=== PATIENT | female | born 1990 | race Caucasian/White ===

== ENCOUNTER 2021-01-31 19:31 | Emergency (ER) | payer OTHER ==
[2021-01-31 19:57] VITALS: BP 123/72
--- NOTE | 2021-01-31 20:15 | ED Physician Documentation ---
History of Present Illness - Stated complaint Stated Complaint: BLISTERS ON BACK - Chief complaint Chief Complaint: General - History obtained from History obtained from: Patient (Previously healthy 30-year-old woman developed and initially itchy and now painful rash to the left side of the upper back starting about 2 days ago. She kind of feels generally achy. And fatigue. No measured fevers. 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 - Present Medications Home Medications: Ambulatory Orders Medication Instructions Recorded Confirmed Valacyclovir HCl [Valtrex] 1,000 mg PO TID #30 tablet 01/31/21 predniSONE [Deltasone] 20 mg PO [id number] #21 tab 01/31/21 - Allergies Allergies/Adverse Reactions: Allergies Allergy/AdvReac Type Severity Reaction Status Date / Time No Known Drug Allergies Allergy Verified 01/31/21 19:57 - Social History Does the pt smoke?: No Smoking Status: Never smoker Does the pt drink ETOH?: No Does the pt have substance abuse?: No - Immunizations Immunizations are current?: Yes - POLST Patient has POLST: No PD ED PE NORMAL - Vitals Vital signs reviewed: Yes - General General: Alert and oriented X 3, No acute distress - HEENT HEENT: PERRL, EOMI - Neck Neck: No bony TTP - Derm Derm: Other (She has a patch of shingles on the left side of the back about T6. No superinfection.) - Neuro Neuro: Alert and oriented X 3, Normal speech Results - Vitals Vitals: Vital Signs - 24 hr 01/31/21 19:55 Temperature 36.2 C L Heart Rate 84 Respiratory 16 Rate Blood Pressure 123/72 O2 Saturation 99 Oxygen O2 Source Room air Departure - Departure Disposition: 01 Home, Self Care Clinical Impression: Herpes zoster Qualifiers: Herpes zoster complications: without complications Qualified Code(s): B02.9 - Zoster without complications Condition: Good Record reviewed to determine appropriate education?: Yes Instructions: ED Shingles Prescriptions: predniSONE [Deltasone] 20 mg PO [id number] #21 tab Valacyclovir HCl [Valtrex] 1,000 mg PO TID #30 tablet Comments: Return as needed for new or worsening symptoms. Mind the advice about being contagious for chickenpox until the area of shingles is crusted over.
[2021-01-31] MEDS: valACYclovir 500 MG TABLET PO STA (20:19)
[2021-01-31] MEDS: predniSONE 20 MG TABLET PO STA (20:19)
== END 2021-01-31 20:35 | disposition home or self-care (01) ==
LOC: ED 19:31
DX: B02.9 Zoster without complications (principal)
CPT/HCPCS: 99282; 99283; A9270; J7512

== ENCOUNTER 2021-03-17 11:00 | Outpatient (CLI) | payer OTHER ==
[2021-03-17 11:21] LABS: BASOPHILS % (AUTO) 0.5 %; EOSINOPHILS % (AUTO) 0.3 %; HCT - HEMATOCRIT 34.9 % (37.0-47.0); HGB - HEMOGLOBIN 12.9 g/dL (12.0-16.0); LYMPHOCYTES # (AUTO) 1.8 10^3/uL (1.5-3.5); LYMPHOCYTES % (AUTO) 29.3 %; MEAN CORPUSCULAR HEMOGLOBIN 32.4 pg (27.0-31.0); MEAN CORPUSCULAR VOLUME 87.7 fL (81.0-99.0); MONOCYTES # (AUTO) 0.4 10^3/uL (0.0-1.0); MONOCYTES % (AUTO) 6.8 %; NEUTROPHILS # (AUTO) 3.8 10^3/uL (1.5-6.6); NEUTROPHILS % (AUTO) 62.8 %; PLT - PLATELET COUNT 206 10^3/uL (130-450); RED BLOOD COUNT 3.98 10^6/uL (4.20-5.40); RED CELL DISTRIBUTION WIDTH 12.1 % (12.0-15.0); WHITE BLOOD COUNT 6.1 x10^3/uL (4.8-10.8)
[2021-03-18 10:02] LABS: HEPATITIS C ANTIBODY NON-REACTIVE (NON-REACTIVE)
[2021-03-18 14:41] LABS: HEPATITIS B SURFACE ANTIGEN NON-REACTIVE (NON-REACTIVE)
[2021-03-20 12:30] LABS: HIV AG/AB 4TH GEN NON-REACTIVE (NON-REACTIVE)
== END 2021-03-17 11:01 | disposition home or self-care (01) ==
LOC: LAB 11:00
PROVIDERS: ATTEND Obstetrics & Gynecology
DX: Z36.89 Encounter for other specified antenatal screening (principal); O20.9 Hemorrhage in early pregnancy, unspecified
CPT/HCPCS: 36415; 84702; 85025; 86592; 86762; 86787; 86803; 86850; 86900; 86901; 87340; 87389

== ENCOUNTER 2021-03-17 17:46 | Emergency (ER) | payer OTHER ==
[2021-03-17 18:16] LABS: BASOPHILS % (AUTO) 0.3 %; EOSINOPHILS % (AUTO) 0.3 %; HCT - HEMATOCRIT 35.5 % (37.0-47.0); LYMPHOCYTES # (AUTO) 2.3 10^3/uL (1.5-3.5); LYMPHOCYTES % (AUTO) 31.2 %; MEAN CORPUSCULAR HEMOGLOBIN 31.9 pg (27.0-31.0); MEAN CORPUSCULAR HGB CONC 36.6 g/dL (32.0-36.0); MEAN PLATELET VOLUME 9.9 fL (7.9-10.8); MONOCYTES # (AUTO) 0.4 10^3/uL (0.0-1.0); NEUTROPHILS # (AUTO) 4.5 10^3/uL (1.5-6.6); NEUTROPHILS % (AUTO) 61.9 %; PLT - PLATELET COUNT 228 10^3/uL (130-450); RED BLOOD COUNT 4.08 10^6/uL (4.20-5.40); RED CELL DISTRIBUTION WIDTH 12.1 % (12.0-15.0); WHITE BLOOD COUNT 7.3 x10^3/uL (4.8-10.8)
[2021-03-17 18:29] LABS: ALBUMIN 4.5 g/dL (3.2-5.5); ALBUMIN/GLOBULIN RATIO 1.5 (1.0-2.2); BILIRUBIN,TOTAL 0.7 mg/dL (0.2-1.0); CALCIUM 9.3 mg/dL (8.5-10.3); CREATININE 0.7 mg/dL (0.4-1.0); POTASSIUM 3.6 mmol/L (3.5-5.0); TOTAL PROTEIN 7.6 g/dL (6.7-8.2)
[2021-03-17] MEDS ORDERED: ACETAMINOPHEN 325 MG TABLET PO STA (18:42)
--- NOTE | 2021-03-17 18:43 | ED Physician Documentation ---
PD HPI ABD PAIN - Stated complaint Stated Complaint: BLEEDING,DIZZY,BACK PX, CRAMPS +PREG - Chief complaint Chief Complaint: Abd Pain - History obtained from History obtained from: Patient - History of Present Illness Pain level max: 5 Pain level now: 4 - Additional information Additional information: Patient is a 30-year-old female, 3 para 2 who presents to the emergency department with abdominal pain and cramping. She states that she believes she is about 9 weeks . Has had vaginal bleeding/spotting last night and today. Nothing makes it better or worse. No nausea or vomiting. No diarrhea or constipation. No fevers. No chills. No coughing. Review of Systems Constitutional: denies: Fever, Chills Throat: denies: Sore throat Cardiac: denies: Chest pain / pressure, Palpitations Respiratory: denies: Cough GI: reports: Abdominal Pain (Lower abdomen, crampy). 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 - Present Medications Home Medications: Ambulatory Orders Medication Instructions Recorded Confirmed Metoclopramide [Reglan] 5 mg PO Q6HR PRN 03/17/21 03/17/21 - Allergies Allergies/Adverse Reactions: Allergies Allergy/AdvReac Type Severity Reaction Status Date / Time No Known Drug Allergies Allergy Verified 03/17/21 17:55 - Social History Does the pt smoke?: No Smoking Status: Never smoker Does the pt drink ETOH?: No Does the pt have substance abuse?: No - Immunizations Immunizations are current?: Yes - POLST Patient has POLST: No PD ED PE NORMAL - Vitals Vital signs reviewed: Yes - General General: Alert and oriented X 3, No acute distress - HEENT HEENT: Moist mucous membranes - Neck Neck: Supple, no meningeal sign - Cardiac Cardiac: RRR - Respiratory Respiratory: No respiratory distress, Clear bilaterally - Abdomen Abdomen: Soft, Non distended, Other (Mild diffuse lower abdominal tenderness to palpation. No peritoneal signs.) - Back Back: No CVA TTP, No spinal TTP - Derm Derm: Warm and dry, No rash - Extremities Extremities: No edema, No calf tenderness / cord - Neuro Neuro: Alert and oriented X 3 - Psych Psych: Normal mood, Normal affect Results - Vitals Vitals: Vital Signs - 24 hr 03/17/21 03/17/21 03/17/21 17:51 18:34 20:05 Temperature 36.7 C Heart Rate 105 H 88 78 Respiratory 18 18 18 Rate Blood Pressure 114/82 H O2 Saturation 98 98 100 03/17/21 21:47 Temperature 37.0 C Heart Rate 89 Respiratory 12 Rate Blood Pressure 122/78 O2 Saturation 100 Oxygen O2 Source Room air - Labs Labs: Laboratory Tests 03/17/21 03/17/21 03/17/21 18:00 18:09 18:09 WBC 7.3 RBC 4.08 L Hgb 13.0 Hct 35.5 L MCV 87.0 MCH 31.9 H MCHC 36.6 H RDW 12.1 Plt Count 228 MPV 9.9 Neut # (Auto) 4.5 Lymph # (Auto) 2.3 [place] # (Auto) 0.4 Eos # (Auto) 0.0 Baso # (Auto) 0.0 Absolute Nucleated RBC 0.00 Nucleated RBC % 0.0 Sodium 137 Potassium 3.6 Chloride 103 Carbon Dioxide 24 Anion Gap 10.0 BUN 12 Creatinine 0.7 Estimated GFR (MDRD) 100 Glucose 110 H Calcium 9.3 Total Bilirubin 0.7 AST 18 ALT 16 Alkaline Phosphatase 51 Total Protein 7.6 Albumin 4.5 Globulin 3.1 Albumin/Globulin Ratio 1.5 Lipase 33 HCG, Quant Urine Color YELLOW Urine Clarity HAZY Urine pH 7.5 Ur Specific [place] 1.010 Urine Protein NEGATIVE Urine Glucose (UA) NEGATIVE Urine Ketones NEGATIVE Urine Occult Blood MODERATE H Urine Nitrite NEGATIVE Urine Bilirubin NEGATIVE Urine Urobilinogen 0.2 (NORMAL) Ur Leukocyte Esterase NEGATIVE Urine RBC 6-10 H Urine WBC 4-5 Ur Squamous Epith Cells MOD Squamous H Urine Bacteria Few Urine Mucus Few Strands Ur Microscopic Review INDICATED Urine Culture Comments NOT INDICATED 03/17/21 18:09 WBC RBC Hgb Hct MCV MCH MCHC RDW Plt Count MPV Neut # (Auto) Lymph # (Auto) [place] # (Auto) Eos # (Auto) Baso # (Auto) Absolute Nucleated RBC Nucleated RBC % Sodium Potassium Chloride Carbon Dioxide Anion Gap BUN Creatinine Estimated GFR (MDRD) Glucose Calcium Total Bilirubin AST ALT Alkaline Phosphatase Total Protein Albumin Globulin Albumin/Globulin Ratio Lipase HCG, Quant 660887.00 Urine Color Urine Clarity Urine pH Ur Specific [place] Urine Protein Urine Glucose (UA) Urine Ketones Urine Occult Blood Urine Nitrite Urine Bilirubin Urine Urobilinogen Ur Leukocyte Esterase Urine RBC Urine WBC Ur Squamous Epith Cells Urine Bacteria Urine Mucus Ur Microscopic Review Urine Culture Comments - Rads (name of study) OB US Radiology: Prelim report reviewed, EMP read contemporaneously, See rad report (Live IUP. Small subchorionic hemorrhage. Right corpus luteum cyst. Approximately 7 weeks 3 days) PD MEDICAL DECISION MAKING - ED course Complexity details: reviewed results, re-evaluated patient, considered differential, d/w patient ED course: 30-year-old female with vaginal bleeding affecting early . Has a live IUP. No significant lab abnormalities. She has approximately 7 weeks EGA. We will have her follow-up with OB for further care. Patient counseled regarding signs and symptoms for which I believe and urgent re-evaluation would be necessary. Patient with good understanding of and agreement to plan and is comfortable going home at this time This document was made in part using voice recognition software. While efforts are made to proofread this document, sound alike and grammatical errors may occur. No evidence of ectopic or heterotopic Departure - Departure Disposition: 01 Home, Self Care Clinical Impression: Vaginal bleeding affecting early Condition: Good Instructions: ED Miscarriage Poss Follow-Up: Provider,Other [Primary Care Provider] - Doug Turner MD [Provider Admit Priv/Credential] - Comments: Please follow-up with OB for further care. They should repeat your hCG in 3 to 4 days. Return if you worsen. Your ultrasound shows that you are about 7 weeks along. You do have a very small subchorionic hemorrhage, this is often seen in early . There is a heartbeat present. Discharge Date/Time: 03/17/21 21:50
[2021-03-17 19:01] LABS: BILIRUBIN,URINE NEGATIVE (NEGATIVE); GLUCOSE, URINE (UA) NEGATIVE (NEGATIVE); KETONES,URINE (UA) NEGATIVE (NEGATIVE); LEUKOCYTE ESTERASE, URINE NEGATIVE (NEGATIVE); NITRITE,URINE NEGATIVE (NEGATIVE); OCCULT BLOOD,URINE MODERATE (NEGATIVE); PH,URINE 7.5 PH (5.0-7.5); PROTEIN,URINE NEGATIVE (NEGATIVE); UROBILINOGEN,URINE 0.2 (NORMAL) E.U./dL (NORMAL)
[2021-03-17 19:02] LABS: CLARITY,URINE HAZY (CLEAR)
[2021-03-17 19:10] LABS: BACTERIA,URINE Few /HPF (None Seen); MUCUS,URINE Few Strands; SQUAMOUS EPITHELIAL CELL,UR MOD Squamous (<= Few)
[2021-03-17 21:47] VITALS: BP 122/78
--- NOTE | 2021-03-17 21:55 | Ultrasound Report ---
PROCEDURE: OB First Trimester w/TV INDICATIONS: preg, vag bleed OUTSIDE/PRIOR DATING DATA: Last menstrual period (LMP): 01/13/2021. LMP-based estimated date of delivery (LATRELL): 10/20/2021. First dating scan (date and location): 03/17/2021. Estimated date of delivery (LATRELL) from first dating scan: 11/01/2021. TECHNIQUE: Real-time scanning was performed of the fetus and maternal pelvic organs, with image documentation. Endovaginal scanning was also performed to better visualize the fetus and maternal ovaries. COMPARISON: None. FINDINGS: Embryo: There is an intrauterine with a gestational sac, yolk sac, and pole identifi ed. The crown-rump length measures up to 1.1 cm corresponding to a gestational age of 7 weeks 2 days. There is heart motion with a rate of 1 45 bpm. There is a heterogeneous hypoechoic perigestati onal region compatible with a subchorionic hematoma measuring approximately 2.7 x 1.1 x 1.3 cm. The c ervix is closed and measures approximately 4.9 cm. Measurement variability in dating: +/- 4 weeks by LMP, +/- 7 days by mean sac diameter (use before 6 weeks gestation if crown-rump length not able to be measured), +/- 5 days by crown-rump length (6-12 weeks gestation). Maternal organs: Ovaries appear within normal size limits. There is a hypoechoic oval structure with in the right ovary with peripheral vascularity on color Doppler interrogation suggestive of a corpus luteal cyst. This measures approximately 2.3 x 2.1 x 1.9 cm. There is patent arterial and venous flow demonstrated within the right ovary.. IMPRESSION: 1. Single living intrauterine with calculated gestational age of 7 weeks 2 days correspondi ng to an estimated delivery date of 11/01/2021. 2. Small subchorionic hematoma demonstrated. Recommend clinical follow-up and repeat ultrasound if in dicated. Reviewed by: Saud Matthews MD on 03/17/2021 9:54 PM PST Approved by: Sadu Matthews MD on 03/17/2021 9:54 PM PST Station ID: [id number]
== END 2021-03-17 21:50 | disposition home or self-care (01) ==
LOC: ED 17:46
DX: O46.91 Antepartum hemorrhage, unspecified, first trimester (principal); Z3A.01 Less than 8 weeks gestation of pregnancy; O20.9 Hemorrhage in early pregnancy, unspecified; Z36.89 Encounter for other specified antenatal screening
CPT/HCPCS: 36415; 76801; 76817; 80053; 81001; 83690; 84702; 85025; 86592; 86762; 86787; 86803; 86850; 86900; 86901; 87340; 87389; 99282; 99284; A9270; 81003; 87086

== ENCOUNTER 2021-03-20 12:08 | Outpatient (CLI) | payer OTHER | END 2021-03-20 12:09 | disposition home or self-care (01) | LOC: LAB 12:08 | PROVIDERS: ATTEND Obstetrics & Gynecology | DX: O20.9 Hemorrhage in early pregnancy, unspecified (principal) | CPT/HCPCS: 36415; 84702 ==

== ENCOUNTER 2021-03-30 10:18 | Outpatient (CLI) | payer OTHER ==
--- NOTE | 2021-03-31 14:06 | Ultrasound Report ---
PROCEDURE: OB First Trimester INDICATIONS: POSITIVE TEST, DATING OUTSIDE/PRIOR DATING DATA: Last menstrual period (LMP): 01/13/2021. LMP-based estimated date of delivery (LATRELL): 10/20/2021. First dating scan (date and location): 03/17/2021. Estimated date of delivery (LATRELL) from first dating scan: 11/01/2021. The below data below was generated using the ultrasound LATRELL of 11/01/2021 TECHNIQUE: Real-time scanning was performed of the fetus and maternal pelvic organs, with image documentation. COMPARISON: OB ultrasound 03/17/2021 FINDINGS: Embryo: Single live intrauterine is identified with crown-rump length measuring 2.3 cm coa rse 9-9 weeks 0 days. Previous subchorionic hemorrhage is no longer visualized. Heart rate: 173 bpm. Measurement variability in dating: +/- 4 weeks by LMP, +/- 7 days by mean sac diameter (use before 6 weeks gestation if crown-rump length not able to be measured), +/- 5 days by crown-rump length (6-12 weeks gestation). Maternal organs: Ovaries are unremarkable within visualized portions. IMPRESSION: 1. Single live intrauterine with ultrasound gestational age today of 9 weeks 0 days compare d to 9 weeks 1 day from initial ultrasound. 2. Previous subchorionic hemorrhage is no longer visualized. Reviewed by: Onelia Landon MD on 03/31/2021 2:04 PM PST Approved by: Onelia Landon MD on 03/31/2021 2:04 PM PST Station ID: [id number]
== END 2021-03-30 10:19 | disposition home or self-care (01) ==
LOC: DI 10:18
PROVIDERS: ATTEND Obstetrics & Gynecology
DX: Z32.01 Encounter for pregnancy test, result positive (principal)

== ENCOUNTER 2021-04-11 09:45 | Outpatient (CLI) | payer OTHER ==
[2021-04-11 10:36] LABS: % IRON SATURATION 28 % (20-50); IRON 103 ug/dL (28-170); TOTAL IRON BINDING CAPACITY 371 ug/dL (250-450); TRANSFERRIN 265 mg/dL (192-382)
== END 2021-04-11 09:46 | disposition home or self-care (01) ==
LOC: LAB 09:45
PROVIDERS: ATTEND Obstetrics & Gynecology
DX: O90.81 Anemia of the puerperium (principal)
CPT/HCPCS: 36415; 81599; 82728; 83020; 83540; 84466; 85014; 85018; 85041

== ENCOUNTER 2021-05-25 08:00 | Outpatient (CLI) | payer OTHER ==
[2021-05-25 15:54] LABS: BILIRUBIN,URINE NEGATIVE (NEGATIVE); GLUCOSE, URINE (UA) NEGATIVE (NEGATIVE); KETONES,URINE (UA) NEGATIVE (NEGATIVE); LEUKOCYTE ESTERASE, URINE NEGATIVE (NEGATIVE); NITRITE,URINE NEGATIVE (NEGATIVE); OCCULT BLOOD,URINE NEGATIVE (NEGATIVE); PROTEIN,URINE NEGATIVE (NEGATIVE); UROBILINOGEN,URINE 0.2 (NORMAL) E.U./dL (NORMAL)
[2021-05-25 16:47] LABS: BACTERIA,URINE None Seen /HPF (None Seen); CLARITY,URINE CLEAR (CLEAR); RBC,URINE None Seen /HPF (0-5); SQUAMOUS EPITHELIAL CELL,UR RARE Squamous (<= Few); WBC,URINE 0-3 /HPF (0-5)
[2021-05-25 21:17] LABS: CHLAMYDIA TRACHOMATIS DNA NEGATIVE (NEGATIVE); NEISSERIA GONORRHOEAE DNA NEGATIVE (NEGATIVE); TRICHOMONAS VAGINALIS DNA NEGATIVE (NEGATIVE)
== END 2021-05-25 23:59 ==
LOC: LAB 08:00
PROVIDERS: ATTEND Obstetrics & Gynecology
DX: R30.0 Dysuria (principal); Z11.3 Encounter for screening for infections with a predominantly sexual mode of transmission
CPT/HCPCS: 81001; 87086; 87491; 87591; 87661

== ENCOUNTER 2021-05-28 09:20 | Emergency (ER) | payer OTHER ==
--- NOTE | 2021-05-28 09:39 | ED Physician Documentation ---
History of Present Illness - Stated complaint Stated Complaint: ABD CRAMPING/BLEEDING - Chief complaint Chief Complaint: Abd Pain - History obtained from History obtained from: Patient - History of Present Illness Pain level max: 3 Pain level now: 2 - Additonal information Additional information: Patient is a 30-year-old female, 3 para 2 who presents to the emergency department vaginal bleeding. She states this is been ongoing intermittently for a few days but worsened last night. She states that she has had some abdominal cramping as well. She states she did have intercourse last night. She called her OB this morning who recommended she come here for an ultrasound. Has mild cramping. She states the bleeding is intermittent. Nothing makes it better or worse. 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 - Present Medications Home Medications: Ambulatory Orders Medication Instructions Recorded Confirmed Metoclopramide [Reglan] 5 mg PO Q6HR PRN 03/17/21 03/17/21 - Allergies Allergies/Adverse Reactions: Allergies Allergy/AdvReac Type Severity Reaction Status Date / Time No Known Drug Allergies Allergy Verified 05/28/21 09:26 - Social History Does the pt smoke?: No Smoking Status: Never smoker Does the pt drink ETOH?: No Does the pt have substance abuse?: No - Immunizations Immunizations are current?: Yes - POLST Patient has POLST: No PD ED PE NORMAL - Vitals Vital signs reviewed: Yes - General General: Alert and oriented X 3, No acute distress, Well developed/nourished - HEENT HEENT: PERRL, Moist mucous membranes - Neck Neck: Supple, no meningeal sign - Cardiac Cardiac: RRR, Strong equal pulses - Respiratory Respiratory: No respiratory distress, Clear bilaterally - Abdomen Abdomen: Soft, Non tender, Non distended - Back Back: No CVA TTP, No spinal TTP - Derm Derm: Warm and dry - Extremities Extremities: No edema, No calf tenderness / cord - Neuro Neuro: Alert and oriented X 3 - Psych Psych: Normal mood, Normal affect Results - Vitals Vitals: Vital Signs - 24 hr 05/28/21 05/28/21 05/28/21 09:26 09:28 11:36 Temperature 37.2 C 37.2 C 36.6 C Heart Rate 69 69 81 Respiratory 18 18 16 Rate Blood Pressure 126/72 126/72 113/68 O2 Saturation 99 99 100 Oxygen O2 Source Room air - Labs Labs: Laboratory Tests 05/28/21 05/28/21 09:59 09:59 Urine Color YELLOW Urine Clarity CLEAR Urine pH 6.0 Ur Specific [place] 1.020 Urine Protein NEGATIVE Urine Glucose (UA) NEGATIVE Urine Ketones NEGATIVE Urine Occult Blood LARGE H Urine Nitrite NEGATIVE Urine Bilirubin NEGATIVE Urine Urobilinogen 0.2 (NORMAL) Ur Leukocyte Esterase NEGATIVE Urine RBC 0-5 Urine WBC 0-3 Ur Squamous Epith Cells MOD Squamous H Urine Bacteria Few Ur Microscopic Review INDICATED Urine Culture Comments NOT INDICATED C. glabrata (PCR) NEGATIVE C. krusei (PCR) NEGATIVE [place] species DNA NEGATIVE T. vaginalis (PCR) NEGATIVE Bact Vaginosis (PCR) NEGATIVE - Rads (name of study) OB ultrasound Radiology: Final report received, EMP read contemporaneously, See rad report PD MEDICAL DECISION MAKING - ED course Complexity details: reviewed results, re-evaluated patient, considered differential, d/w patient ED course: Patient is a 30-year-old female who presents with vaginal bleeding. Ap proximately 17 weeks and 4 days EGA. Has a single live IUP. Does have placenta previa, about 2.4 cm over the internal os. A placental meeks versus hemorrhage, measuring 16 x 10 mm. Cervix is closed. I consulted Dr. Palm, OB, who will come and evaluate the patient as well. Patient is currently comfortable in the emergency department. Dr. Palm, OB came and evaluated the patient. The patient will be discharged on pelvic rest and follow-up with OB. Patient counseled regarding signs and symptoms for which I believe and urgent re-evaluation would be necessary. Patient with good understanding of and agreement to plan and is comfortable going home at this time This document was made in part using voice recognition software. While efforts are made to proofread this document, sound alike and grammatical errors may occur. IMPRESSION: Single live intrauterine . There is placenta previa. Along the inferior aspect of the placenta there is an apparent placental meeks versus prior hemorrhage measuring 16 x 10 mm. The cervix is closed, without funneling of the internal cervical os. Departure - Departure Disposition: 01 Home, Self Care Clinical Impression: Intrauterine , Vaginal bleeding affecting early Placenta previa Qualifiers: Trimester: second trimester Qualified Code(s): O44.02 - Complete placenta previa NOS or without hemorrhage, second trimester Condition: Good Instructions: Placenta Previa, ED Care Follow-Up: Mray Palm MD [Primary Care Provider] - Within 1 week Comments: Please follow-up with OB as directed by Dr. Palm today. Please return if you worsen. Continue pelvic rest as directed by Dr. Palm. Discharge Date/Time: 05/28/21 12:13
[2021-05-28 10:04] LABS: BILIRUBIN,URINE NEGATIVE (NEGATIVE); GLUCOSE, URINE (UA) NEGATIVE (NEGATIVE); KETONES,URINE (UA) NEGATIVE (NEGATIVE); LEUKOCYTE ESTERASE, URINE NEGATIVE (NEGATIVE); NITRITE,URINE NEGATIVE (NEGATIVE); OCCULT BLOOD,URINE LARGE (NEGATIVE); PROTEIN,URINE NEGATIVE (NEGATIVE); UROBILINOGEN,URINE 0.2 (NORMAL) E.U./dL (NORMAL)
[2021-05-28 10:13] LABS: CLARITY,URINE CLEAR (CLEAR)
[2021-05-28 10:16] LABS: BACTERIA,URINE Few /HPF (None Seen); RBC,URINE 0-5 /HPF (0-5); SQUAMOUS EPITHELIAL CELL,UR MOD Squamous (<= Few); WBC,URINE 0-3 /HPF (0-5)
--- NOTE | 2021-05-28 11:21 | Ultrasound Report ---
PROCEDURE: OB Limited INDICATIONS: 17 WEEK PREG, VB OUTSIDE/PRIOR DATING DATA: Last menstrual period (LMP): 01/13/2021. LMP-based estimated date of delivery (LATRELL): 10/20/2021. First dating scan (date and location): 03/17/2021, [facility]. Estimated date of delivery (LATRELL) from first dating scan: 11/01/2021. The below data below was generated using the ultrasound LATRELL of 11/01/2021 TECHNIQUE: Real-time scanning was performed of the fetus, with image documentation. Endovaginal scanning: Was performed for additional visualization COMPARISON: 03/17/2021, 03/30/2021 FINDINGS: A single live intrauterine gestation is present. Presentation: Vertex Placenta: Placental position is posterior, with placenta previa seen at this time. Along the anterior aspect of the placenta, there is a nearly anechoic placental meeks versus prior hemorrhage measuring 16 x 10 mm. Amniotic fluid index: 12.1 cm, within normal limits for gestational age. heart rate: 141 beats per minutes. Maternal cervical canal: 4.3 cm long; normal length is 2.5 cm or more. The cervix is closed, without funneling of the internal cervical os. Estimated gestational age from initial scan: 17 weeks 4 days. IMPRESSION: Single live intrauterine . There is placenta previa. Along the inferior aspect of the placenta there is an apparent placental la ke versus prior hemorrhage measuring 16 x 10 mm. The cervix is closed, without funneling of the internal cervical os. Note: Concordant preliminary findings given by the civil engineer land development upon the completion of the examination to Dr. Park. Reviewed by: Felipe De La Fuente MD on 05/28/2021 10:19 AM CAR[facility]E Approved by: Felipe De La Fuente MD on 05/28/2021 10:19 AM CARRIE Station ID: [id number]
--- NOTE | 2021-05-28 11:28 | Ultrasound Report ---
PROCEDURE: OB Transvaginal INDICATIONS: 17 weeks preg, vag bleeding OUTSIDE/PRIOR DATING DATA: Last menstrual period (LMP): 01/13/2021. LMP-based estimated date of delive ry (LATRELL): 10/20/2021. First dating scan (date and location): 03/17/2021, [facility]. Estimated date of delivery (LATRELL) from first dating scan: 11/01/2021. The below data below was generated using the ultrasound LATRELL of 11/01/2021 TECHNIQUE: Real-time scanning was performed of the fetus, with image documentation. Endovaginal scann ing: Was performed for additional visualization COMPARISON: 03/17/2021, 03/30/2021 FINDINGS: A single live intrauterine gestation is present. Presentat ion: Vertex Placenta: Placental position is posterior, with placenta previa seen at this time. Along the anterior aspect of the placenta, there is a nearly anechoic placental meeks versus prior hemorrhag e measuring 16 x 10 mm. Amniotic fluid index: 12.1 cm, within normal limits for gestational age. Feta l heart rate: 141 beats per minutes. Maternal cervical canal: 4.3 cm long; normal length is 2.5 cm or more. The cervix is closed, without funneling of the internal cervical os. Estimated gestational age from initial scan: 17 weeks 4 days. IMPRESSION: Single live intrauterine . There is placenta previa. Along the inferior aspect of the placenta there is an apparent placental la ke versus prior hemorrhage measuring 16 x 10 mm. The cervix is closed, without funneling of the internal cervical os. Note: Concordant preliminary findings given by the rfid engineer upon the completion of the examination to Dr. Park. Reviewed by: Felipe De La Fuente MD on 05/28/2021 10:26 AM CARRIE Approved by: Felipe De La Fuente MD on 05/28/2021 10:26 AM CARRIE Station ID: [id number]
[2021-05-28 11:37] VITALS: BP 113/68
[2021-05-28 12:25] LABS: BACTERIAL VAGINOSIS DNA NEGATIVE (NEGATIVE); CANDIDA GLABRATA DNA NEGATIVE (NEGATIVE); CANDIDA GROUP DNA NEGATIVE (NEGATIVE); CANDIDA KRUSEI DNA NEGATIVE (NEGATIVE); TRICHOMONAS VAGINALIS DNA NEGATIVE (NEGATIVE)
== END 2021-05-28 12:13 | disposition home or self-care (01) ==
LOC: ED 09:20
DX: O44.12 Complete placenta previa with hemorrhage, second trimester (principal); Z3A.17 17 weeks gestation of pregnancy
CPT/HCPCS: 81001; 81003; 87086; 87661; 87801; 99283; 99284

== ENCOUNTER 2021-06-19 15:17 | Outpatient (CLI) | payer OTHER ==
--- NOTE | 2021-06-20 15:37 | Ultrasound Report ---
PROCEDURE: OB Detailed Eval INDICATIONS: SUPERVISION OF OUTSIDE/PRIOR DATING DATA: Last menstrual period (LMP): 01/13/2021. LMP-based estimated date of delivery (LATRELL): 10/20/2021. First dating scan (date and location): 03/17/2021. Estimated date of delivery (LATRELL) from first dating scan: 11/01/2021. The below data below was generated using the ultrasound LATRELL of 11/01/2021 TECHNIQUE: Real-time scanning was performed of the fetus, with image documentation and biometric measurements. COMPARISON: OB ultrasound, 03/17/2021, 03/30/2021, 05/28/2021. FINDINGS: General: A single living intrauterine gestation is present. Presentation: Vertex. Placenta: Placental position is posterior, with previa. The inferior margin of placenta covers the i nternal os. Amniotic fluid index: 13.3 cm; largest pocket 3.8 cm. heart rate: 150 beats per minute. Maternal cervical canal: 4.8 cm long; closed. biometrics: Biparietal diameter: 20 weeks 5 days. Head circumference: 20 weeks 4 days. Abdominal circumference: 21 weeks 0 day. Femur length: 20 weeks 3 days. Estimated gestational age from initial scan: 20 weeks 5 days.. Composite gestational age from present scan: 20 weeks 3 days. Estimated weight and percentile: 374 g; 46.3%. Measurement variability in biometric dating: +/- 10 days from 12-20 weeks gestation, +/- 2 weeks from 20-30 weeks gestation, +/- 3 weeks at 30 weeks gestation or later. Anatomic survey: Neuro: Ventricles are normal at less than 10 mm. Cisterna magna is normal at 3-11 mm. Cerebellum i s normal in size and morphology. Nuchal skin fold: Normal at less than 6 mm between 14 and 20 weeks gestational age. Face: Nose and lips, facial profile are normal. Spine: No evidence for spina bifida. Heart: 4-chambered heart is present, with suboptimal visualization of ventricular outflow tracts. Diaphragm: Diaphragm is intact. Stomach: Left-sided stomach is present. Kidneys: No hydronephrosis. Normal is less than 5 mm in 2nd trimester, less than 7 mm in 3rd trimester. Cord: 3 vessel cord has orthotopic insertion. Bladder: Normal in size. Extremities: All 4 extremities are visualized. IMPRESSION: 1. A single living IUP with appropriate interval growth. weight at 46.3% for gestational age. 2. The cardiac outflow tracts are subsequently visualized. Otherwise normal anatomic surv ey. Follow-up imaging suggested. 3. Placenta previa. Reviewed by: Wojciech Oliver MD on 06/20/2021 3:36 PM PDT Approved by: Wojciech Oliver MD on 06/20/2021 3:36 PM PDT Station ID: [id number]
== END 2021-06-19 15:18 | disposition home or self-care (01) ==
LOC: DI 15:17
PROVIDERS: ATTEND Obstetrics & Gynecology
DX: O09.92 Supervision of high risk pregnancy, unspecified, second trimester (principal); Z36.89 Encounter for other specified antenatal screening; O44.02 Complete placenta previa NOS or without hemorrhage, second trimester; Z3A.20 20 weeks gestation of pregnancy

== ENCOUNTER 2021-07-10 18:28 | Outpatient (CLI) | payer OTHER ==
--- NOTE | 2021-07-11 14:00 | Ultrasound Report ---
PROCEDURE: OB F/U or Repeat INDICATIONS: SUPERVISION OF OUTSIDE/PRIOR DATING DATA: Last menstrual period (LMP): 01/13/2021. LMP-based estimated date of delivery (LATRELL): 10/20/2021. First dating scan (date and location): 03/17/2021. Estimated date of delivery (LATRELL) from first dating scan: 11/02/2019. The below data below was generated using the ultrasound LATRELL of 11/01/2021 TECHNIQUE: Real-time scanning was performed of the fetus, with image documentation and biometric measurements. COMPARISON: OB ultrasound 06/19/2021, 03/17/2021 FINDINGS: General: A single living intrauterine gestation is present. Presentation: Transverse Placenta: Placental position is posterior. It is low-lying approximately 8 mm from the internal os. Amniotic fluid index: 13.4 cm, within normal limits for gestational age. Largest pocket 3.9 cm heart rate: 155 beats per minute. Maternal cervical canal: 3.6 cm long; normal length is 2.5 cm or more. biometrics: Estimated gestational age from initial scan: 22 weeks 5 days Other: Cardiac outflow tracts are within normal limits. IMPRESSION: Single live intrauterine with gestational age of 22 weeks 5 days. Outflow tracts are within normal limits. The placenta is low-lying, 8 mm from the internal os. Reviewed by: Onelia Landon MD on 07/11/2021 12:58 PM CARRIE Approved by: Onelia Landon MD on 07/11/2021 12:58 PM CARRIE Station ID: [id number]
== END 2021-07-10 18:29 | disposition home or self-care (01) ==
LOC: DI 18:28
PROVIDERS: ATTEND Obstetrics & Gynecology
DX: O09.92 Supervision of high risk pregnancy, unspecified, second trimester (principal); O44.42 Low lying placenta NOS or without hemorrhage, second trimester; Z3A.22 22 weeks gestation of pregnancy

== ENCOUNTER 2021-07-25 21:56 | Outpatient (CLI) | payer OTHER ==
[2021-07-25 22:41] LABS: BILIRUBIN,URINE NEGATIVE (NEGATIVE); GLUCOSE, URINE (UA) NEGATIVE (NEGATIVE); KETONES,URINE (UA) NEGATIVE (NEGATIVE); LEUKOCYTE ESTERASE, URINE NEGATIVE (NEGATIVE); NITRITE,URINE NEGATIVE (NEGATIVE); OCCULT BLOOD,URINE NEGATIVE (NEGATIVE); PH,URINE 7.5 PH (5.0-7.5); PROTEIN,URINE NEGATIVE (NEGATIVE); UROBILINOGEN,URINE 0.2 (NORMAL) E.U./dL (NORMAL)
[2021-07-25 22:50] LABS: BACTERIA,URINE Few /HPF (None Seen); CLARITY,URINE CLEAR (CLEAR); RBC,URINE None Seen /HPF (0-5); SQUAMOUS EPITHELIAL CELL,UR MOD Squamous (<= Few); WBC,URINE 0-3 /HPF (0-5)
[2021-07-25 22:59] VITALS: BP 118/71
--- NOTE | 2021-07-25 23:32 | Ultrasound Report ---
PROCEDURE: OB Transvaginal INDICATIONS: labor OUTSIDE/PRIOR DATING DATA: Last menstrual period (LMP): None evaluate. LMP-based estimated date of delivery (LATRELL): 10/20/2021. First dating scan (date and location): 03/17/2021. Estimated date of delivery (LATRELL) from first dating scan: 11/01/2021. The below data below was generated using the ultrasound LATRELL of 11/01/2021 TECHNIQUE: Real-time scanning was performed of the fetus, with image documentation. COMPARISON: 07/10/2021, 06/19/2021, 05/28/2021, 03/30/2021. FINDINGS: A single living intrauterine gestation is present. Presentation: Vertex Placenta: Placental position is posterior. The inferior margin of the placenta extends to the interna l cervical os. Amniotic fluid index: 14.8 cm, within normal limits for gestational age. Largest pocket measures 5.5 cm. heart rate: 148 beats per minutes. Maternal cervical canal: 4.8 cm long and appears closed; normal length is 2.5 cm or more. Estimated gestational age from initial scan: 25 weeks 6 days. IMPRESSION: 1. Single living intrauterine demonstrated in vertex presentation. 2. Low-lying placenta redemonstrated with the inferior margin of the placenta extending to the marketing research intern al cervical os. 3. Cervix appears closed and normal in length. 4. Amniotic fluid index within normal limits. Reviewed by: Saud Matthews MD on 07/25/2021 11:30 PM PDT Approved by: Saud Matthews MD on 07/25/2021 11:30 PM PDT Station ID: [id number]
--- NOTE | 2021-07-26 00:19 | PROVIDER PROGRESS NOTE ---
- HPI Chief Complaint: Labor Current : Vital Signs Temperature 98.4 F 07/25/21 22:14 Heart Rate 88 07/25/21 22:14 Respiratory Rate 18 07/25/21 22:14 Blood Pressure 118/71 07/25/21 22:14 Temperature 98.4 F 07/25/21 22:14 Heart Rate 88 07/25/21 22:14 Respiratory Rate 18 07/25/21 22:14 Blood Pressure 118/71 07/25/21 22:14 O2 Saturation - Procedures OB Procedure Performed: NST Service Date of procedure: 07/26/21 - Plan Plan: ID: Patient is a 31 yo at 26+ 0 wga with pelvic pain and pressure c/f lbor. HPI: Patient called answering service with complaint of pelvic pain and pressure with back pain feeling like "Baby is coming out". No LOF or VB. Has borderline placenta previa Has been on pelvic rest for 6 weeks. Reports stomach felt firmer than usual after having grilled hamburger (witout bun)for dinner. No bowel movement for 24 hours and had an "ollipop" tonic, which produced a bowel movement. Has never had labor and is unsure of what contractions feel like. PNC: Low lying placenta- pelvic rest. Breast pain- supportive tx. Hx of anemia with PICA: thalassemia and iron panel-WNL Umbilical hernia: Consult with Dr. Jurado 05/16/2021. Will manage . LMP: 01/13/2021 LATRELL by LMP: 10/20/2021 US Date 03/17/2021, US Age 7 weeks 2 days, LATRELL by ultrasound: 11/01/2021 Final LATRELL: 11/01/2001 by 7-week ultrasound A+/rubella: EQUIVOCAL Varicella: immune Genetic testing: Desires HARMONY (declined by insurance) Quad screen ordered, declines carrier screening. FAS:EFW 374g; 46.3%ile, 3VC, Placenta posterior WITH Previa, HAO 13.3cm. Cardiac outflow tracts cleared Glucola: at 28 weeks-ordered 07/20 Flu: 04/05/2021 TDAP: Next visit Covid: Pfizer #1 07/27/20; #2 08/17/20. 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 PE: VS: 98.4 88 118/71 18 GEN: NAD HEAD: NCAT EYES: No scleral icterus or conjunctival injection CV: RR RESP: normal effort ABD: gravid, S&NT/ND PSYCH: appropriate affect NEURO: alert and oriented, EXT: WWP SVE: deferred given incompletely resolved previa Neg FFN CL 4.8 cm UA wnl vaginitis panel pending EFM 135 mod preeti 15x15 accels TOCO: quiet A/P: Pelvic pressure in -Reassuring CL, neg FN, quiet tocometry; low concern for labor -Neg UA -Vaginitis panel pending FWB: Cat I tracing HAO wnl Reviewed warning signs and discharged patient to home DX: False labor
[2021-07-26 02:28] LABS: BACTERIAL VAGINOSIS DNA NEGATIVE (NEGATIVE); CANDIDA GLABRATA DNA NEGATIVE (NEGATIVE); CANDIDA GROUP DNA NEGATIVE (NEGATIVE); CANDIDA KRUSEI DNA NEGATIVE (NEGATIVE); TRICHOMONAS VAGINALIS DNA NEGATIVE (NEGATIVE)
== END 2021-07-26 00:30 | disposition home or self-care (01) ==
LOC: WFO 21:56 → FBP 21:58 → WFO 07-26 00:30
PROVIDERS: ATTEND Obstetrics & Gynecology
DX: O47.02 False labor before 37 completed weeks of gestation, second trimester (principal); O44.42 Low lying placenta NOS or without hemorrhage, second trimester; Z3A.26 26 weeks gestation of pregnancy; O99.612 Diseases of the digestive system complicating pregnancy, second trimester; K42.9 Umbilical hernia without obstruction or gangrene
CPT/HCPCS: 36415; 81001; 81514; 82731; 87086; 87797; 99214

== ENCOUNTER 2021-08-21 08:23 | Outpatient (CLI) | payer OTHER ==
[2021-08-21 08:56] LABS: GTT GLUCOSE,FASTING 93 mg/dL (70-100)
== END 2021-08-21 08:24 | disposition home or self-care (01) ==
LOC: LAB 08:23
PROVIDERS: ATTEND Obstetrics & Gynecology
DX: O99.810 Abnormal glucose complicating pregnancy (principal)
CPT/HCPCS: 36415; 82951; 82952

== ENCOUNTER 2021-08-22 14:25 | Outpatient (CLI) | payer OTHER ==
[2021-08-22] MEDS ORDERED: LACTATED RINGERS 1,000 ML IV ONE (14:59)
[2021-08-22] MEDS ORDERED: LACTATED RINGERS 1,000 ML IV SCH (15:13)
--- NOTE | 2021-08-22 15:42 | HISTORY & PHYSICAL EXAMINATION ---
Admit History - Visit Reason Visit Reason: Other (Patient presents with complaints of decreased movement and positive home COVID test.) - : 3 Parity: 2 Care: positive: [facility] Risk/History: positive: None Complications This : positive: Other (low lying placenta) Smoking Status: Never smoker - Mother's Labs Mother's Blood Type: positive: A Mother's RH: positive: Positive Rubella Status: positive: Equivocal - Other Maternal History Other Maternal History: She has noted decreased movement in the last 2 hours. Yesterday she had a positive home COVID test. Her and children are also COVID-positive. She reports a headache not relieved by Tylenol. She also notes sore throat, Dry cough and intermittent chest pain. Meds/Allgy - Home Medications Home Medications: Ambulatory Orders Medication Instructions Recorded Confirmed Metoclopramide [Reglan] 5 mg PO Q6HR PRN 03/17/21 03/17/21 - Allergies Allergies/Adverse Reactions: Allergies Allergy/AdvReac Type Severity Reaction Status Date / Time No Known Drug Allergies Allergy Verified 05/28/21 09:26 Review of Systems - Constitutional Constitutional: reports: Fatigue, Fever, Chills, Night sweats - Ears, Nose & Throat Ears, Nose & Throat: reports: Sore throat - Cardiovascular Cariovascular: reports: Chest pain - Respiratory Respiratory: reports: Cough - Musculoskeletal Musculoskeletal: reports: Muscle aches Physical - Abdominal Exam Vital Signs: Temp Pulse Resp BP Pulse Ox 99.6 F 120 H 20 116/63 08/22/21 14:38 08/22/21 14:38 08/22/21 14:38 08/22/21 14:38 Uterine Resting Tone: positive: Soft - Monitoring Heart Rate Baseline: 150 - Other Notes Labor Progress Note/Additional Text: PE:- Generalalert and oriented x3. Generalized malaise Hearttachycardia Lungsclear to auscultation bilaterally Abdomen soft nontender gravid Lower extremitiesno edema Plan for Labor - Plan For Labor Plan for Labor: Lab Results x24hrs 08/22/21 08/22/21 08/22/21 16:35 15:45 15:30 WBC RBC Hgb Hct MCV MCH MCHC RDW Plt Count MPV Neut # (Auto) Lymph # (Auto) Charles # (Auto) Eos # (Auto) Baso # (Auto) Absolute Nucleated RBC Nucleated RBC % Sodium Potassium Chloride Carbon Dioxide Anion Gap BUN Creatinine Estimated GFR (MDRD) Glucose Calcium Total Bilirubin 0.5 mg/dL mg/dL (0.2-1.0) Direct Bilirubin 0.1 mg/dL mg/dL (0.1-0.5) AST 18 IU/L IU/L (10-42) ALT 15 IU/L IU/L (10-60) Alkaline Phosphatase 59 IU/L IU/L (42-121) Troponin I High Sens Total Protein 6.6 g/dL L g/dL (6.7-8.2) Albumin 3.2 g/dL g/dL (3.2-5.5) Globulin 3.4 g/dL g/dL (2.1-4.2) Urine Color YELLOW Urine Clarity CLEAR (CLEAR) Urine pH 6.0 PH PH (5.0-7.5) Ur Specific [place] <=1.005 (1.002-1.030) Urine Protein NEGATIVE mg/dL mg/dL (NEGATIVE) Urine Glucose (UA) NEGATIVE mg/dL mg/dL (NEGATIVE) Urine Ketones 15 mg/dL H mg/dL (NEGATIVE) Urine Occult Blood NEGATIVE (NEGATIVE) Urine Nitrite NEGATIVE (NEGATIVE) Urine Bilirubin NEGATIVE (NEGATIVE) Urine Urobilinogen 0.2 (NORMAL) E.U./dL E.U./dL (NORMAL) Ur Leukocyte Esterase NEGATIVE (NEGATIVE) Urine RBC 0-5 /HPF /HPF (0-5) Urine WBC 0-3 /HPF /HPF (0-5) Ur Squamous Epith Cells RARE Squamous (<= Few) Urine Bacteria Rare /HPF /HPF (None Seen) Urine Culture Comments NOT INDICATED Nasal Adenovirus (PCR) NOT DETECTED Nasal B. parapertussis DNA (PCR) NOT DETECTED Nasal Coronavir 229E PCR NOT DETECTED Nasal Coronavir HKU1 PCR NOT DETECTED Nasal Coronavir NL63 PCR NOT DETECTED Nasal Coronavir OC43 PCR NOT DETECTED Nasal Enterovir/Rhinovir PCR NOT DETECTED Nasal Influenza B PCR NOT DETECTED Nasal Influenza A PCR NOT DETECTED Nasal Parainfluen 1 PCR NOT DETECTED Nasal Parainfluen 2 PCR NOT DETECTED Nasal Parainfluen 3 PCR NOT DETECTED Nasal Parainfluen 4 PCR NOT DETECTED Nasal RSV (PCR) NOT DETECTED Nasal B.pertussis DNA PCR NOT DETECTED Nasal C.pneumoniae (PCR) NOT DETECTED Reyes Human Metapneumo PCR NOT DETECTED Nasal M.pneumoniae (PCR) NOT DETECTED Nasal SARS-CoV-2 (PCR) DETECTED A 08/22/21 08/22/21 08/22/21 15:20 15:20 15:20 WBC 7.3 x10^3/uL x10^3/uL (4.8-10.8) RBC 3.42 10^6/uL L 10^6/uL (4.20-5.40) Hgb 11.0 g/dL L g/dL (12.0-16.0) Hct 31.1 % L % (37.0-47.0) MCV 90.9 fL fL (81.0-99.0) MCH 32.2 pg H pg (27.0-31.0) MCHC 35.4 g/dL g/dL (32.0-36.0) RDW 13.4 % % (12.0-15.0) Plt Count 123 10^3/uL L 10^3/uL (130-450) MPV 10.2 fL fL (7.9-10.8) Neut # (Auto) 5.7 10^3/uL 10^3/uL (1.5-6.6) Lymph # (Auto) 0.8 10^3/uL L 10^3/uL (1.5-3.5) Charles # (Auto) 0.6 10^3/uL 10^3/uL (0.0-1.0) Eos # (Auto) 0.0 10^3/uL 10^3/uL (0.0-0.7) Baso # (Auto) 0.0 10^3/uL 10^3/uL (0.0-0.1) Absolute Nucleated RBC 0.00 x10^3/uL x10^3/uL Nucleated RBC % 0.0 /100WBC /100WBC Sodium 134 mmol/L L mmol/L (135-145) Potassium 3.7 mmol/L mmol/L (3.5-5.0) Chloride 102 mmol/L mmol/L (101-111) Carbon Dioxide 21 mmol/L mmol/L (21-32) Anion Gap 11.0 (6-13) BUN 6 mg/dL mg/dL (6-20) Creatinine 0.5 mg/dL mg/dL (0.4-1.0) Estimated GFR (MDRD) 146 (>89) Glucose 94 mg/dL mg/dL (70-100) Calcium 8.7 mg/dL mg/dL (8.5-10.3) Total Bilirubin Direct Bilirubin AST ALT Alkaline Phosphatase Troponin I High Sens < 2.3 ng/L L ng/L (2.3-14.8) Total Protein Albumin Globulin Urine Color Urine Clarity Urine pH Ur Specific [place] Urine Protein Urine Glucose (UA) Urine Ketones Urine Occult Blood Urine Nitrite Urine Bilirubin Urine Urobilinogen Ur Leukocyte Esterase Urine RBC Urine WBC Ur Squamous Epith Cells Urine Bacteria Urine Culture Comments Nasal Adenovirus (PCR) Nasal B. parapertussis DNA (PCR) Nasal Coronavir 229E PCR Nasal Coronavir HKU1 PCR Nasal Coronavir NL63 PCR Nasal Coronavir OC43 PCR Nasal Enterovir/Rhinovir PCR Nasal Influenza B PCR Nasal Influenza A PCR Nasal Parainfluen 1 PCR Nasal Parainfluen 2 PCR Nasal Parainfluen 3 PCR Nasal Parainfluen 4 PCR Nasal RSV (PCR) Nasal B.pertussis DNA PCR Nasal C.pneumoniae (PCR) Reyes Human Metapneumo PCR Nasal M.pneumoniae (PCR) Nasal SARS-CoV-2 (PCR) 31-year-old at 29 weeks 6 days who presents with complaints of decreased movement and positive home COVID test. #COVID-positive.Positive COVID test yesterday after presenting with symptoms x1 day. PCR on presentation also positive. Febrile 100.4. Mild tachycardia no aliya vital signs otherwise within normal limits. Physical exam with tachycardia noted. Patient was discussed with Carolina Saldivar. Recommendations for symptomatic treatment. Recommended against paxlovid at this time as patient with no additional comorbidities.Discussed monoclonal antibodies and per MFM may give if available otherwise recommend symptomatic treatment and outpatient management. Pharmacy contacted regarding monoclonal antibody. #Decreased movementfetal monitoring reactive and reassuring at this time #Low-lying placentapatient with low-lying placenta noted on ultrasound. Stable at this time. Patient was counseled extensively regarding Bebtelovimab. She understands that medication is under emergency use authorization. She understands there is limited evidence of treatment in . She understands the risk and benefits associated with receiving the medication. All questions and concerns were answered and the patient was given a patient fact sheet to review. Following counseling she agreed to receive she was given the option to receive the medication or continue expectant management with supportive treatment at home. The patient desired to receive Bebtelovimab. Consents were signed. Following administration the patient was monitored and no adverse reactions were immediately noted. The patient noted immediate improvement in COVID related symptoms. She was instructed to continue kick counts and report worsening symptoms to clinic. Recommend follow-up with OB this week.
[2021-08-22 15:46] LABS: BASOPHILS % (AUTO) 0.3 %; EOSINOPHILS % (AUTO) 0.4 %; HCT - HEMATOCRIT 31.1 % (37.0-47.0); LYMPHOCYTES # (AUTO) 0.8 10^3/uL (1.5-3.5); LYMPHOCYTES % (AUTO) 10.9 %; MEAN CORPUSCULAR HEMOGLOBIN 32.2 pg (27.0-31.0); MEAN CORPUSCULAR HGB CONC 35.4 g/dL (32.0-36.0); MEAN CORPUSCULAR VOLUME 90.9 fL (81.0-99.0); MEAN PLATELET VOLUME 10.2 fL (7.9-10.8); MONOCYTES # (AUTO) 0.6 10^3/uL (0.0-1.0); NEUTROPHILS # (AUTO) 5.7 10^3/uL (1.5-6.6); NEUTROPHILS % (AUTO) 78.7 %; PLT - PLATELET COUNT 123 10^3/uL (130-450); RED BLOOD COUNT 3.42 10^6/uL (4.20-5.40); RED CELL DISTRIBUTION WIDTH 13.4 % (12.0-15.0); WHITE BLOOD COUNT 7.3 x10^3/uL (4.8-10.8)
[2021-08-22 15:56] LABS: CALCIUM 8.7 mg/dL (8.5-10.3); CREATININE 0.5 mg/dL (0.4-1.0); POTASSIUM 3.7 mmol/L (3.5-5.0)
[2021-08-22] MEDS ORDERED: BUTALB/ACETAM/CAFF 50/325/40MG TABLET PO PRN (16:11)
[2021-08-22 16:13] LABS: ALBUMIN 3.2 g/dL (3.2-5.5); BILIRUBIN,DIRECT 0.1 mg/dL (0.1-0.5); BILIRUBIN,TOTAL 0.5 mg/dL (0.2-1.0); TOTAL PROTEIN 6.6 g/dL (6.7-8.2)
[2021-08-22 16:48] LABS: BILIRUBIN,URINE NEGATIVE (NEGATIVE); GLUCOSE, URINE (UA) NEGATIVE (NEGATIVE); KETONES,URINE (UA) 15 mg/dL (NEGATIVE); LEUKOCYTE ESTERASE, URINE NEGATIVE (NEGATIVE); NITRITE,URINE NEGATIVE (NEGATIVE); OCCULT BLOOD,URINE NEGATIVE (NEGATIVE); PROTEIN,URINE NEGATIVE (NEGATIVE); UROBILINOGEN,URINE 0.2 (NORMAL) E.U./dL (NORMAL)
[2021-08-22 16:56] LABS: BACTERIA,URINE Rare /HPF (None Seen); CLARITY,URINE CLEAR (CLEAR); RBC,URINE 0-5 /HPF (0-5); SQUAMOUS EPITHELIAL CELL,UR RARE Squamous (<= Few); WBC,URINE 0-3 /HPF (0-5)
[2021-08-22 17:03] LABS: CORONAVIRUS 229E-RESP PCR NOT DETECTED; CORONAVIRUS HKU1-RESP PCR NOT DETECTED; CORONAVIRUS NL63-RESP PCR NOT DETECTED; CORONAVIRUS OC43-RESP PCR NOT DETECTED
[2021-08-22 17:04] LABS: B. PARAPERTUSSIS- RESP PCR PAN NOT DETECTED; B. PERTUSSIS- RESP PCR PANEL NOT DETECTED; C. PNEUMONIAE- RESP PCR PANEL NOT DETECTED; HUMAN METAPNEUMOVIRUS NOT DETECTED; INFLUENZA A- RESP PCR PANEL NOT DETECTED; INFLUENZA B - RESP PCR PANEL NOT DETECTED; M. PNEUMONIAE- RESP PCR PANEL NOT DETECTED; PARAINFLUENZA VIRUS 1 NOT DETECTED; PARAINFLUENZA VIRUS 2 NOT DETECTED; PARAINFLUENZA VIRUS 3 NOT DETECTED; PARAINFLUENZA VIRUS 4 NOT DETECTED; RHINOVIRUS/ENTEROVIRUS NOT DETECTED; RSV- RESP PCR PANEL NOT DETECTED; SARS-CoV-2 -RESP PCR PANEL DETECTED
[2021-08-22] MEDS ORDERED: BEBTELOVIMAB 175 MG/2 ML VIAL IV ONE (19:00)
[2021-08-22 19:35] VITALS: BP 111/60
--- NOTE | 2021-08-22 20:13 | PROCEDURE REPORT ---
- HPI Diagnosis/Indication for NST: Decreased movement Vital Signs Temperature 99.6 F 08/22/21 14:38 Heart Rate 120 H 08/22/21 14:38 Respiratory Rate 20 08/22/21 14:38 Blood Pressure 116/63 08/22/21 14:38 Temperature 99 F 08/22/21 19:34 Heart Rate 112 H 08/22/21 19:34 Respiratory Rate 18 08/22/21 19:34 Blood Pressure 111/60 08/22/21 19:34 O2 Saturation 100 08/22/21 19:34 - Results and Plan Findings/Impression: heart rate baseline-140beats per minutes Moderate variability Accelerations 10x10 bpm Decelerations none Contractions rare NST reactive and reassuring
== END 2021-08-22 20:13 | disposition home or self-care (01) ==
LOC: WFO 14:25 → FBP 14:34 → WFO 20:13
PROVIDERS: ATTEND Obstetrics & Gynecology
DX: O36.8130 Decreased fetal movements, third trimester, not applicable or unspecified (principal); O98.513 Other viral diseases complicating pregnancy, third trimester; U07.1 COVID-19; R51.9 Headache, unspecified; O99.891 Other specified diseases and conditions complicating pregnancy; R07.9 Chest pain, unspecified; R00.0 Tachycardia, unspecified; O44.43 Low lying placenta NOS or without hemorrhage, third trimester; Z3A.29 29 weeks gestation of pregnancy
CPT/HCPCS: 80048; 80076; 81001; 84484; 85025; 87633; 93005; 96360; 96361; 99215; A9270; J7120; M0222; Q0222; 80053; 87086

== ENCOUNTER 2021-10-06 08:00 | Outpatient (CLI) | payer OTHER | END 2021-10-06 23:59 | disposition home or self-care (01) | LOC: LAB.WC 08:00 | PROVIDERS: ATTEND Obstetrics & Gynecology | DX: Z36.85 Encounter for antenatal screening for Streptococcus B (principal) | CPT/HCPCS: 87797 ==

== ENCOUNTER 2021-10-06 11:35 | Outpatient (CLI) | payer OTHER ==
[2021-10-06 11:47] LABS: BASOPHILS % (AUTO) 0.5 %; EOSINOPHILS # (AUTO) 0.1 10^3/uL (0.0-0.7); EOSINOPHILS % (AUTO) 1.7 %; HCT - HEMATOCRIT 36.6 % (37.0-47.0); HGB - HEMOGLOBIN 12.9 g/dL (12.0-16.0); LYMPHOCYTES # (AUTO) 1.9 10^3/uL (1.5-3.5); LYMPHOCYTES % (AUTO) 22.5 %; MEAN CORPUSCULAR HEMOGLOBIN 32.2 pg (27.0-31.0); MEAN CORPUSCULAR HGB CONC 35.2 g/dL (32.0-36.0); MEAN CORPUSCULAR VOLUME 91.3 fL (81.0-99.0); MEAN PLATELET VOLUME 10.2 fL (7.9-10.8); MONOCYTES # (AUTO) 0.6 10^3/uL (0.0-1.0); MONOCYTES % (AUTO) 6.9 %; NEUTROPHILS # (AUTO) 5.6 10^3/uL (1.5-6.6); NEUTROPHILS % (AUTO) 66.5 %; PLT - PLATELET COUNT 180 10^3/uL (130-450); RED BLOOD COUNT 4.01 10^6/uL (4.20-5.40); RED CELL DISTRIBUTION WIDTH 13.9 % (12.0-15.0); WHITE BLOOD COUNT 8.4 x10^3/uL (4.8-10.8)
== END 2021-10-06 11:36 | disposition home or self-care (01) ==
LOC: LAB 11:35
PROVIDERS: ATTEND Obstetrics & Gynecology
DX: O90.81 Anemia of the puerperium (principal); Z36.85 Encounter for antenatal screening for Streptococcus B
CPT/HCPCS: 36415; 82728; 85025; 87797

== ENCOUNTER 2021-12-18 21:08 | Emergency (ER) | payer OTHER ==
--- NOTE | 2021-12-18 22:07 | ED Physician Documentation ---
PD HPI MHE - Stated complaint Stated Complaint: PPD,MHE - Chief complaint Chief Complaint: MHE - History obtained from History obtained from: Patient - History of Present Illness Primary symptom: Suicidal ideation, Depression - Additional information Additional information: 31-year-old female with no reported past medical history presents for worsening depression and passive suicidal ideation without plan. Patient states that she gave 2 months ago and has had the "baby blues" ever since, however the last week has become progressively more severe. 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 Today she felt severe sadness and "I cannot be here anymore". She stated she was afraid to be left alone with her children despite talking with her [id number] on the phone. She called her neighbor to take care of her children and presented to the ER because she did not know what else to do. Review of Systems Ten Systems: 10 systems reviewed and negative Constitutional: denies: Fever, Chills GI: denies: Abdominal Pain, Nausea, Vomiting Neurologic: denies: Generalized weakness, Focal weakness, Numbness Psychiatric: reports: Depressed, Suicidal (passive, no plan), Anxiety. 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 : None HEENT: None Psych: None Musculoskeletal: None Derm: None - Past Surgical History Past Surgical History: Yes General: Cholecystectomy /CHANNEL CEMENTER INSOLE MACHINE: section - Present Medications Home Medications: Ambulatory Orders Medication Instructions Recorded Confirmed No Known Home Medications 12/18/21 12/18/21 - Allergies Allergies/Adverse Reactions: Allergies Allergy/AdvReac Type Severity Reaction Status Date / Time No Known Drug Allergies Allergy Verified 12/18/21 21:19 - Social History Does the pt smoke?: No Smoking Status: Never smoker Does the pt drink ETOH?: No Does the pt have substance abuse?: No - Immunizations Immunizations are current?: Yes - POLST Patient has POLST: No PD ED PE NORMAL - Vitals Vital signs reviewed: Yes - General General: Alert and oriented X 3, Well developed/nourished, Other (Tearful) - HEENT HEENT: Atraumatic, PERRL, EOMI - Cardiac Cardiac: RRR, No murmur, Strong equal pulses - Abdomen Abdomen: Soft, Non tender, Non distended - Derm Derm: Normal color, Warm and dry, No rash - Extremities Extremities: No deformity, No tenderness to palpate, Normal ROM s pain, No edema - Neuro Neuro: Alert and oriented X 3, 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, Normal speech - Psych Psych: Other (depressed mood, sad affect, tearful, endorsing depression) Results - Vitals Vitals: Vital Signs - 24 hr 12/18/21 12/18/21 12/18/21 21:15 21:19 22:28 Temperature 36.5 C 36.5 C Heart Rate 83 83 72 Respiratory 20 20 16 Rate Blood Pressure 145/105 H 145/105 H 113/65 O2 Saturation 100 100 99 12/19/21 12/19/21 12/19/21 00:28 01:43 02:57 Temperature 36.5 C Heart Rate 56 L 59 L Respiratory 15 14 15 Rate Blood Pressure 107/77 121/80 O2 Saturation 99 99 Oxygen O2 Source Room air - Labs Labs: Laboratory Tests 12/18/21 12/18/21 12/18/21 22:06 22:06 22:06 WBC 6.1 RBC 4.18 L Hgb 12.5 Hct 36.1 L MCV 86.4 MCH 29.9 MCHC 34.6 RDW 11.9 L Plt Count 219 MPV 9.0 Neut # (Auto) 2.8 Lymph # (Auto) 2.6 [place] # (Auto) 0.4 Eos # (Auto) 0.3 Baso # (Auto) 0.0 Absolute Nucleated RBC 0.00 Nucleated RBC % 0.0 Sodium 138 Potassium 3.9 Chloride 104 Carbon Dioxide 24 Anion Gap 10.0 BUN 19 Creatinine 0.8 Estimated GFR (MDRD) 85 L Glucose 100 Calcium 9.7 Total Bilirubin 0.8 AST 32 ALT 44 Alkaline Phosphatase 94 Total Protein 7.9 Albumin 4.8 Globulin 3.1 Albumin/Globulin Ratio 1.5 TSH 2.24 Urine HCG, Qual Urine Opiates Screen Ur Oxycodone Screen Urine Methadone Screen Ur Propoxyphene Screen Ur Barbiturates Screen Ur Tricyclics Screen Ur Phencyclidine Scrn Ur Amphetamine Screen U Methamphetamines Scrn U Benzodiazepines Scrn Urine Cocaine Screen U Cannabinoids Screen 12/18/21 22:19 WBC RBC Hgb Hct MCV MCH MCHC RDW Plt Count MPV Neut # (Auto) Lymph # (Auto) [place] # (Auto) Eos # (Auto) Baso # (Auto) Absolute Nucleated RBC Nucleated RBC % Sodium Potassium Chloride Carbon Dioxide Anion Gap BUN Creatinine Estimated GFR (MDRD) Glucose Calcium Total Bilirubin AST ALT Alkaline Phosphatase Total Protein Albumin Globulin Albumin/Globulin Ratio TSH Urine HCG, Qual NEGATIVE Urine Opiates Screen NEGATIVE Ur Oxycodone Screen NEGATIVE Urine Methadone Screen NEGATIVE Ur Propoxyphene Screen NEGATIVE Ur Barbiturates Screen NEGATIVE Ur Tricyclics Screen NEGATIVE Ur Phencyclidine Scrn NEGATIVE Ur Amphetamine Screen NEGATIVE U Methamphetamines Scrn NEGATIVE U Benzodiazepines Scrn NEGATIVE Urine Cocaine Screen NEGATIVE U Cannabinoids Screen NEGATIVE PD MEDICAL DECISION MAKING - ED course Complexity details: reviewed results, re-evaluated patient, considered differential, d/w patient ED course: Depression, worse today. Patient tearful and stating she doesn't know what else to do anymore. Initial BP elevated, however patient was crying and had just arrived in triage. When taken to ED bed repeat BP was within normal limits. Telepsych ordered. Delay in telepsych - told that "volumes are high and there is a shortage of physicians tonight". Patient resting comfortably in ED bed. Patient has been in ED for 6 hours. She states that she can't wait any longer because the woman watching her children needs to go home. She states she's feeling much better and does state that she has a support system in place at home to help her. She will contact her pcp first thing in the morning for an appointment. Departure - Departure Disposition: 01 Home, Self Care Clinical Impression: Depression Condition: Stable Instructions: ED Depression Comments: Please call your primary care doctor first thing in the morning for an appointment. Discharge Date/Time: 12/19/21 02:59
[2021-12-18 22:10] LABS: BASOPHILS % (AUTO) 0.7 %; EOSINOPHILS # (AUTO) 0.3 10^3/uL (0.0-0.7); EOSINOPHILS % (AUTO) 4.6 %; HCT - HEMATOCRIT 36.1 % (37.0-47.0); HGB - HEMOGLOBIN 12.5 g/dL (12.0-16.0); LYMPHOCYTES # (AUTO) 2.6 10^3/uL (1.5-3.5); LYMPHOCYTES % (AUTO) 41.8 %; MEAN CORPUSCULAR HEMOGLOBIN 29.9 pg (27.0-31.0); MEAN CORPUSCULAR HGB CONC 34.6 g/dL (32.0-36.0); MEAN CORPUSCULAR VOLUME 86.4 fL (81.0-99.0); MONOCYTES # (AUTO) 0.4 10^3/uL (0.0-1.0); MONOCYTES % (AUTO) 6.9 %; NEUTROPHILS # (AUTO) 2.8 10^3/uL (1.5-6.6); NEUTROPHILS % (AUTO) 45.7 %; PLT - PLATELET COUNT 219 10^3/uL (130-450); RED BLOOD COUNT 4.18 10^6/uL (4.20-5.40); RED CELL DISTRIBUTION WIDTH 11.9 % (12.0-15.0); WHITE BLOOD COUNT 6.1 x10^3/uL (4.8-10.8)
[2021-12-18 22:24] LABS: ALBUMIN 4.8 g/dL (3.2-5.5); ALBUMIN/GLOBULIN RATIO 1.5 (1.0-2.2); BILIRUBIN,TOTAL 0.8 mg/dL (0.2-1.0); CALCIUM 9.7 mg/dL (8.5-10.3); CREATININE 0.8 mg/dL (0.4-1.0); POTASSIUM 3.9 mmol/L (3.5-5.0); TOTAL PROTEIN 7.9 g/dL (6.7-8.2)
[2021-12-18 22:31] LABS: MUDS CUTOFF CONCENTRATIONS CUTOFF CONC BELOW:
[2021-12-18 22:36] LABS: HCG UR QUAL NEGATIVE
[2021-12-18 22:46] LABS: AMPHETAMINE SCREEN,URINE NEGATIVE (NEGATIVE); BARBITURATE SCREEN,UR NEGATIVE (NEGATIVE); BENZODIAZEPINES SCREEN, URINE NEGATIVE (NEGATIVE); COCAINE SCREEN URINE NEGATIVE (NEGATIVE); METHADONE SCREEN, URINE NEGATIVE (NEGATIVE); METHAMPHETAMINES SCREEN, URINE NEGATIVE (NEGATIVE); OPIATE SCREEN, URINE NEGATIVE (NEGATIVE); OXYCODONE SCREEN, URINE NEGATIVE (NEGATIVE); PROPOXYPHENE SCREEN, URINE NEGATIVE (NEGATIVE); THC CANNABINOID SCREEN, URINE NEGATIVE (NEGATIVE); TRICYCLIC ANTIDEPRESSANT,URINE NEGATIVE (NEGATIVE)
[2021-12-19 02:59] VITALS: BP 121/80
== END 2021-12-19 02:59 | disposition home or self-care (01) ==
LOC: ED 21:08
DX: F32.A Depression, unspecified (principal)
CPT/HCPCS: 36415; 80053; 80306; 81025; 84443; 85025; 99283

== ENCOUNTER 2022-01-16 18:24 | Emergency (ER) | payer OTHER ==
--- OUTSIDE RECORDS SUMMARY | 2022-01-16 18:32 | EXTERNAL MEDICAL SUMMARY RPT | Continuity of Care Document ---
:1990 Author Organization [place] Address [address] [place] [address] Phone Allergies and Intolerances date description facility type (no date) [facility] (unknown) Encounters No information. Functional Status No information. Immunizations No information. Medications No information. Problems No information. Procedures No information. Results/Labs test date author facility value unit interpret ation Result panel 1 (unknown) (no date) (unknown) (unknown) < 1.0 mg/dl (unkn own) (unknown) (no date) (unknown) (unknown) < 1.0 mg/dl (unkn own) (unknown) (no date) (unknown) (unknown) < 10 mg/dl (unkn own) (unknown) (no date) (unknown) (unknown) < 10 mg/dl (unkn own) (unknown) (no date) (unknown) (unknown) < 10 ug/ml (unkn own) (unknown) (no date) (unknown) (unknown) < 10 ug/ml (unkn own) (unknown) (no date) (unknown) (unknown) 1.1 % (unkn own) (unknown) (no date) (unknown) (unknown) 100 /ul (unkn own) (unknown) (no date) (unknown) (unknown) 12.6 g/dl (unkn own) (unknown) (no date) (unknown) (unknown) 13.2 % (unkn own) (unknown) (no date) (unknown) (unknown) 200 /ul (unkn own) (unknown) (no date) (unknown) (unknown) 2400 /ul (unkn own) (unknown) (no date) (unknown) (unknown) 264 x10 3/ul (unkn own) (unknown) (no date) (unknown) (unknown) 3.0 % (unkn own) (unknown) (no date) (unknown) (unknown) 30.2 pg (unkn own) (unknown) (no date) (unknown) (unknown) 3300 /ul (unkn own) (unknown) (no date) (unknown) (unknown) 35.4 % (unkn own) (unknown) (no date) (unknown) (unknown) 35.6 % (unkn own) (unknown) (no date) (unknown) (unknown) 37.0 % (unkn own) (unknown) (no date) (unknown) (unknown) 4.17 x10 6/ul (unkn own) (unknown) (no date) (unknown) (unknown) 400 /ul (unkn own) (unknown) (no date) (unknown) (unknown) 52.1 % (unkn own) (unknown) (no date) (unknown) (unknown) 6.4 x10 3/ul (unkn own) (unknown) (no date) (unknown) (unknown) 6.8 % (unkn own) (unknown) (no date) (unknown) (unknown) 85.3 fl (unkn own) Result panel 2 (unknown) (no date) (unknown) (unknown) > 60 ml/min (unkn own) (unknown) (no date) (unknown) (unknown) > 60 ml/min (unkn own) (unknown) (no date) (unknown) (unknown) < 1.0 mg/dl (unkn own) (unknown) (no date) (unknown) (unknown) < 1.0 mg/dl (unkn own) (unknown) (no date) (unknown) (unknown) < 10 mg/dl (unkn own) (unknown) (no date) (unknown) (unknown) < 10 mg/dl (unkn own) (unknown) (no date) (unknown) (unknown) < 10 ug/ml (unkn own) (unknown) (no date) (unknown) (unknown) < 10 ug/ml (unkn own) (unknown) (no date) (unknown) (unknown) 0.6 mg/dl (unkn own) (unknown) (no date) (unknown) (unknown) 0.67 mg/dl (unkn own) (unknown) (no date) (unknown) (unknown) 1.4 (units unknown) (unknown) (unknown) (no date) (unknown) (unknown) 104 mmol/l (unkn own) (unknown) (no date) (unknown) (unknown) 11 mg/dl (unkn own) (unknown) (no date) (unknown) (unknown) 110 u/l (unkn own) (unknown) (no date) (unknown) (unknown) 111 mg/dl (unkn own) (unknown) (no date) (unknown) (unknown) 111 mg/dl (unkn own) (unknown) (no date) (unknown) (unknown) 138 mmol/l (unkn own) (unknown) (no date) (unknown) (unknown) 16.4 (units unknown) (unknown) (unknown) (no date) (unknown) (unknown) 22 mmol/l (unkn own) (unknown) (no date) (unknown) (unknown) 3.5 g/dl (unkn own) (unknown) (no date) (unknown) (unknown) 3.7 mmol/l (unkn own) (unknown) (no date) (unknown) (unknown) 36 iu/l (unkn own) (unknown) (no date) (unknown) (unknown) 4.8 g/dl (unkn own) (unknown) (no date) (unknown) (unknown) 48 iu/l (unkn own) (unknown) (no date) (unknown) (unknown) 8.3 g/dl (unkn own) (unknown) (no date) (unknown) (unknown) 9.4 mg/dl (unkn own) Result panel 3 (unknown) (no date) (unknown) (unknown) 1.26 ng/dl (unkn own) Result panel 4 (unknown) (no date) (unknown) (unknown) 1.025 (units (unkn own) unknown) (unknown) (no date) (unknown) (unknown) 5 (units (unkn own) unknown) (unknown) (no date) (unknown) (unknown) 50 (units (unkn own) unknown) (unknown) (no date) (unknown) (unknown) 50 (units (unkn own) unknown) (unknown) (no date) (unknown) (unknown) Negative (units (unkn own) unknown) Result panel 5 (unknown) (no date) (unknown) (unknown) 1.23 uiu/ml (unkn own) (unknown) (no date) (unknown) (unknown) 1.26 ng/dl (unkn own) Result panel 6 (unknown) (no (unknown) (unknown) (no value) (units (unk nown) date) unknown) (unknown) (no (unknown) (unknown) [id number] (units (unkn own) date) unknown) (unknown) (no (unknown) (unknown) 12/19/21 12/19/21 (units (unknown) date) 12/19/21 unknown) Range/Units (unknown) (no (unknown) (unknown) 12/19/21 21:44 (units (unknown) date) unknown) (unknown) (no (unknown) (unknown) 12/19/21 22:35 (units (unknown) date) unknown) (unknown) (no (unknown) (unknown) 12/19/21 (units (unkno wn) date) Range/Units unknown) (unknown) (no (unknown) (unknown) 21:44 21:44 21:44 (units (unknown) date) unknown) (unknown) (no (unknown) (unknown) 22:35 (units (unkno wn) date) unknown) (unknown) (no (unknown) (unknown) 8 point review of (units (unknown) date) systems is negative unknown) except for those stated above and HPI (unknown) (no (unknown) (unknown) ALT (<35) IU/L (units (unknown) date) unknown) (unknown) (no (unknown) (unknown) ALT 48 H (<35) (units (unknown) date) IU/L unknown) (unknown) (no (unknown) (unknown) AST (14-36) IU/L (units (unknown) date) unknown) (unknown) (no (unknown) (unknown) AST 36 (14-36) (units (unknown) date) IU/L unknown) (unknown) (no (unknown) (unknown) Acetaminophen < 10 (units (unknown) date) (10-30) ug/mL unknown) (unknown) (no (unknown) (unknown) Acetaminophen (units ( unknown) date) (10-30) ug/mL unknown) (unknown) (no (unknown) (unknown) Acetaminophen Stat (units (unknown) date) unknown) (unknown) (no (unknown) (unknown) Age/Sex: 31 / F (units (unknown) date) unknown) (unknown) (no (unknown) (unknown) Albumin (3.5-5.0) (units (unknown) date) g/dL unknown) (unknown) (no (unknown) (unknown) Albumin 4.8 (units (un known) date) (3.5-5.0) g/dL unknown) (unknown) (no (unknown) (unknown) Albumin/Globulin (units (unknown) date) Ratio (1.0-2.8) unknown) (unknown) (no (unknown) (unknown) Albumin/Globulin (units (unknown) date) Ratio 1.4 (1.0-2.8) unknown) (unknown) (no (unknown) (unknown) Alkaline (units (unkno wn) date) Phosphatase unknown) (38-126) U/L (unknown) (no (unknown) (unknown) Alkaline (units (unkno wn) date) Phosphatase 110 unknown) (38-126) U/L (unknown) (no (unknown) (unknown) Allergies (units (unkn own) date) unknown) (unknown) (no (unknown) (unknown) Allergy/AdvReac (units (unknown) date) Type Severity unknown) Reaction Status Date / Time (unknown) (no (unknown) (unknown) BUN (7-17) mg/dL (units (unknown) date) unknown) (unknown) (no (unknown) (unknown) BUN 11 (7-17) (units ( unknown) date) mg/dL unknown) (unknown) (no (unknown) (unknown) BUN/Creatinine (units (unknown) date) Ratio (6-22) unknown) (unknown) (no (unknown) (unknown) BUN/Creatinine (units (unknown) date) Ratio 16.4 (6-22) unknown) (unknown) (no (unknown) (unknown) Baso # (Auto) (units ( unknown) date) (0-100) /uL unknown) (unknown) (no (unknown) (unknown) Baso # (Auto) 100 (units (unknown) date) (0-100) /uL unknown) (unknown) (no (unknown) (unknown) Baso % (Auto) (units ( unknown) date) (0-2) % unknown) (unknown) (no (unknown) (unknown) Baso % (Auto) 1.1 (units (unknown) date) (0-2) % unknown) (unknown) (no (unknown) (unknown) Bedside Urine (units ( unknown) date) Bilirubin - unknown) Negative (unknown) (no (unknown) (unknown) Bedside Urine (units ( unknown) date) Glucose Negative unknown) (unknown) (no (unknown) (unknown) Bedside Urine (units ( unknown) date) Ketone - Negative unknown) (unknown) (no (unknown) (unknown) Bedside Urine (units ( unknown) date) Leukocytes - unknown) Negative (unknown) (no (unknown) (unknown) Bedside Urine (units ( unknown) date) Nitrite - Negative unknown) (unknown) (no (unknown) (unknown) Bedside Urine (units ( unknown) date) Occult Blood - unknown) Negative (unknown) (no (unknown) (unknown) Bedside Urine (units ( unknown) date) Protein - Negative unknown) (unknown) (no (unknown) (unknown) Bedside Urine (units ( unknown) date) Urobilinogen - unknown) Negative (unknown) (no (unknown) (unknown) Blood Pressure (units (unknown) date) 137/88 12/19/21 unknown) 21:00 (unknown) (no (unknown) (unknown) CARDIOVASCULAR: (units (unknown) date) Denies chest pain, unknown) palpitations (unknown) (no (unknown) (unknown) CARDIOVASCULAR: (units (unknown) date) peripheral pulses unknown) in tact, cap refill <2 sec (unknown) (no (unknown) (unknown) Calcium (8.4-10.2) (units (unknown) date) mg/dL unknown) (unknown) (no (unknown) (unknown) Calcium 9.4 (units (un known) date) (8.4-10.2) mg/dL unknown) (unknown) (no (unknown) (unknown) Carbon Dioxide (units (unknown) date) (22-32) mmol/L unknown) (unknown) (no (unknown) (unknown) Carbon Dioxide 22 (units (unknown) date) (22-32) mmol/L unknown) (unknown) (no (unknown) (unknown) Chief Complaint: (units (unknown) date) Psychiatric unknown) Symptoms (unknown) (no (unknown) (unknown) Chloride (98-107) (units (unknown) date) mmol/L unknown) (unknown) (no (unknown) (unknown) Chloride 104 (units (u nknown) date) (98-107) mmol/L unknown) (unknown) (no (unknown) (unknown) Complete Blood (units (unknown) date) Count AUTO DIFF unknown) Stat (unknown) (no (unknown) (unknown) Comprehensive (units ( unknown) date) Metabolic Panel unknown) Stat (unknown) (no (unknown) (unknown) Course (units (unkno wn) date) unknown) (unknown) (no (unknown) (unknown) Creatinine (units (unk nown) date) (0.52-1.04) mg/dL unknown) (unknown) (no (unknown) (unknown) Creatinine 0.67 (units (unknown) date) (0.52-1.04) mg/dL unknown) (unknown) (no (unknown) (unknown) : 1990 (units (unknown) date) Acct:[id number] unknown) (unknown) (no (unknown) (unknown) Date of Service: (units (unknown) date) 12/19/21 unknown) (unknown) (no (unknown) (unknown) Departure (units (unkn own) date) unknown) (unknown) (no (unknown) (unknown) Discharge Plan (units (unknown) date) unknown) (unknown) (no (unknown) (unknown) ED Orders (units (unkn own) date) unknown) (unknown) (no (unknown) (unknown) ER Physician: (units ( unknown) date) Ioana Hendrickson D.O. unknown) (unknown) (no (unknown) (unknown) EXTREMITIES: (units (u nknown) date) Normal range of unknown) motion, no clubbing or edema. Neurovascularly (unknown) (no (unknown) (unknown) Emergency Report (units (unknown) date) unknown) (unknown) (no (unknown) (unknown) Eos # (Auto) (units (u nknown) date) (0-450) /uL unknown) (unknown) (no (unknown) (unknown) Eos # (Auto) 200 (units (unknown) date) (0-450) /uL unknown) (unknown) (no (unknown) (unknown) Eos % (Auto) (2-4) (units (unknown) date) % unknown) (unknown) (no (unknown) (unknown) Eos % (Auto) 3.0 (units (unknown) date) (2-4) % unknown) (unknown) (no (unknown) (unknown) Esterase (units (unkno wn) date) unknown) (unknown) (no (unknown) (unknown) Estimated GFR > 60 (units (unknown) date) (>60) mL/min unknown) (unknown) (no (unknown) (unknown) Estimated GFR (units ( unknown) date) (>60) mL/min unknown) (unknown) (no (unknown) (unknown) Ethanol (ETOH) (units (unknown) date) Stat unknown) (unknown) (no (unknown) (unknown) Ethyl Alcohol < 10 (units (unknown) date) ( - 10) mg/dL unknown) (unknown) (no (unknown) (unknown) Ethyl Alcohol ( - (units (unknown) date) 10) mg/dL unknown) (unknown) (no (unknown) (unknown) Exam (units (unkno wn) date) unknown) (unknown) (no (unknown) (unknown) Free T4 (units (unkno wn) date) (0.78-2.19) ng/dL unknown) (unknown) (no (unknown) (unknown) Free T4 1.26 (units (u nknown) date) (0.78-2.19) ng/dL unknown) (unknown) (no (unknown) (unknown) Free T4, Direct (units (unknown) date) Thyroxine Stat unknown) (unknown) (no (unknown) (unknown) GASTROINTESTINAL: (units (unknown) date) Denies nausea, unknown) vomiting (unknown) (no (unknown) (unknown) GENERAL: Denies (units (unknown) date) chills,fever unknown) (unknown) (no (unknown) (unknown) GENERAL: Tearful (units (unknown) date) 31-year-old female unknown) (unknown) (no (unknown) (unknown) General (units (unkno wn) date) unknown) (unknown) (no (unknown) (unknown) Globulin (1.7-4.1) (units (unknown) date) g/dL unknown) (unknown) (no (unknown) (unknown) Globulin 3.5 (units (u nknown) date) (1.7-4.1) g/dL unknown) (unknown) (no (unknown) (unknown) Glucose (70-100) (units (unknown) date) mg/dL unknown) (unknown) (no (unknown) (unknown) Glucose 111 H (units ( unknown) date) (70-100) mg/dL unknown) (unknown) (no (unknown) (unknown) HEENT: Denies (units ( unknown) date) throat pain unknown) (unknown) (no (unknown) (unknown) HPI - Psych (units (un known) date) unknown) (unknown) (no (unknown) (unknown) HPI Narrative: (units (unknown) date) unknown) (unknown) (no (unknown) (unknown) Hct (36-46) % (units ( unknown) date) unknown) (unknown) (no (unknown) (unknown) Hct 35.6 L (36-46) (units (unknown) date) % unknown) (unknown) (no (unknown) (unknown) Hgb (12.0-16.0) (units (unknown) date) g/dL unknown) (unknown) (no (unknown) (unknown) Hgb 12.6 (units (unkno wn) date) (12.0-16.0) g/dL unknown) (unknown) (no (unknown) (unknown) History of Present (units (unknown) date) Illness unknown) (unknown) (no (unknown) (unknown) Initial Vital (units ( unknown) date) Signs unknown) (unknown) (no (unknown) (unknown) Initial Vital (units ( unknown) date) Signs: unknown) (unknown) (no (unknown) (unknown) [facility] (units (unknown) date) [address] unknown) [place] [address] (unknown) (no (unknown) (unknown) Lab Data (units (unkno wn) date) unknown) (unknown) (no (unknown) (unknown) Lab Results (units (un known) date) unknown) (unknown) (no (unknown) (unknown) Labs: (units (unkno wn) date) unknown) (unknown) (no (unknown) (unknown) Lymph # (Auto) (units (unknown) date) (5951-6689) /uL unknown) (unknown) (no (unknown) (unknown) Lymph # (Auto) (units (unknown) date) 2400 ([id number]) unknown) /uL (unknown) (no (unknown) (unknown) Lymph % (Auto) (units (unknown) date) (25-40) % unknown) (unknown) (no (unknown) (unknown) Lymph % (Auto) (units (unknown) date) 37.0 (25-40) % unknown) (unknown) (no (unknown) (unknown) MCH (26-34) PG (units (unknown) date) unknown) (unknown) (no (unknown) (unknown) MCH 30.2 (26-34) (units (unknown) date) PG unknown) (unknown) (no (unknown) (unknown) MCHC (30-36) % (units (unknown) date) unknown) (unknown) (no (unknown) (unknown) MCHC 35.4 (30-36) (units (unknown) date) % unknown) (unknown) (no (unknown) (unknown) MCV (80-100) fL (units (unknown) date) unknown) (unknown) (no (unknown) (unknown) MCV 85.3 (80-100) (units (unknown) date) fL unknown) (unknown) (no (unknown) (unknown) MDM - Psych (units (un known) date) unknown) (unknown) (no (unknown) (unknown) MDM Narrative (units ( unknown) date) unknown) (unknown) (no (unknown) (unknown) MUSCULOSKELETAL: (units (unknown) date) Denies extremity unknown) pain, injury (unknown) (no (unknown) (unknown) Medical decision (units (unknown) date) making narrative: unknown) (unknown) (no (unknown) (unknown) Mode of arrival: (units (unknown) date) Ambulatory unknown) (unknown) (no (unknown) (unknown) [place] # (Auto) (units ( unknown) date) (0-900) /uL unknown) (unknown) (no (unknown) (unknown) [place] # (Auto) 400 (units (unknown) date) (0-900) /uL unknown) (unknown) (no (unknown) (unknown) [place] % (Auto) (units ( unknown) date) (3-14) % unknown) (unknown) (no (unknown) (unknown) [place] % (Auto) 6.8 (units (unknown) date) (3-14) % unknown) (unknown) (no (unknown) (unknown) NEUROLOGIC: Denies (units (unknown) date) weakness, unknown) dizziness, headache, numbness (unknown) (no (unknown) (unknown) NEUROLOGICAL: (units ( unknown) date) Cranial nerves II unknown) through XII grossly intact. Normal gait and (unknown) (no (unknown) (unknown) Narrative: (units (unk nown) date) unknown) (unknown) (no (unknown) (unknown) Neut # (Auto) (units ( unknown) date) (7859-4633) /uL unknown) (unknown) (no (unknown) (unknown) Neut # (Auto) 3300 (units (unknown) date) (3045-5797) /uL unknown) (unknown) (no (unknown) (unknown) Neut % (Auto) (units ( unknown) date) (50-75) % unknown) (unknown) (no (unknown) (unknown) Neut % (Auto) 52.1 (units (unknown) date) (50-75) % unknown) (unknown) (no (unknown) (unknown) Ordered: (units (unkno wn) date) unknown) (unknown) (no (unknown) (unknown) Orders (units (unkno wn) date) unknown) (unknown) (no (unknown) (unknown) Oxygen Delivery (units (unknown) date) Method 12/19/21 unknown) 21:00 (unknown) (no (unknown) (unknown) Patient History (units (unknown) date) unknown) (unknown) (no (unknown) (unknown) Patient currently (units (unknown) date) is voluntary. To unknown) [facility] evaluation with (unknown) (no (unknown) (unknown) Patient is a (units (un known) date) healthy 31-year-old unknown) female within infant 2-month-old and (unknown) (no (unknown) (unknown) Patient signed out (units (unknown) date) to Dr. Ramos for unknown) further evaluation management and disposition (unknown) (no (unknown) (unknown) Patient: (units (unkno wn) date) Jaelyn Clayton unknown) MR#: M (unknown) (no (unknown) (unknown) Plt Count (units (unkn own) date) (150-400) X103/uL unknown) (unknown) (no (unknown) (unknown) Plt Count 264 (units ( unknown) date) (150-400) X103/uL unknown) (unknown) (no (unknown) (unknown) Point of Care (units ( unknown) date) Testing unknown) (unknown) (no (unknown) (unknown) Potassium (units (unkn own) date) (3.4-5.1) mmol/L unknown) (unknown) (no (unknown) (unknown) Potassium 3.7 (units ( unknown) date) (3.4-5.1) mmol/L unknown) (unknown) (no (unknown) (unknown) Test (units (unknown) date) Results Negative unknown) (unknown) (no (unknown) (unknown) Provider,Mee (units (unknown) date) REYNALDO [Primary Care unknown) Provider] (unknown) (no (unknown) (unknown) Psychiatric (units (un known) date) unknown) (unknown) (no (unknown) (unknown) Psychiatric: (units (u nknown) date) Reports system unknown) reviewed and no additional complaints, except as (unknown) (no (unknown) (unknown) Pulse Oximetry 97 (units (unknown) date) 12/19/21 21:00 unknown) (unknown) (no (unknown) (unknown) Pulse Rate 81 (units ( unknown) date) 12/19/21 21:00 unknown) (unknown) (no (unknown) (unknown) RBC (4.0-5.2) (units ( unknown) date) X106/uL unknown) (unknown) (no (unknown) (unknown) RBC 4.17 (4.0-5.2) (units (unknown) date) X106/uL unknown) (unknown) (no (unknown) (unknown) RDW (11.6-14.8) % (units (unknown) date) unknown) (unknown) (no (unknown) (unknown) RDW 13.2 (units (unkno wn) date) (11.6-14.8) % unknown) (unknown) (no (unknown) (unknown) RESPIRATORY: (units (u nknown) date) Denies dyspnea, unknown) cough, wheezing (unknown) (no (unknown) (unknown) RESPIRATORY: No (units (unknown) date) respiratory unknown) distress, speaks in full sentences without (unknown) (no (unknown) (unknown) Referrals: (units (unk nown) date) unknown) (unknown) (no (unknown) (unknown) Related Data (units (u nknown) date) unknown) (unknown) (no (unknown) (unknown) Respiratory Rate (units (unknown) date) 22 12/19/21 21:00 unknown) (unknown) (no (unknown) (unknown) Result diagrams: (units (unknown) date) unknown) (unknown) (no (unknown) (unknown) Review of Systems (units (unknown) date) unknown) (unknown) (no (unknown) (unknown) SKIN: No rash, no (units (unknown) date) laceration, no unknown) pruritus (unknown) (no (unknown) (unknown) SKIN: Warm, dry, (units (unknown) date) no petechiae, no unknown) rashes or lesions. (unknown) (no (unknown) (unknown) Salicylate Stat (units (unknown) date) unknown) (unknown) (no (unknown) (unknown) Salicylates < 1.0 (units (unknown) date) (<20) mg/dL unknown) (unknown) (no (unknown) (unknown) Salicylates (<20) (units (unknown) date) mg/dL unknown) (unknown) (no (unknown) (unknown) Signed By: (units (unk nown) date) unknown) (unknown) (no (unknown) (unknown) Smoking Status: (units (unknown) date) Never smoker unknown) (unknown) (no (unknown) (unknown) Social History (units (unknown) date) (Reviewed 12/20/21 unknown) @ 06:36 by Ioana Hendrickson DO) (unknown) (no (unknown) (unknown) Sodium (137-145) (units (unknown) date) mmol/L unknown) (unknown) (no (unknown) (unknown) Sodium 138 (units (unk nown) date) (137-145) mmol/L unknown) (unknown) (no (unknown) (unknown) Source: patient (units (unknown) date) unknown) (unknown) (no (unknown) (unknown) Stated Complaint: (units (unknown) date) Needs to be seen, unknown) sent by [employer] (unknown) (no (unknown) (unknown) TSH (0.47-4.68) (units (unknown) date) uIU/mL unknown) (unknown) (no (unknown) (unknown) TSH 1.23 (units (unkno wn) date) (0.47-4.68) uIU/mL unknown) (unknown) (no (unknown) (unknown) Temperature 97.8 F (units (unknown) date) 12/19/21 21:00 unknown) (unknown) (no (unknown) (unknown) Thyroid (units (unkno wn) date) Stimulating Hormone unknown) Stat (unknown) (no (unknown) (unknown) Time Seen by (units (u nknown) date) Provider: 12/20/21 unknown) 06:22 (unknown) (no (unknown) (unknown) Total Bilirubin (units (unknown) date) (0.2-1.3) mg/dL unknown) (unknown) (no (unknown) (unknown) Total Bilirubin (units (unknown) date) 0.6 (0.2-1.3) mg/dL unknown) (unknown) (no (unknown) (unknown) Total Protein (units ( unknown) date) (6.3-8.2) g/dL unknown) (unknown) (no (unknown) (unknown) Total Protein 8.3 (units (unknown) date) H (6.3-8.2) g/dL unknown) (unknown) (no (unknown) (unknown) U Benzodiazepines (units (unknown) date) Scrn (Negative) unknown) (unknown) (no (unknown) (unknown) U Benzodiazepines (units (unknown) date) Scrn Negative unknown) (Negative) (unknown) (no (unknown) (unknown) U Marijuana (THC) (units (unknown) date) Screen (Negative) unknown) (unknown) (no (unknown) (unknown) U Marijuana (THC) (units (unknown) date) Screen Negative unknown) (Negative) (unknown) (no (unknown) (unknown) U Methamphetamines (units (unknown) date) Scrn (Negative) unknown) (unknown) (no (unknown) (unknown) U Methamphetamines (units (unknown) date) Scrn Negative unknown) (Negative) (unknown) (no (unknown) (unknown) U Opiates 300ng/mL (units (unknown) date) cut (Negative) unknown) (unknown) (no (unknown) (unknown) U Opiates 300ng/mL (units (unknown) date) cut Negative unknown) (Negative) (unknown) (no (unknown) (unknown) U Tricyclic (units (un known) date) Antidepress unknown) (Negative) (unknown) (no (unknown) (unknown) U Tricyclic (units (un known) date) Antidepress unknown) Negative (Negative) (unknown) (no (unknown) (unknown) Ur Amphetamines (units (unknown) date) Screen (Negative) unknown) (unknown) (no (unknown) (unknown) Ur Amphetamines (units (unknown) date) Screen Negative unknown) (Negative) (unknown) (no (unknown) (unknown) Ur Barbiturates (units (unknown) date) Screen (Negative) unknown) (unknown) (no (unknown) (unknown) Ur Barbiturates (units (unknown) date) Screen Negative unknown) (Negative) (unknown) (no (unknown) (unknown) Ur MDMA Scrn (units (u nknown) date) (Ecstasy) unknown) (Negative) (unknown) (no (unknown) (unknown) Ur MDMA Scrn (units (u nknown) date) (Ecstasy) Negative unknown) (Negative) (unknown) (no (unknown) (unknown) Ur Oxycodone (units (u nknown) date) Screen (Negative) unknown) (unknown) (no (unknown) (unknown) Ur Oxycodone (units (u nknown) date) Screen Negative unknown) (Negative) (unknown) (no (unknown) (unknown) Ur Phencyclidine (units (unknown) date) Scrn (Negative) unknown) (unknown) (no (unknown) (unknown) Ur Phencyclidine (units (unknown) date) Scrn Negative unknown) (Negative) (unknown) (no (unknown) (unknown) Urine Cocaine (units ( unknown) date) Screen (Negative) unknown) (unknown) (no (unknown) (unknown) Urine Cocaine (units ( unknown) date) Screen Negative unknown) (Negative) (unknown) (no (unknown) (unknown) Urine Dip (units (unkn own) date) unknown) (unknown) (no (unknown) (unknown) Urine Drug Screen, (units (unknown) date) Rapid Stat unknown) (unknown) (no (unknown) (unknown) Urine Methadone (units (unknown) date) Screen (Negative) unknown) (unknown) (no (unknown) (unknown) Urine Methadone (units (unknown) date) Screen Negative unknown) (Negative) (unknown) (no (unknown) (unknown) Vital Signs (units (un known) date) unknown) (unknown) (no (unknown) (unknown) WBC (4.5-11.0) (units (unknown) date) X103/uL unknown) (unknown) (no (unknown) (unknown) WBC 6.4 (4.5-11.0) (units (unknown) date) X103/uL unknown) (unknown) (no (unknown) (unknown) [Embedded Image (units (unknown) date) Not Available] unknown) (unknown) (no (unknown) (unknown) a 5-year-old (units (u nknown) date) presenting today unknown) with suicidal ideations. States that she has (unknown) (no (unknown) (unknown) alcohol intake (units (unknown) date) frequency: 0-2 unknown) drinks per day (unknown) (no (unknown) (unknown) are multiple guns (units (unknown) date) at home. She does unknown) not want to hurt her children however he (unknown) (no (unknown) (unknown) difficulty (units (unk nown) date) unknown) (unknown) (no (unknown) (unknown) documented, Denies (units (unknown) date) homicidal ideation unknown) and Reports suicidal ideation (unknown) (no (unknown) (unknown) feelings got even (units (unknown) date) worse. She says she unknown) does not trust herself at home. There (unknown) (no (unknown) (unknown) gluten Allergy (units (unknown) date) Intermediate Hives unknown) Verified 12/20/21 06:35 (unknown) (no (unknown) (unknown) intact (units (unkno wn) date) unknown) (unknown) (no (unknown) (unknown) just feels like (units (unknown) date) she does not want unknown) to live. She does not want to feel this way (unknown) (no (unknown) (unknown) probable (units (unkno wn) date) placement. Patient unknown) does have [id number] here now for temporary help (unknown) (no (unknown) (unknown) she does not know (units (unknown) date) why she is feeling unknown) this way. She does not trust herself. (unknown) (no (unknown) (unknown) speech. (units (unkno wn) date) unknown) (unknown) (no (unknown) (unknown) started feeling (units (unknown) date) this way for a unknown) couple of weeks. Stating that she just does not (unknown) (no (unknown) (unknown) want to live. Her (units (unknown) date) deployed unknown) last week [place] ([place]) (no (unknown) (unknown) with children. She (units (unknown) date) does have a couple unknown) with friends. 1 is here now. Result panel 7 (unknown) (no date) (unknown) (unknown) Negative (units (unkn own) unknown) (unknown) (no date) (unknown) (unknown) Negative (units (unkn own) unknown) Result panel 8 (unknown) (no (unknown) (unknown) (no value) (units (unk nown) date) unknown) (unknown) (no (unknown) (unknown) [id number] (units (unkn own) date) unknown) (unknown) (no (unknown) (unknown) 07:01 12/20/21 (units (unknown) date) unknown) (unknown) (no (unknown) (unknown) 12/19/21 12/19/21 (units (unknown) date) 12/19/21 unknown) Range/Units (unknown) (no (unknown) (unknown) 12/19/21 12/20/21 (units (unknown) date) Range/Units unknown) (unknown) (no (unknown) (unknown) 12/19/21 21:44 (units (unknown) date) unknown) (unknown) (no (unknown) (unknown) 12/20/21 12:23 (units (unknown) date) unknown) (unknown) (no (unknown) (unknown) 12/20/21 (units (unkno wn) date) unknown) (unknown) (no (unknown) (unknown) 13:00 (units (unkno wn) date) unknown) (unknown) (no (unknown) (unknown) 21:44 21:44 21:44 (units (unknown) date) unknown) (unknown) (no (unknown) (unknown) 22:35 12:23 (units (un known) date) unknown) (unknown) (no (unknown) (unknown) 8 point review of (units (unknown) date) systems is negative unknown) except for those stated above and HPI (unknown) (no (unknown) (unknown) ALT (<35) IU/L (units (unknown) date) unknown) (unknown) (no (unknown) (unknown) ALT 48 H (<35) (units (unknown) date) IU/L unknown) (unknown) (no (unknown) (unknown) AST (14-36) IU/L (units (unknown) date) unknown) (unknown) (no (unknown) (unknown) AST 36 (14-36) (units (unknown) date) IU/L unknown) (unknown) (no (unknown) (unknown) Acetaminophen < 10 (units (unknown) date) (10-30) ug/mL unknown) (unknown) (no (unknown) (unknown) Acetaminophen (units ( unknown) date) (10-30) ug/mL unknown) (unknown) (no (unknown) (unknown) Acetaminophen (units ( unknown) date) (Acetaminophen 325 unknown) Mg Tablet) 650 mg PO NOW ONE (unknown) (no (unknown) (unknown) Age/Sex: 31 / F (units (unknown) date) unknown) (unknown) (no (unknown) (unknown) Albumin (3.5-5.0) (units (unknown) date) g/dL unknown) (unknown) (no (unknown) (unknown) Albumin 4.8 (units (un known) date) (3.5-5.0) g/dL unknown) (unknown) (no (unknown) (unknown) Albumin/Globulin (units (unknown) date) Ratio (1.0-2.8) unknown) (unknown) (no (unknown) (unknown) Albumin/Globulin (units (unknown) date) Ratio 1.4 (1.0-2.8) unknown) (unknown) (no (unknown) (unknown) Alkaline (units (unkno wn) date) Phosphatase unknown) (38-126) U/L (unknown) (no (unknown) (unknown) Alkaline (units (unkno wn) date) Phosphatase 110 unknown) (38-126) U/L (unknown) (no (unknown) (unknown) Allergies (units (unkn own) date) unknown) (unknown) (no (unknown) (unknown) Allergy/AdvReac (units (unknown) date) Type Severity unknown) Reaction Status Date / Time (unknown) (no (unknown) (unknown) BUN (7-17) mg/dL (units (unknown) date) unknown) (unknown) (no (unknown) (unknown) BUN 11 (7-17) (units ( unknown) date) mg/dL unknown) (unknown) (no (unknown) (unknown) BUN/Creatinine (units (unknown) date) Ratio (6-22) unknown) (unknown) (no (unknown) (unknown) BUN/Creatinine (units (unknown) date) Ratio 16.4 (6-22) unknown) (unknown) (no (unknown) (unknown) Baso # (Auto) (units ( unknown) date) (0-100) /uL unknown) (unknown) (no (unknown) (unknown) Baso # (Auto) 100 (units (unknown) date) (0-100) /uL unknown) (unknown) (no (unknown) (unknown) Baso % (Auto) (units ( unknown) date) (0-2) % unknown) (unknown) (no (unknown) (unknown) Baso % (Auto) 1.1 (units (unknown) date) (0-2) % unknown) (unknown) (no (unknown) (unknown) Bedside Urine (units ( unknown) date) Bilirubin - unknown) Negative (unknown) (no (unknown) (unknown) Bedside Urine (units ( unknown) date) Glucose Negative unknown) (unknown) (no (unknown) (unknown) Bedside Urine (units ( unknown) date) Ketone - Negative unknown) (unknown) (no (unknown) (unknown) Bedside Urine (units ( unknown) date) Leukocytes - unknown) Negative (unknown) (no (unknown) (unknown) Bedside Urine (units ( unknown) date) Nitrite - Negative unknown) (unknown) (no (unknown) (unknown) Bedside Urine (units ( unknown) date) Occult Blood - unknown) Negative (unknown) (no (unknown) (unknown) Bedside Urine (units ( unknown) date) Protein - Negative unknown) (unknown) (no (unknown) (unknown) Bedside Urine (units ( unknown) date) Urobilinogen - unknown) Negative (unknown) (no (unknown) (unknown) Blood Pressure (units (unknown) date) 111/65 132/68 unknown) (unknown) (no (unknown) (unknown) Blood Pressure (units (unknown) date) 137/88 12/19/21 unknown) 21:00 (unknown) (no (unknown) (unknown) CARDIOVASCULAR: (units (unknown) date) Denies chest pain, unknown) palpitations (unknown) (no (unknown) (unknown) CARDIOVASCULAR: (units (unknown) date) peripheral pulses unknown) in tact, cap refill <2 sec (unknown) (no (unknown) (unknown) COVID19 -Nasal (units (unknown) date) RAPID/Pre-Proc Stat unknown) (unknown) (no (unknown) (unknown) Calcium (8.4-10.2) (units (unknown) date) mg/dL unknown) (unknown) (no (unknown) (unknown) Calcium 9.4 (units (un known) date) (8.4-10.2) mg/dL unknown) (unknown) (no (unknown) (unknown) Carbon Dioxide (units (unknown) date) (22-32) mmol/L unknown) (unknown) (no (unknown) (unknown) Carbon Dioxide 22 (units (unknown) date) (22-32) mmol/L unknown) (unknown) (no (unknown) (unknown) Chief Complaint: (units (unknown) date) Psychiatric unknown) Symptoms (unknown) (no (unknown) (unknown) Chloride (98-107) (units (unknown) date) mmol/L unknown) (unknown) (no (unknown) (unknown) Chloride 104 (units (u nknown) date) (98-107) mmol/L unknown) (unknown) (no (unknown) (unknown) Course (units (unkno wn) date) unknown) (unknown) (no (unknown) (unknown) Creatinine (units (unk nown) date) (0.52-1.04) mg/dL unknown) (unknown) (no (unknown) (unknown) Creatinine 0.67 (units (unknown) date) (0.52-1.04) mg/dL unknown) (unknown) (no (unknown) (unknown) : 1990 (units (unknown) date) Acct:[id number] unknown) (unknown) (no (unknown) (unknown) Date of Service: (units (unknown) date) 12/19/21 unknown) (unknown) (no (unknown) (unknown) Departure (units (unkn own) date) unknown) (unknown) (no (unknown) (unknown) Discharge Plan (units (unknown) date) unknown) (unknown) (no (unknown) (unknown) Discontinued (units (u nknown) date) Medications unknown) (unknown) (no (unknown) (unknown) Documented By: RLS (units (unknown) date) unknown) (unknown) (no (unknown) (unknown) ED Orders (units (unkn own) date) unknown) (unknown) (no (unknown) (unknown) ER Physician: (units ( unknown) date) Dionna Ramos D.O. unknown) (unknown) (no (unknown) (unknown) EXTREMITIES: (units (u nknown) date) Normal range of unknown) motion, no clubbing or edema. Neurovascularly (unknown) (no (unknown) (unknown) Emergency Report (units (unknown) date) unknown) (unknown) (no (unknown) (unknown) Eos # (Auto) (units (u nknown) date) (0-450) /uL unknown) (unknown) (no (unknown) (unknown) Eos # (Auto) 200 (units (unknown) date) (0-450) /uL unknown) (unknown) (no (unknown) (unknown) Eos % (Auto) (2-4) (units (unknown) date) % unknown) (unknown) (no (unknown) (unknown) Eos % (Auto) 3.0 (units (unknown) date) (2-4) % unknown) (unknown) (no (unknown) (unknown) Esterase (units (unkno wn) date) unknown) (unknown) (no (unknown) (unknown) Estimated GFR > 60 (units (unknown) date) (>60) mL/min unknown) (unknown) (no (unknown) (unknown) Estimated GFR (units ( unknown) date) (>60) mL/min unknown) (unknown) (no (unknown) (unknown) Ethyl Alcohol < 10 (units (unknown) date) ( - 10) mg/dL unknown) (unknown) (no (unknown) (unknown) Ethyl Alcohol ( - (units (unknown) date) 10) mg/dL unknown) (unknown) (no (unknown) (unknown) Exam (units (unkno wn) date) unknown) (unknown) (no (unknown) (unknown) Free T4 (units (unkno wn) date) (0.78-2.19) ng/dL unknown) (unknown) (no (unknown) (unknown) Free T4 1.26 (units (u nknown) date) (0.78-2.19) ng/dL unknown) (unknown) (no (unknown) (unknown) GASTROINTESTINAL: (units (unknown) date) Denies nausea, unknown) vomiting (unknown) (no (unknown) (unknown) GENERAL: Denies (units (unknown) date) chills,fever unknown) (unknown) (no (unknown) (unknown) GENERAL: Tearful (units (unknown) date) 31-year-old female unknown) (unknown) (no (unknown) (unknown) General (units (unkno wn) date) unknown) (unknown) (no (unknown) (unknown) Globulin (1.7-4.1) (units (unknown) date) g/dL unknown) (unknown) (no (unknown) (unknown) Globulin 3.5 (units (u nknown) date) (1.7-4.1) g/dL unknown) (unknown) (no (unknown) (unknown) Glucose (70-100) (units (unknown) date) mg/dL unknown) (unknown) (no (unknown) (unknown) Glucose 111 H (units ( unknown) date) (70-100) mg/dL unknown) (unknown) (no (unknown) (unknown) HEENT: Denies (units ( unknown) date) throat pain unknown) (unknown) (no (unknown) (unknown) HPI - Psych (units (un known) date) unknown) (unknown) (no (unknown) (unknown) HPI Narrative: (units (unknown) date) unknown) (unknown) (no (unknown) (unknown) Hct (36-46) % (units ( unknown) date) unknown) (unknown) (no (unknown) (unknown) Hct 35.6 L (36-46) (units (unknown) date) % unknown) (unknown) (no (unknown) (unknown) Hgb (12.0-16.0) (units (unknown) date) g/dL unknown) (unknown) (no (unknown) (unknown) Hgb 12.6 (units (unkno wn) date) (12.0-16.0) g/dL unknown) (unknown) (no (unknown) (unknown) History of Present (units (unknown) date) Illness unknown) (unknown) (no (unknown) (unknown) Initial Vital (units ( unknown) date) Signs unknown) (unknown) (no (unknown) (unknown) Initial Vital (units ( unknown) date) Signs: unknown) (unknown) (no (unknown) (unknown) [facility] (units (unknown) date) [address] unknown) [place] [address] (unknown) (no (unknown) (unknown) Lab Data (units (unkno wn) date) unknown) (unknown) (no (unknown) (unknown) Lab Results (units (un known) date) unknown) (unknown) (no (unknown) (unknown) Labs: (units (unkno wn) date) unknown) (unknown) (no (unknown) (unknown) Last Admin: (units (un known) date) 12/20/21 12:34 unknown) Dose: 650 mg (unknown) (no (unknown) (unknown) Lymph # (Auto) (units (unknown) date) (4751-2252) /uL unknown) (unknown) (no (unknown) (unknown) Lymph # (Auto) (units (unknown) date) 2400 ([id number]) unknown) /uL (unknown) (no (unknown) (unknown) Lymph % (Auto) (units (unknown) date) (25-40) % unknown) (unknown) (no (unknown) (unknown) Lymph % (Auto) (units (unknown) date) 37.0 (25-40) % unknown) (unknown) (no (unknown) (unknown) MCH (26-34) PG (units (unknown) date) unknown) (unknown) (no (unknown) (unknown) MCH 30.2 (26-34) (units (unknown) date) PG unknown) (unknown) (no (unknown) (unknown) MCHC (30-36) % (units (unknown) date) unknown) (unknown) (no (unknown) (unknown) MCHC 35.4 (30-36) (units (unknown) date) % unknown) (unknown) (no (unknown) (unknown) MCV (80-100) fL (units (unknown) date) unknown) (unknown) (no (unknown) (unknown) MCV 85.3 (80-100) (units (unknown) date) fL unknown) (unknown) (no (unknown) (unknown) MDM - Psych (units (un known) date) unknown) (unknown) (no (unknown) (unknown) MDM Narrative (units ( unknown) date) unknown) (unknown) (no (unknown) (unknown) MUSCULOSKELETAL: (units (unknown) date) Denies extremity unknown) pain, injury (unknown) (no (unknown) (unknown) Medical decision (units (unknown) date) making narrative: unknown) (unknown) (no (unknown) (unknown) Mode of arrival: (units (unknown) date) Ambulatory unknown) (unknown) (no (unknown) (unknown) [place] # (Auto) (units ( unknown) date) (0-900) /uL unknown) (unknown) (no (unknown) (unknown) [place] # (Auto) 400 (units (unknown) date) (0-900) /uL unknown) (unknown) (no (unknown) (unknown) [place] % (Auto) (units ( unknown) date) (3-14) % unknown) (unknown) (no (unknown) (unknown) [place] % (Auto) 6.8 (units (unknown) date) (3-14) % unknown) (unknown) (no (unknown) (unknown) NEUROLOGIC: Denies (units (unknown) date) weakness, unknown) dizziness, headache, numbness (unknown) (no (unknown) (unknown) NEUROLOGICAL: (units ( unknown) date) Cranial nerves II unknown) through XII grossly intact. Normal gait and (unknown) (no (unknown) (unknown) Narrative: (units (unk nown) date) unknown) (unknown) (no (unknown) (unknown) Neut # (Auto) (units ( unknown) date) (1603-9379) /uL unknown) (unknown) (no (unknown) (unknown) Neut # (Auto) 3300 (units (unknown) date) (2333-9788) /uL unknown) (unknown) (no (unknown) (unknown) Neut % (Auto) (units ( unknown) date) (50-75) % unknown) (unknown) (no (unknown) (unknown) Neut % (Auto) 52.1 (units (unknown) date) (50-75) % unknown) (unknown) (no (unknown) (unknown) Ordered: (units (unkno wn) date) unknown) (unknown) (no (unknown) (unknown) Orders (units (unkno wn) date) unknown) (unknown) (no (unknown) (unknown) Oxygen Delivery (units (unknown) date) Method 12/19/21 unknown) 21:00 (unknown) (no (unknown) (unknown) Oxygen Delivery (units (unknown) date) Method Room Air unknown) Room Air (unknown) (no (unknown) (unknown) Patient History (units (unknown) date) unknown) (unknown) (no (unknown) (unknown) Patient currently (units (unknown) date) is voluntary. To unknown) [facility] evaluation with (unknown) (no (unknown) (unknown) Patient is a (units (un known) date) healthy 31-year-old unknown) female within 2-month-old and (unknown) (no (unknown) (unknown) Patient signed out (units (unknown) date) to Dr. Ramos for unknown) further evaluation management and disposition (unknown) (no (unknown) (unknown) Patient: (units (unkno wn) date) Jaelyn Clayton unknown) MR#: M (unknown) (no (unknown) (unknown) Plt Count (units (unkn own) date) (150-400) X103/uL unknown) (unknown) (no (unknown) (unknown) Plt Count 264 (units ( unknown) date) (150-400) X103/uL unknown) (unknown) (no (unknown) (unknown) Point of Care (units ( unknown) date) Testing unknown) (unknown) (no (unknown) (unknown) Potassium (units (unkn own) date) (3.4-5.1) mmol/L unknown) (unknown) (no (unknown) (unknown) Potassium 3.7 (units ( unknown) date) (3.4-5.1) mmol/L unknown) (unknown) (no (unknown) (unknown) Test (units (unknown) date) Results Negative unknown) (unknown) (no (unknown) (unknown) Provider,Mee (units (unknown) date) REYNALDO [Primary Care unknown) Provider] (unknown) (no (unknown) (unknown) Psychiatric (units (un known) date) unknown) (unknown) (no (unknown) (unknown) Psychiatric: (units (u nknown) date) Reports system unknown) reviewed and no additional complaints, except as (unknown) (no (unknown) (unknown) Pulse Oximetry 97 (units (unknown) date) 12/19/21 21:00 unknown) (unknown) (no (unknown) (unknown) Pulse Oximetry 99 (units (unknown) date) 98 unknown) (unknown) (no (unknown) (unknown) Pulse Rate 75 78 (units (unknown) date) unknown) (unknown) (no (unknown) (unknown) Pulse Rate 81 (units ( unknown) date) 12/19/21 21:00 unknown) (unknown) (no (unknown) (unknown) RBC (4.0-5.2) (units ( unknown) date) X106/uL unknown) (unknown) (no (unknown) (unknown) RBC 4.17 (4.0-5.2) (units (unknown) date) X106/uL unknown) (unknown) (no (unknown) (unknown) RDW (11.6-14.8) % (units (unknown) date) unknown) (unknown) (no (unknown) (unknown) RDW 13.2 (units (unkno wn) date) (11.6-14.8) % unknown) (unknown) (no (unknown) (unknown) RESPIRATORY: (units (u nknown) date) Denies dyspnea, unknown) cough, wheezing (unknown) (no (unknown) (unknown) RESPIRATORY: No (units (unknown) date) respiratory unknown) distress, speaks in full sentences without (unknown) (no (unknown) (unknown) Referrals: (units (unk nown) date) unknown) (unknown) (no (unknown) (unknown) Related Data (units (u nknown) date) unknown) (unknown) (no (unknown) (unknown) Respiratory Rate (units (unknown) date) 14 15 unknown) (unknown) (no (unknown) (unknown) Respiratory Rate (units (unknown) date) 22 12/19/21 21:00 unknown) (unknown) (no (unknown) (unknown) Result diagrams: (units (unknown) date) unknown) (unknown) (no (unknown) (unknown) Review of Systems (units (unknown) date) unknown) (unknown) (no (unknown) (unknown) SARS-CoV-2 (PCR) (units (unknown) date) (Negative) unknown) (unknown) (no (unknown) (unknown) SARS-CoV-2 (PCR) (units (unknown) date) Negative (Negative) unknown) (unknown) (no (unknown) (unknown) SKIN: No rash, no (units (unknown) date) laceration, no unknown) pruritus (unknown) (no (unknown) (unknown) SKIN: Warm, dry, (units (unknown) date) no petechiae, no unknown) rashes or lesions. (unknown) (no (unknown) (unknown) Salicylates < 1.0 (units (unknown) date) (<20) mg/dL unknown) (unknown) (no (unknown) (unknown) Salicylates (<20) (units (unknown) date) mg/dL unknown) (unknown) (no (unknown) (unknown) Signed By: (units (unk nown) date) unknown) (unknown) (no (unknown) (unknown) Smoking Status: (units (unknown) date) Never smoker unknown) (unknown) (no (unknown) (unknown) Social History (units (unknown) date) (Reviewed 12/20/21 unknown) @ 06:36 by Ioana Hendrickson DO) (unknown) (no (unknown) (unknown) Sodium (137-145) (units (unknown) date) mmol/L unknown) (unknown) (no (unknown) (unknown) Sodium 138 (units (unk nown) date) (137-145) mmol/L unknown) (unknown) (no (unknown) (unknown) Source: patient (units (unknown) date) unknown) (unknown) (no (unknown) (unknown) Stated Complaint: (units (unknown) date) Needs to be seen, unknown) sent by [facility] (unknown) (no (unknown) (unknown) Stop: 12/20/21 (units (unknown) date) 12:32 unknown) (unknown) (no (unknown) (unknown) TSH (0.47-4.68) (units (unknown) date) uIU/mL unknown) (unknown) (no (unknown) (unknown) TSH 1.23 (units (unkno wn) date) (0.47-4.68) uIU/mL unknown) (unknown) (no (unknown) (unknown) Temperature 97.8 F (units (unknown) date) 12/19/21 21:00 unknown) (unknown) (no (unknown) (unknown) Time Seen by (units (u nknown) date) Provider: 12/20/21 unknown) 06:22 (unknown) (no (unknown) (unknown) Total Bilirubin (units (unknown) date) (0.2-1.3) mg/dL unknown) (unknown) (no (unknown) (unknown) Total Bilirubin (units (unknown) date) 0.6 (0.2-1.3) mg/dL unknown) (unknown) (no (unknown) (unknown) Total Protein (units ( unknown) date) (6.3-8.2) g/dL unknown) (unknown) (no (unknown) (unknown) Total Protein 8.3 (units (unknown) date) H (6.3-8.2) g/dL unknown) (unknown) (no (unknown) (unknown) U Benzodiazepines (units (unknown) date) Scrn (Negative) unknown) (unknown) (no (unknown) (unknown) U Benzodiazepines (units (unknown) date) Scrn Negative unknown) (Negative) (unknown) (no (unknown) (unknown) U Marijuana (THC) (units (unknown) date) Screen (Negative) unknown) (unknown) (no (unknown) (unknown) U Marijuana (THC) (units (unknown) date) Screen Negative unknown) (Negative) (unknown) (no (unknown) (unknown) U Methamphetamines (units (unknown) date) Scrn (Negative) unknown) (unknown) (no (unknown) (unknown) U Methamphetamines (units (unknown) date) Scrn Negative unknown) (Negative) (unknown) (no (unknown) (unknown) U Opiates 300ng/mL (units (unknown) date) cut (Negative) unknown) (unknown) (no (unknown) (unknown) U Opiates 300ng/mL (units (unknown) date) cut Negative unknown) (Negative) (unknown) (no (unknown) (unknown) U Tricyclic (units (un known) date) Antidepress unknown) (Negative) (unknown) (no (unknown) (unknown) U Tricyclic (units (un known) date) Antidepress unknown) Negative (Negative) (unknown) (no (unknown) (unknown) Ur Amphetamines (units (unknown) date) Screen (Negative) unknown) (unknown) (no (unknown) (unknown) Ur Amphetamines (units (unknown) date) Screen Negative unknown) (Negative) (unknown) (no (unknown) (unknown) Ur Barbiturates (units (unknown) date) Screen (Negative) unknown) (unknown) (no (unknown) (unknown) Ur Barbiturates (units (unknown) date) Screen Negative unknown) (Negative) (unknown) (no (unknown) (unknown) Ur MDMA Scrn (units (u nknown) date) (Ecstasy) unknown) (Negative) (unknown) (no (unknown) (unknown) Ur MDMA Scrn (units (u nknown) date) (Ecstasy) Negative unknown) (Negative) (unknown) (no (unknown) (unknown) Ur Oxycodone (units (u nknown) date) Screen (Negative) unknown) (unknown) (no (unknown) (unknown) Ur Oxycodone (units (u nknown) date) Screen Negative unknown) (Negative) (unknown) (no (unknown) (unknown) Ur Phencyclidine (units (unknown) date) Scrn (Negative) unknown) (unknown) (no (unknown) (unknown) Ur Phencyclidine (units (unknown) date) Scrn Negative unknown) (Negative) (unknown) (no (unknown) (unknown) Urine Cocaine (units ( unknown) date) Screen (Negative) unknown) (unknown) (no (unknown) (unknown) Urine Cocaine (units ( unknown) date) Screen Negative unknown) (Negative) (unknown) (no (unknown) (unknown) Urine Dip (units (unkn own) date) unknown) (unknown) (no (unknown) (unknown) Urine Methadone (units (unknown) date) Screen (Negative) unknown) (unknown) (no (unknown) (unknown) Urine Methadone (units (unknown) date) Screen Negative unknown) (Negative) (unknown) (no (unknown) (unknown) Vital Signs - 8 hr (units (unknown) date) unknown) (unknown) (no (unknown) (unknown) Vital Signs (units (un known) date) unknown) (unknown) (no (unknown) (unknown) Vital signs: (units (u nknown) date) unknown) (unknown) (no (unknown) (unknown) WBC (4.5-11.0) (units (unknown) date) X103/uL unknown) (unknown) (no (unknown) (unknown) WBC 6.4 (4.5-11.0) (units (unknown) date) X103/uL unknown) (unknown) (no (unknown) (unknown) [Embedded Image (units (unknown) date) Not Available] unknown) (unknown) (no (unknown) (unknown) a 5-year-old (units (u nknown) date) presenting today unknown) with suicidal ideations. States that she has (unknown) (no (unknown) (unknown) alcohol intake (units (unknown) date) frequency: 0-2 unknown) drinks per day (unknown) (no (unknown) (unknown) are multiple guns (units (unknown) date) at home. She does unknown) not want to hurt her children however he (unknown) (no (unknown) (unknown) difficulty (units (unk nown) date) unknown) (unknown) (no (unknown) (unknown) documented, Denies (units (unknown) date) homicidal ideation unknown) and Reports suicidal ideation (unknown) (no (unknown) (unknown) feelings got even (units (unknown) date) worse. She says she unknown) does not trust herself at home. There (unknown) (no (unknown) (unknown) gluten Allergy (units (unknown) date) Intermediate Hives unknown) Verified 12/20/21 06:35 (unknown) (no (unknown) (unknown) intact (units (unkno wn) date) unknown) (unknown) (no (unknown) (unknown) just feels like (units (unknown) date) she does not want unknown) to live. She does not want to feel this way (unknown) (no (unknown) (unknown) probable (units (unkno wn) date) placement. Patient unknown) does have [id number] here now for temporary help (unknown) (no (unknown) (unknown) she does not know (units (unknown) date) why she is feeling unknown) this way. She does not trust herself. (unknown) (no (unknown) (unknown) speech. (units (unkno wn) date) unknown) (unknown) (no (unknown) (unknown) started feeling (units (unknown) date) this way for a unknown) couple of weeks. Stating that she just does not (unknown) (no (unknown) (unknown) want to live. Her (units (unknown) date) deployed unknown) last week [place] ([place]) (no (unknown) (unknown) with children. She (units (unknown) date) does have a couple unknown) with friends. 1 is here now. Result panel 9 (unknown) (no (unknown) (unknown) (no value) (units (unk nown) date) unknown) (unknown) (no (unknown) (unknown) [id number] (units (unkn own) date) unknown) (unknown) (no (unknown) (unknown) 07:01 12/20/21 (units (unknown) date) unknown) (unknown) (no (unknown) (unknown) 12/19/21 12/19/21 (units (unknown) date) 12/19/21 unknown) Range/Units (unknown) (no (unknown) (unknown) 12/19/21 12/20/21 (units (unknown) date) Range/Units unknown) (unknown) (no (unknown) (unknown) 12/19/21 21:44 (units (unknown) date) unknown) (unknown) (no (unknown) (unknown) 12/20/21 12:23 (units (unknown) date) unknown) (unknown) (no (unknown) (unknown) 12/20/21 (units (unkno wn) date) unknown) (unknown) (no (unknown) (unknown) 13:00 (units (unkno wn) date) unknown) (unknown) (no (unknown) (unknown) 21:44 21:44 21:44 (units (unknown) date) unknown) (unknown) (no (unknown) (unknown) 22:35 12:23 (units (un known) date) unknown) (unknown) (no (unknown) (unknown) 8 point review of (units (unknown) date) systems is negative unknown) except for those stated above and HPI (unknown) (no (unknown) (unknown) ALT (<35) IU/L (units (unknown) date) unknown) (unknown) (no (unknown) (unknown) ALT 48 H (<35) (units (unknown) date) IU/L unknown) (unknown) (no (unknown) (unknown) AST (14-36) IU/L (units (unknown) date) unknown) (unknown) (no (unknown) (unknown) AST 36 (14-36) (units (unknown) date) IU/L unknown) (unknown) (no (unknown) (unknown) Acetaminophen < 10 (units (unknown) date) (10-30) ug/mL unknown) (unknown) (no (unknown) (unknown) Acetaminophen (units ( unknown) date) (10-30) ug/mL unknown) (unknown) (no (unknown) (unknown) Acetaminophen (units ( unknown) date) (Acetaminophen 325 unknown) Mg Tablet) 650 mg PO NOW ONE (unknown) (no (unknown) (unknown) Age/Sex: 31 / F (units (unknown) date) unknown) (unknown) (no (unknown) (unknown) Albumin (3.5-5.0) (units (unknown) date) g/dL unknown) (unknown) (no (unknown) (unknown) Albumin 4.8 (units (un known) date) (3.5-5.0) g/dL unknown) (unknown) (no (unknown) (unknown) Albumin/Globulin (units (unknown) date) Ratio (1.0-2.8) unknown) (unknown) (no (unknown) (unknown) Albumin/Globulin (units (unknown) date) Ratio 1.4 (1.0-2.8) unknown) (unknown) (no (unknown) (unknown) Alkaline (units (unkno wn) date) Phosphatase unknown) (38-126) U/L (unknown) (no (unknown) (unknown) Alkaline (units (unkno wn) date) Phosphatase 110 unknown) (38-126) U/L (unknown) (no (unknown) (unknown) Allergies (units (unkn own) date) unknown) (unknown) (no (unknown) (unknown) Allergy/AdvReac (units (unknown) date) Type Severity unknown) Reaction Status Date / Time (unknown) (no (unknown) (unknown) BUN (7-17) mg/dL (units (unknown) date) unknown) (unknown) (no (unknown) (unknown) BUN 11 (7-17) (units ( unknown) date) mg/dL unknown) (unknown) (no (unknown) (unknown) BUN/Creatinine (units (unknown) date) Ratio (6-22) unknown) (unknown) (no (unknown) (unknown) BUN/Creatinine (units (unknown) date) Ratio 16.4 (6-22) unknown) (unknown) (no (unknown) (unknown) Baso # (Auto) (units ( unknown) date) (0-100) /uL unknown) (unknown) (no (unknown) (unknown) Baso # (Auto) 100 (units (unknown) date) (0-100) /uL unknown) (unknown) (no (unknown) (unknown) Baso % (Auto) (units ( unknown) date) (0-2) % unknown) (unknown) (no (unknown) (unknown) Baso % (Auto) 1.1 (units (unknown) date) (0-2) % unknown) (unknown) (no (unknown) (unknown) Bedside Urine (units ( unknown) date) Bilirubin - unknown) Negative (unknown) (no (unknown) (unknown) Bedside Urine (units ( unknown) date) Glucose Negative unknown) (unknown) (no (unknown) (unknown) Bedside Urine (units ( unknown) date) Ketone - Negative unknown) (unknown) (no (unknown) (unknown) Bedside Urine (units ( unknown) date) Leukocytes - unknown) Negative (unknown) (no (unknown) (unknown) Bedside Urine (units ( unknown) date) Nitrite - Negative unknown) (unknown) (no (unknown) (unknown) Bedside Urine (units ( unknown) date) Occult Blood - unknown) Negative (unknown) (no (unknown) (unknown) Bedside Urine (units ( unknown) date) Protein - Negative unknown) (unknown) (no (unknown) (unknown) Bedside Urine (units ( unknown) date) Urobilinogen - unknown) Negative (unknown) (no (unknown) (unknown) Blood Pressure (units (unknown) date) 111/65 132/68 unknown) (unknown) (no (unknown) (unknown) Blood Pressure (units (unknown) date) 137/88 12/19/21 unknown) 21:00 (unknown) (no (unknown) (unknown) CARDIOVASCULAR: (units (unknown) date) Denies chest pain, unknown) palpitations (unknown) (no (unknown) (unknown) CARDIOVASCULAR: (units (unknown) date) peripheral pulses unknown) in tact, cap refill <2 sec (unknown) (no (unknown) (unknown) COVID19 -Nasal (units (unknown) date) RAPID/Pre-Proc Stat unknown) (unknown) (no (unknown) (unknown) Calcium (8.4-10.2) (units (unknown) date) mg/dL unknown) (unknown) (no (unknown) (unknown) Calcium 9.4 (units (un known) date) (8.4-10.2) mg/dL unknown) (unknown) (no (unknown) (unknown) Carbon Dioxide (units (unknown) date) (22-32) mmol/L unknown) (unknown) (no (unknown) (unknown) Carbon Dioxide 22 (units (unknown) date) (22-32) mmol/L unknown) (unknown) (no (unknown) (unknown) Chief Complaint: (units (unknown) date) Psychiatric unknown) Symptoms (unknown) (no (unknown) (unknown) Chloride (98-107) (units (unknown) date) mmol/L unknown) (unknown) (no (unknown) (unknown) Chloride 104 (units (u nknown) date) (98-107) mmol/L unknown) (unknown) (no (unknown) (unknown) Course (units (unkno wn) date) unknown) (unknown) (no (unknown) (unknown) Creatinine (units (unk nown) date) (0.52-1.04) mg/dL unknown) (unknown) (no (unknown) (unknown) Creatinine 0.67 (units (unknown) date) (0.52-1.04) mg/dL unknown) (unknown) (no (unknown) (unknown) : 1990 (units (unknown) date) Acct:[id number] unknown) (unknown) (no (unknown) (unknown) Date of Service: (units (unknown) date) 12/19/21 unknown) (unknown) (no (unknown) (unknown) Departure (units (unkn own) date) unknown) (unknown) (no (unknown) (unknown) Discharge Plan (units (unknown) date) unknown) (unknown) (no (unknown) (unknown) Discontinued (units (u nknown) date) Medications unknown) (unknown) (no (unknown) (unknown) Documented By: ADK (units (unknown) date) unknown) (unknown) (no (unknown) (unknown) Documented By: RLS (units (unknown) date) unknown) (unknown) (no (unknown) (unknown) ED Orders (units (unkn own) date) unknown) (unknown) (no (unknown) (unknown) ER Physician: (units ( unknown) date) Dionna Ramos D.O. unknown) (unknown) (no (unknown) (unknown) EXTREMITIES: (units (u nknown) date) Normal range of unknown) motion, no clubbing or edema. Neurovascularly (unknown) (no (unknown) (unknown) Emergency Report (units (unknown) date) unknown) (unknown) (no (unknown) (unknown) Eos # (Auto) (units (u nknown) date) (0-450) /uL unknown) (unknown) (no (unknown) (unknown) Eos # (Auto) 200 (units (unknown) date) (0-450) /uL unknown) (unknown) (no (unknown) (unknown) Eos % (Auto) (2-4) (units (unknown) date) % unknown) (unknown) (no (unknown) (unknown) Eos % (Auto) 3.0 (units (unknown) date) (2-4) % unknown) (unknown) (no (unknown) (unknown) Esterase (units (unkno wn) date) unknown) (unknown) (no (unknown) (unknown) Estimated GFR > 60 (units (unknown) date) (>60) mL/min unknown) (unknown) (no (unknown) (unknown) Estimated GFR (units ( unknown) date) (>60) mL/min unknown) (unknown) (no (unknown) (unknown) Ethyl Alcohol < 10 (units (unknown) date) ( - 10) mg/dL unknown) (unknown) (no (unknown) (unknown) Ethyl Alcohol ( - (units (unknown) date) 10) mg/dL unknown) (unknown) (no (unknown) (unknown) Exam (units (unkno wn) date) unknown) (unknown) (no (unknown) (unknown) Free T4 (units (unkno wn) date) (0.78-2.19) ng/dL unknown) (unknown) (no (unknown) (unknown) Free T4 1.26 (units (u nknown) date) (0.78-2.19) ng/dL unknown) (unknown) (no (unknown) (unknown) GASTROINTESTINAL: (units (unknown) date) Denies nausea, unknown) vomiting (unknown) (no (unknown) (unknown) GENERAL: Denies (units (unknown) date) chills,fever unknown) (unknown) (no (unknown) (unknown) GENERAL: Tearful (units (unknown) date) 31-year-old female unknown) (unknown) (no (unknown) (unknown) General (units (unkno wn) date) unknown) (unknown) (no (unknown) (unknown) Globulin (1.7-4.1) (units (unknown) date) g/dL unknown) (unknown) (no (unknown) (unknown) Globulin 3.5 (units (u nknown) date) (1.7-4.1) g/dL unknown) (unknown) (no (unknown) (unknown) Glucose (70-100) (units (unknown) date) mg/dL unknown) (unknown) (no (unknown) (unknown) Glucose 111 H (units ( unknown) date) (70-100) mg/dL unknown) (unknown) (no (unknown) (unknown) HEENT: Denies (units ( unknown) date) throat pain unknown) (unknown) (no (unknown) (unknown) HPI - Psych (units (un known) date) unknown) (unknown) (no (unknown) (unknown) HPI Narrative: (units (unknown) date) unknown) (unknown) (no (unknown) (unknown) Hct (36-46) % (units ( unknown) date) unknown) (unknown) (no (unknown) (unknown) Hct 35.6 L (36-46) (units (unknown) date) % unknown) (unknown) (no (unknown) (unknown) Hgb (12.0-16.0) (units (unknown) date) g/dL unknown) (unknown) (no (unknown) (unknown) Hgb 12.6 (units (unkno wn) date) (12.0-16.0) g/dL unknown) (unknown) (no (unknown) (unknown) History of Present (units (unknown) date) Illness unknown) (unknown) (no (unknown) (unknown) Initial Vital (units ( unknown) date) Signs unknown) (unknown) (no (unknown) (unknown) Initial Vital (units ( unknown) date) Signs: unknown) (unknown) (no (unknown) (unknown) [facility] (units (unknown) date) [address] [place] [address] unknown) [place] [address] (unknown) (no (unknown) (unknown) Lab Data (units (unkno wn) date) unknown) (unknown) (no (unknown) (unknown) Lab Results (units (un known) date) unknown) (unknown) (no (unknown) (unknown) Labs: (units (unkno wn) date) unknown) (unknown) (no (unknown) (unknown) Last Admin: (units (un known) date) 12/20/21 12:34 unknown) Dose: 650 mg (unknown) (no (unknown) (unknown) Last Admin: (units (un known) date) 12/20/21 14:19 unknown) Dose: 1 mg (unknown) (no (unknown) (unknown) Lorazepam (units (unkn own) date) (Lorazepam 0.5 Mg unknown) Tablet) 1 mg PO NOW ONE (unknown) (no (unknown) (unknown) Lymph # (Auto) (units (unknown) date) (0973-0419) /uL unknown) (unknown) (no (unknown) (unknown) Lymph # (Auto) (units (unknown) date) 2400 (6592-4345) unknown) /uL (unknown) (no (unknown) (unknown) Lymph % (Auto) (units (unknown) date) (25-40) % unknown) (unknown) (no (unknown) (unknown) Lymph % (Auto) (units (unknown) date) 37.0 (25-40) % unknown) (unknown) (no (unknown) (unknown) MCH (26-34) PG (units (unknown) date) unknown) (unknown) (no (unknown) (unknown) MCH 30.2 (26-34) (units (unknown) date) PG unknown) (unknown) (no (unknown) (unknown) MCHC (30-36) % (units (unknown) date) unknown) (unknown) (no (unknown) (unknown) MCHC 35.4 (30-36) (units (unknown) date) % unknown) (unknown) (no (unknown) (unknown) MCV (80-100) fL (units (unknown) date) unknown) (unknown) (no (unknown) (unknown) MCV 85.3 (80-100) (units (unknown) date) fL unknown) (unknown) (no (unknown) (unknown) MDM - Psych (units (un known) date) unknown) (unknown) (no (unknown) (unknown) MDM Narrative (units ( unknown) date) unknown) (unknown) (no (unknown) (unknown) MUSCULOSKELETAL: (units (unknown) date) Denies extremity unknown) pain, injury (unknown) (no (unknown) (unknown) Medical decision (units (unknown) date) making narrative: unknown) (unknown) (no (unknown) (unknown) Mode of arrival: (units (unknown) date) Ambulatory unknown) (unknown) (no (unknown) (unknown) [place] # (Auto) (units ( unknown) date) (0-900) /uL unknown) (unknown) (no (unknown) (unknown) [place] # (Auto) 400 (units (unknown) date) (0-900) /uL unknown) (unknown) (no (unknown) (unknown) [place] % (Auto) (units ( unknown) date) (3-14) % unknown) (unknown) (no (unknown) (unknown) [place] % (Auto) 6.8 (units (unknown) date) (3-14) % unknown) (unknown) (no (unknown) (unknown) NEUROLOGIC: Denies (units (unknown) date) weakness, unknown) dizziness, headache, numbness (unknown) (no (unknown) (unknown) NEUROLOGICAL: (units ( unknown) date) Cranial nerves II unknown) through XII grossly intact. Normal gait and (unknown) (no (unknown) (unknown) Narrative: (units (unk nown) date) unknown) (unknown) (no (unknown) (unknown) Neut # (Auto) (units ( unknown) date) (0435-7602) /uL unknown) (unknown) (no (unknown) (unknown) Neut # (Auto) 3300 (units (unknown) date) (4965-1166) /uL unknown) (unknown) (no (unknown) (unknown) Neut % (Auto) (units ( unknown) date) (50-75) % unknown) (unknown) (no (unknown) (unknown) Neut % (Auto) 52.1 (units (unknown) date) (50-75) % unknown) (unknown) (no (unknown) (unknown) Ordered: (units (unkno wn) date) unknown) (unknown) (no (unknown) (unknown) Orders (units (unkno wn) date) unknown) (unknown) (no (unknown) (unknown) Oxygen Delivery (units (unknown) date) Method 12/19/21 unknown) 21:00 (unknown) (no (unknown) (unknown) Oxygen Delivery (units (unknown) date) Method Room Air unknown) Room Air (unknown) (no (unknown) (unknown) Patient History (units (unknown) date) unknown) (unknown) (no (unknown) (unknown) Patient currently (units (unknown) date) is voluntary. To unknown) [facility] evaluation with (unknown) (no (unknown) (unknown) Patient is a (units (un known) date) healthy 31-year-old unknown) female within 2-month-old and (unknown) (no (unknown) (unknown) Patient signed out (units (unknown) date) to Dr. Ramos for unknown) further evaluation management and disposition (unknown) (no (unknown) (unknown) Patient: (units (unkno wn) date) Jaelyn Clayton unknown) MR#: M (unknown) (no (unknown) (unknown) Plt Count (units (unkn own) date) (150-400) X103/uL unknown) (unknown) (no (unknown) (unknown) Plt Count 264 (units ( unknown) date) (150-400) X103/uL unknown) (unknown) (no (unknown) (unknown) Point of Care (units ( unknown) date) Testing unknown) (unknown) (no (unknown) (unknown) Potassium (units (unkn own) date) (3.4-5.1) mmol/L unknown) (unknown) (no (unknown) (unknown) Potassium 3.7 (units ( unknown) date) (3.4-5.1) mmol/L unknown) (unknown) (no (unknown) (unknown) Test (units (unknown) date) Results Negative unknown) (unknown) (no (unknown) (unknown) Provider,Mee (units (unknown) date) REYNALDO [Primary Care unknown) Provider] (unknown) (no (unknown) (unknown) Psychiatric (units (un known) date) unknown) (unknown) (no (unknown) (unknown) Psychiatric: (units (u nknown) date) Reports system unknown) reviewed and no additional complaints, except as (unknown) (no (unknown) (unknown) Pulse Oximetry 97 (units (unknown) date) 12/19/21 21:00 unknown) (unknown) (no (unknown) (unknown) Pulse Oximetry 99 (units (unknown) date) 98 unknown) (unknown) (no (unknown) (unknown) Pulse Rate 75 78 (units (unknown) date) unknown) (unknown) (no (unknown) (unknown) Pulse Rate 81 (units ( unknown) date) 12/19/21 21:00 unknown) (unknown) (no (unknown) (unknown) RBC (4.0-5.2) (units ( unknown) date) X106/uL unknown) (unknown) (no (unknown) (unknown) RBC 4.17 (4.0-5.2) (units (unknown) date) X106/uL unknown) (unknown) (no (unknown) (unknown) RDW (11.6-14.8) % (units (unknown) date) unknown) (unknown) (no (unknown) (unknown) RDW 13.2 (units (unkno wn) date) (11.6-14.8) % unknown) (unknown) (no (unknown) (unknown) RESPIRATORY: (units (u nknown) date) Denies dyspnea, unknown) cough, wheezing (unknown) (no (unknown) (unknown) RESPIRATORY: No (units (unknown) date) respiratory unknown) distress, speaks in full sentences without (unknown) (no (unknown) (unknown) Referrals: (units (unk nown) date) unknown) (unknown) (no (unknown) (unknown) Related Data (units (u nknown) date) unknown) (unknown) (no (unknown) (unknown) Respiratory Rate (units (unknown) date) 14 15 unknown) (unknown) (no (unknown) (unknown) Respiratory Rate (units (unknown) date) 22 12/19/21 21:00 unknown) (unknown) (no (unknown) (unknown) Result diagrams: (units (unknown) date) unknown) (unknown) (no (unknown) (unknown) Review of Systems (units (unknown) date) unknown) (unknown) (no (unknown) (unknown) SARS-CoV-2 (PCR) (units (unknown) date) (Negative) unknown) (unknown) (no (unknown) (unknown) SARS-CoV-2 (PCR) (units (unknown) date) Negative (Negative) unknown) (unknown) (no (unknown) (unknown) SKIN: No rash, no (units (unknown) date) laceration, no unknown) pruritus (unknown) (no (unknown) (unknown) SKIN: Warm, dry, (units (unknown) date) no petechiae, no unknown) rashes or lesions. (unknown) (no (unknown) (unknown) Salicylates < 1.0 (units (unknown) date) (<20) mg/dL unknown) (unknown) (no (unknown) (unknown) Salicylates (<20) (units (unknown) date) mg/dL unknown) (unknown) (no (unknown) (unknown) Signed By: (units (unk nown) date) unknown) (unknown) (no (unknown) (unknown) Smoking Status: (units (unknown) date) Never smoker unknown) (unknown) (no (unknown) (unknown) Social History (units (unknown) date) (Reviewed 12/20/21 unknown) @ 06:36 by Ioana Botnick, DO) (unknown) (no (unknown) (unknown) Sodium (137-145) (units (unknown) date) mmol/L unknown) (unknown) (no (unknown) (unknown) Sodium 138 (units (unk nown) date) (137-145) mmol/L unknown) (unknown) (no (unknown) (unknown) Source: patient (units (unknown) date) unknown) (unknown) (no (unknown) (unknown) Stated Complaint: (units (unknown) date) Needs to be seen, unknown) sent by [facility] (unknown) (no (unknown) (unknown) Stop: 12/20/21 (units (unknown) date) 12:32 unknown) (unknown) (no (unknown) (unknown) Stop: 12/20/21 (units (unknown) date) 13:54 unknown) (unknown) (no (unknown) (unknown) TSH (0.47-4.68) (units (unknown) date) uIU/mL unknown) (unknown) (no (unknown) (unknown) TSH 1.23 (units (unkno wn) date) (0.47-4.68) uIU/mL unknown) (unknown) (no (unknown) (unknown) Temperature 97.8 F (units (unknown) date) 12/19/21 21:00 unknown) (unknown) (no (unknown) (unknown) Time Seen by (units (u nknown) date) Provider: 12/20/21 unknown) 06:22 (unknown) (no (unknown) (unknown) Total Bilirubin (units (unknown) date) (0.2-1.3) mg/dL unknown) (unknown) (no (unknown) (unknown) Total Bilirubin (units (unknown) date) 0.6 (0.2-1.3) mg/dL unknown) (unknown) (no (unknown) (unknown) Total Protein (units ( unknown) date) (6.3-8.2) g/dL unknown) (unknown) (no (unknown) (unknown) Total Protein 8.3 (units (unknown) date) H (6.3-8.2) g/dL unknown) (unknown) (no (unknown) (unknown) U Benzodiazepines (units (unknown) date) Scrn (Negative) unknown) (unknown) (no (unknown) (unknown) U Benzodiazepines (units (unknown) date) Scrn Negative unknown) (Negative) (unknown) (no (unknown) (unknown) U Marijuana (THC) (units (unknown) date) Screen (Negative) unknown) (unknown) (no (unknown) (unknown) U Marijuana (THC) (units (unknown) date) Screen Negative unknown) (Negative) (unknown) (no (unknown) (unknown) U Methamphetamines (units (unknown) date) Scrn (Negative) unknown) (unknown) (no (unknown) (unknown) U Methamphetamines (units (unknown) date) Scrn Negative unknown) (Negative) (unknown) (no (unknown) (unknown) U Opiates 300ng/mL (units (unknown) date) cut (Negative) unknown) (unknown) (no (unknown) (unknown) U Opiates 300ng/mL (units (unknown) date) cut Negative unknown) (Negative) (unknown) (no (unknown) (unknown) U Tricyclic (units (un known) date) Antidepress unknown) (Negative) (unknown) (no (unknown) (unknown) U Tricyclic (units (un known) date) Antidepress unknown) Negative (Negative) (unknown) (no (unknown) (unknown) Ur Amphetamines (units (unknown) date) Screen (Negative) unknown) (unknown) (no (unknown) (unknown) Ur Amphetamines (units (unknown) date) Screen Negative unknown) (Negative) (unknown) (no (unknown) (unknown) Ur Barbiturates (units (unknown) date) Screen (Negative) unknown) (unknown) (no (unknown) (unknown) Ur Barbiturates (units (unknown) date) Screen Negative unknown) (Negative) (unknown) (no (unknown) (unknown) Ur MDMA Scrn (units (u nknown) date) (Ecstasy) unknown) (Negative) (unknown) (no (unknown) (unknown) Ur MDMA Scrn (units (u nknown) date) (Ecstasy) Negative unknown) (Negative) (unknown) (no (unknown) (unknown) Ur Oxycodone (units (u nknown) date) Screen (Negative) unknown) (unknown) (no (unknown) (unknown) Ur Oxycodone (units (u nknown) date) Screen Negative unknown) (Negative) (unknown) (no (unknown) (unknown) Ur Phencyclidine (units (unknown) date) Scrn (Negative) unknown) (unknown) (no (unknown) (unknown) Ur Phencyclidine (units (unknown) date) Scrn Negative unknown) (Negative) (unknown) (no (unknown) (unknown) Urine Cocaine (units ( unknown) date) Screen (Negative) unknown) (unknown) (no (unknown) (unknown) Urine Cocaine (units ( unknown) date) Screen Negative unknown) (Negative) (unknown) (no (unknown) (unknown) Urine Dip (units (unkn own) date) unknown) (unknown) (no (unknown) (unknown) Urine Methadone (units (unknown) date) Screen (Negative) unknown) (unknown) (no (unknown) (unknown) Urine Methadone (units (unknown) date) Screen Negative unknown) (Negative) (unknown) (no (unknown) (unknown) Vital Signs - 8 hr (units (unknown) date) unknown) (unknown) (no (unknown) (unknown) Vital Signs (units (un known) date) unknown) (unknown) (no (unknown) (unknown) Vital signs: (units (u nknown) date) unknown) (unknown) (no (unknown) (unknown) WBC (4.5-11.0) (units (unknown) date) X103/uL unknown) (unknown) (no (unknown) (unknown) WBC 6.4 (4.5-11.0) (units (unknown) date) X103/uL unknown) (unknown) (no (unknown) (unknown) [Embedded Image (units (unknown) date) Not Available] unknown) (unknown) (no (unknown) (unknown) a 5-year-old (units (u nknown) date) presenting today unknown) with suicidal ideations. States that she has (unknown) (no (unknown) (unknown) alcohol intake (units (unknown) date) frequency: 0-2 unknown) drinks per day (unknown) (no (unknown) (unknown) are multiple guns (units (unknown) date) at home. She does unknown) not want to hurt her children however he (unknown) (no (unknown) (unknown) difficulty (units (unk nown) date) unknown) (unknown) (no (unknown) (unknown) documented, Denies (units (unknown) date) homicidal ideation unknown) and Reports suicidal ideation (unknown) (no (unknown) (unknown) feelings got even (units (unknown) date) worse. She says she unknown) does not trust herself at home. There (unknown) (no (unknown) (unknown) gluten Allergy (units (unknown) date) Intermediate Hives unknown) Verified 12/20/21 06:35 (unknown) (no (unknown) (unknown) intact (units (unkno wn) date) unknown) (unknown) (no (unknown) (unknown) just feels like (units (unknown) date) she does not want unknown) to live. She does not want to feel this way (unknown) (no (unknown) (unknown) probable (units (unkno wn) date) placement. Patient unknown) does have [id number] here now for temporary help (unknown) (no (unknown) (unknown) she does not know (units (unknown) date) why she is feeling unknown) this way. She does not trust herself. (unknown) (no (unknown) (unknown) speech. (units (unkno wn) date) unknown) (unknown) (no (unknown) (unknown) started feeling (units (unknown) date) this way for a unknown) couple of weeks. Stating that she just does not (unknown) (no (unknown) (unknown) want to live. Her (units (unknown) date) deployed unknown) last week for a six[place]month to plain in her (unknown) (no (unknown) (unknown) with children. She (units (unknown) date) does have a couple unknown) with friends. 1 is here now. Result panel 10 (unknown) (no (unknown) (unknown) (no value) (units (unk nown) date) unknown) (unknown) (no (unknown) (unknown) [id number] (units (unkn own) date) unknown) (unknown) (no (unknown) (unknown) 12/19/21 12/19/21 (units (unknown) date) 12/19/21 unknown) Range/Units (unknown) (no (unknown) (unknown) 12/19/21 12/20/21 (units (unknown) date) Range/Units unknown) (unknown) (no (unknown) (unknown) 12/19/21 21:44 (units (unknown) date) unknown) (unknown) (no (unknown) (unknown) 12/20/21 12:23 (units (unknown) date) unknown) (unknown) (no (unknown) (unknown) 12/20/21 (units (unkno wn) date) unknown) (unknown) (no (unknown) (unknown) 13:00 12/20/21 (units (unknown) date) unknown) (unknown) (no (unknown) (unknown) 15:46 12/20/21 (units (unknown) date) unknown) (unknown) (no (unknown) (unknown) 17:37 (units (unkno wn) date) unknown) (unknown) (no (unknown) (unknown) 21:44 21:44 21:44 (units (unknown) date) unknown) (unknown) (no (unknown) (unknown) 22:35 12:23 (units (un known) date) unknown) (unknown) (no (unknown) (unknown) 8 point review of (units (unknown) date) systems is negative unknown) except for those stated above and HPI (unknown) (no (unknown) (unknown) ALT (<35) IU/L (units (unknown) date) unknown) (unknown) (no (unknown) (unknown) ALT 48 H (<35) (units (unknown) date) IU/L unknown) (unknown) (no (unknown) (unknown) AST (14-36) IU/L (units (unknown) date) unknown) (unknown) (no (unknown) (unknown) AST 36 (14-36) (units (unknown) date) IU/L unknown) (unknown) (no (unknown) (unknown) Acetaminophen < 10 (units (unknown) date) (10-30) ug/mL unknown) (unknown) (no (unknown) (unknown) Acetaminophen (units ( unknown) date) (10-30) ug/mL unknown) (unknown) (no (unknown) (unknown) Acetaminophen (units ( unknown) date) (Acetaminophen 325 unknown) Mg Tablet) 650 mg PO NOW ONE (unknown) (no (unknown) (unknown) Age/Sex: 31 / F (units (unknown) date) unknown) (unknown) (no (unknown) (unknown) Albumin (3.5-5.0) (units (unknown) date) g/dL unknown) (unknown) (no (unknown) (unknown) Albumin 4.8 (units (un known) date) (3.5-5.0) g/dL unknown) (unknown) (no (unknown) (unknown) Albumin/Globulin (units (unknown) date) Ratio (1.0-2.8) unknown) (unknown) (no (unknown) (unknown) Albumin/Globulin (units (unknown) date) Ratio 1.4 (1.0-2.8) unknown) (unknown) (no (unknown) (unknown) Alkaline (units (unkno wn) date) Phosphatase unknown) (38-126) U/L (unknown) (no (unknown) (unknown) Alkaline (units (unkno wn) date) Phosphatase 110 unknown) (38-126) U/L (unknown) (no (unknown) (unknown) Allergies (units (unkn own) date) unknown) (unknown) (no (unknown) (unknown) Allergy/AdvReac (units (unknown) date) Type Severity unknown) Reaction Status Date / Time (unknown) (no (unknown) (unknown) BUN (7-17) mg/dL (units (unknown) date) unknown) (unknown) (no (unknown) (unknown) BUN 11 (7-17) (units ( unknown) date) mg/dL unknown) (unknown) (no (unknown) (unknown) BUN/Creatinine (units (unknown) date) Ratio (6-22) unknown) (unknown) (no (unknown) (unknown) BUN/Creatinine (units (unknown) date) Ratio 16.4 (6-22) unknown) (unknown) (no (unknown) (unknown) Baso # (Auto) (units ( unknown) date) (0-100) /uL unknown) (unknown) (no (unknown) (unknown) Baso # (Auto) 100 (units (unknown) date) (0-100) /uL unknown) (unknown) (no (unknown) (unknown) Baso % (Auto) (units ( unknown) date) (0-2) % unknown) (unknown) (no (unknown) (unknown) Baso % (Auto) 1.1 (units (unknown) date) (0-2) % unknown) (unknown) (no (unknown) (unknown) Bedside Urine (units ( unknown) date) Bilirubin - unknown) Negative (unknown) (no (unknown) (unknown) Bedside Urine (units ( unknown) date) Glucose Negative unknown) (unknown) (no (unknown) (unknown) Bedside Urine (units ( unknown) date) Ketone - Negative unknown) (unknown) (no (unknown) (unknown) Bedside Urine (units ( unknown) date) Leukocytes - unknown) Negative (unknown) (no (unknown) (unknown) Bedside Urine (units ( unknown) date) Nitrite - Negative unknown) (unknown) (no (unknown) (unknown) Bedside Urine (units ( unknown) date) Occult Blood - unknown) Negative (unknown) (no (unknown) (unknown) Bedside Urine (units ( unknown) date) Protein - Negative unknown) (unknown) (no (unknown) (unknown) Bedside Urine (units ( unknown) date) Urobilinogen - unknown) Negative (unknown) (no (unknown) (unknown) Blood Pressure (units (unknown) date) 132/68 109/72 unknown) 121/80 (unknown) (no (unknown) (unknown) Blood Pressure (units (unknown) date) 137/88 12/19/21 unknown) 21:00 (unknown) (no (unknown) (unknown) CARDIOVASCULAR: (units (unknown) date) Denies chest pain, unknown) palpitations (unknown) (no (unknown) (unknown) CARDIOVASCULAR: (units (unknown) date) peripheral pulses unknown) in tact, cap refill <2 sec (unknown) (no (unknown) (unknown) COVID19 -Nasal (units (unknown) date) RAPID/Pre-Proc Stat unknown) (unknown) (no (unknown) (unknown) Calcium (8.4-10.2) (units (unknown) date) mg/dL unknown) (unknown) (no (unknown) (unknown) Calcium 9.4 (units (un known) date) (8.4-10.2) mg/dL unknown) (unknown) (no (unknown) (unknown) Carbon Dioxide (units (unknown) date) (22-32) mmol/L unknown) (unknown) (no (unknown) (unknown) Carbon Dioxide 22 (units (unknown) date) (22-32) mmol/L unknown) (unknown) (no (unknown) (unknown) Chief Complaint: (units (unknown) date) Psychiatric unknown) Symptoms (unknown) (no (unknown) (unknown) Chloride (98-107) (units (unknown) date) mmol/L unknown) (unknown) (no (unknown) (unknown) Chloride 104 (units (u nknown) date) (98-107) mmol/L unknown) (unknown) (no (unknown) (unknown) Clinical (units (unkno wn) date) Impression: unknown) (unknown) (no (unknown) (unknown) Course (units (unkno wn) date) unknown) (unknown) (no (unknown) (unknown) Creatinine (units (unk nown) date) (0.52-1.04) mg/dL unknown) (unknown) (no (unknown) (unknown) Creatinine 0.67 (units (unknown) date) (0.52-1.04) mg/dL unknown) (unknown) (no (unknown) (unknown) : 1990 (units (unknown) date) Acct:[id number] unknown) (unknown) (no (unknown) (unknown) Date of Service: (units (unknown) date) 12/19/21 unknown) (unknown) (no (unknown) (unknown) Departure (units (unkn own) date) unknown) (unknown) (no (unknown) (unknown) Discharge Plan (units (unknown) date) unknown) (unknown) (no (unknown) (unknown) Discontinued (units (u nknown) date) Medications unknown) (unknown) (no (unknown) (unknown) Documented By: ADK (units (unknown) date) unknown) (unknown) (no (unknown) (unknown) Documented By: RLS (units (unknown) date) unknown) (unknown) (no (unknown) (unknown) ED Orders (units (unkn own) date) unknown) (unknown) (no (unknown) (unknown) ER Physician: (units ( unknown) date) Dionna Ramos D.O. unknown) (unknown) (no (unknown) (unknown) EXTREMITIES: (units (u nknown) date) Normal range of unknown) motion, no clubbing or edema. Neurovascularly (unknown) (no (unknown) (unknown) Emergency Report (units (unknown) date) unknown) (unknown) (no (unknown) (unknown) Eos # (Auto) (units (u nknown) date) (0-450) /uL unknown) (unknown) (no (unknown) (unknown) Eos # (Auto) 200 (units (unknown) date) (0-450) /uL unknown) (unknown) (no (unknown) (unknown) Eos % (Auto) (2-4) (units (unknown) date) % unknown) (unknown) (no (unknown) (unknown) Eos % (Auto) 3.0 (units (unknown) date) (2-4) % unknown) (unknown) (no (unknown) (unknown) Esterase (units (unkno wn) date) unknown) (unknown) (no (unknown) (unknown) Estimated GFR > 60 (units (unknown) date) (>60) mL/min unknown) (unknown) (no (unknown) (unknown) Estimated GFR (units ( unknown) date) (>60) mL/min unknown) (unknown) (no (unknown) (unknown) Ethyl Alcohol < 10 (units (unknown) date) ( - 10) mg/dL unknown) (unknown) (no (unknown) (unknown) Ethyl Alcohol ( - (units (unknown) date) 10) mg/dL unknown) (unknown) (no (unknown) (unknown) Exam (units (unkno wn) date) unknown) (unknown) (no (unknown) (unknown) Free T4 (units (unkno wn) date) (0.78-2.19) ng/dL unknown) (unknown) (no (unknown) (unknown) Free T4 1.26 (units (u nknown) date) (0.78-2.19) ng/dL unknown) (unknown) (no (unknown) (unknown) GASTROINTESTINAL: (units (unknown) date) Denies nausea, unknown) vomiting (unknown) (no (unknown) (unknown) GENERAL: Denies (units (unknown) date) chills,fever unknown) (unknown) (no (unknown) (unknown) GENERAL: Tearful (units (unknown) date) 31-year-old female unknown) (unknown) (no (unknown) (unknown) General (units (unkno wn) date) unknown) (unknown) (no (unknown) (unknown) Globulin (1.7-4.1) (units (unknown) date) g/dL unknown) (unknown) (no (unknown) (unknown) Globulin 3.5 (units (u nknown) date) (1.7-4.1) g/dL unknown) (unknown) (no (unknown) (unknown) Glucose (70-100) (units (unknown) date) mg/dL unknown) (unknown) (no (unknown) (unknown) Glucose 111 H (units ( unknown) date) (70-100) mg/dL unknown) (unknown) (no (unknown) (unknown) HEENT: Denies (units ( unknown) date) throat pain unknown) (unknown) (no (unknown) (unknown) HPI - Psych (units (un known) date) unknown) (unknown) (no (unknown) (unknown) HPI Narrative: (units (unknown) date) unknown) (unknown) (no (unknown) (unknown) Hct (36-46) % (units ( unknown) date) unknown) (unknown) (no (unknown) (unknown) Hct 35.6 L (36-46) (units (unknown) date) % unknown) (unknown) (no (unknown) (unknown) Hgb (12.0-16.0) (units (unknown) date) g/dL unknown) (unknown) (no (unknown) (unknown) Hgb 12.6 (units (unkno wn) date) (12.0-16.0) g/dL unknown) (unknown) (no (unknown) (unknown) History of Present (units (unknown) date) Illness unknown) (unknown) (no (unknown) (unknown) Initial Vital (units ( unknown) date) Signs unknown) (unknown) (no (unknown) (unknown) Initial Vital (units ( unknown) date) Signs: unknown) (unknown) (no (unknown) (unknown) [facility] (units (unknown) date) [address] unknown) [place] [address] (unknown) (no (unknown) (unknown) Lab Data (units (unkno wn) date) unknown) (unknown) (no (unknown) (unknown) Lab Results (units (un known) date) unknown) (unknown) (no (unknown) (unknown) Labs: (units (unkno wn) date) unknown) (unknown) (no (unknown) (unknown) Last Admin: (units (un known) date) 12/20/21 12:34 unknown) Dose: 650 mg (unknown) (no (unknown) (unknown) Last Admin: (units (un known) date) 12/20/21 14:19 unknown) Dose: 1 mg (unknown) (no (unknown) (unknown) Lorazepam (units (unkn own) date) (Lorazepam 0.5 Mg unknown) Tablet) 1 mg PO NOW ONE (unknown) (no (unknown) (unknown) Lymph # (Auto) (units (unknown) date) (1697-3488) /uL unknown) (unknown) (no (unknown) (unknown) Lymph # (Auto) (units (unknown) date) 2400 (5539-1815) unknown) /uL (unknown) (no (unknown) (unknown) Lymph % (Auto) (units (unknown) date) (25-40) % unknown) (unknown) (no (unknown) (unknown) Lymph % (Auto) (units (unknown) date) 37.0 (25-40) % unknown) (unknown) (no (unknown) (unknown) MCH (26-34) PG (units (unknown) date) unknown) (unknown) (no (unknown) (unknown) MCH 30.2 (26-34) (units (unknown) date) PG unknown) (unknown) (no (unknown) (unknown) MCHC (30-36) % (units (unknown) date) unknown) (unknown) (no (unknown) (unknown) MCHC 35.4 (30-36) (units (unknown) date) % unknown) (unknown) (no (unknown) (unknown) MCV (80-100) fL (units (unknown) date) unknown) (unknown) (no (unknown) (unknown) MCV 85.3 (80-100) (units (unknown) date) fL unknown) (unknown) (no (unknown) (unknown) MDM - Psych (units (un known) date) unknown) (unknown) (no (unknown) (unknown) MDM Narrative (units ( unknown) date) unknown) (unknown) (no (unknown) (unknown) MUSCULOSKELETAL: (units (unknown) date) Denies extremity unknown) pain, injury (unknown) (no (unknown) (unknown) Medical decision (units (unknown) date) making narrative: unknown) (unknown) (no (unknown) (unknown) Mode of arrival: (units (unknown) date) Ambulatory unknown) (unknown) (no (unknown) (unknown) [place] # (Auto) (units ( unknown) date) (0-900) /uL unknown) (unknown) (no (unknown) (unknown) [place] # (Auto) 400 (units (unknown) date) (0-900) /uL unknown) (unknown) (no (unknown) (unknown) [place] % (Auto) (units ( unknown) date) (3-14) % unknown) (unknown) (no (unknown) (unknown) [place] % (Auto) 6.8 (units (unknown) date) (3-14) % unknown) (unknown) (no (unknown) (unknown) NEUROLOGIC: Denies (units (unknown) date) weakness, unknown) dizziness, headache, numbness (unknown) (no (unknown) (unknown) NEUROLOGICAL: (units ( unknown) date) Cranial nerves II unknown) through XII grossly intact. Normal gait and (unknown) (no (unknown) (unknown) Narrative: (units (unk nown) date) unknown) (unknown) (no (unknown) (unknown) Neut # (Auto) (units ( unknown) date) (2206-6182) /uL unknown) (unknown) (no (unknown) (unknown) Neut # (Auto) 3300 (units (unknown) date) (4048-2267) /uL unknown) (unknown) (no (unknown) (unknown) Neut % (Auto) (units ( unknown) date) (50-75) % unknown) (unknown) (no (unknown) (unknown) Neut % (Auto) 52.1 (units (unknown) date) (50-75) % unknown) (unknown) (no (unknown) (unknown) Ordered: (units (unkno wn) date) unknown) (unknown) (no (unknown) (unknown) Orders (units (unkno wn) date) unknown) (unknown) (no (unknown) (unknown) Oxygen Delivery (units (unknown) date) Method 12/19/21 unknown) 21:00 (unknown) (no (unknown) (unknown) Oxygen Delivery (units (unknown) date) Method Room Air unknown) Room Air Room Air (unknown) (no (unknown) (unknown) Patient (units (unkno wn) date) Disposition: Xfer unknown) [facility] (unknown) (no (unknown) (unknown) Patient History (units (unknown) date) unknown) (unknown) (no (unknown) (unknown) Patient currently (units (unknown) date) is voluntary. To unknown) [facility] evaluation with (unknown) (no (unknown) (unknown) Patient is a (units (un known) date) healthy 31-year-old unknown) female within infant 2-month-old and (unknown) (no (unknown) (unknown) Patient signed out (units (unknown) date) to Dr. Ramos for unknown) further evaluation management and disposition (unknown) (no (unknown) (unknown) Patient: (units (unkno wn) date) Jaelyn Clayton unknown) MR#: M (unknown) (no (unknown) (unknown) Plt Count (units (unkn own) date) (150-400) X103/uL unknown) (unknown) (no (unknown) (unknown) Plt Count 264 (units ( unknown) date) (150-400) X103/uL unknown) (unknown) (no (unknown) (unknown) Point of Care (units ( unknown) date) Testing unknown) (unknown) (no (unknown) (unknown) Potassium (units (unkn own) date) (3.4-5.1) mmol/L unknown) (unknown) (no (unknown) (unknown) Potassium 3.7 (units ( unknown) date) (3.4-5.1) mmol/L unknown) (unknown) (no (unknown) (unknown) Test (units (unknown) date) Results Negative unknown) (unknown) (no (unknown) (unknown) Provider,Mee (units (unknown) date) REYNALDO [Primary Care unknown) Provider] (unknown) (no (unknown) (unknown) Psychiatric (units (un known) date) unknown) (unknown) (no (unknown) (unknown) Psychiatric: (units (u nknown) date) Reports system unknown) reviewed and no additional complaints, except as (unknown) (no (unknown) (unknown) Pulse Oximetry 97 (units (unknown) date) 12/19/21 21:00 unknown) (unknown) (no (unknown) (unknown) Pulse Oximetry 98 (units (unknown) date) 96 97 unknown) (unknown) (no (unknown) (unknown) Pulse Rate 78 72 (units (unknown) date) 79 unknown) (unknown) (no (unknown) (unknown) Pulse Rate 81 (units ( unknown) date) 12/19/21 21:00 unknown) (unknown) (no (unknown) (unknown) RBC (4.0-5.2) (units ( unknown) date) X106/uL unknown) (unknown) (no (unknown) (unknown) RBC 4.17 (4.0-5.2) (units (unknown) date) X106/uL unknown) (unknown) (no (unknown) (unknown) RDW (11.6-14.8) % (units (unknown) date) unknown) (unknown) (no (unknown) (unknown) RDW 13.2 (units (unkno wn) date) (11.6-14.8) % unknown) (unknown) (no (unknown) (unknown) RESPIRATORY: (units (u nknown) date) Denies dyspnea, unknown) cough, wheezing (unknown) (no (unknown) (unknown) RESPIRATORY: No (units (unknown) date) respiratory unknown) distress, speaks in full sentences without (unknown) (no (unknown) (unknown) Referrals: (units (unk nown) date) unknown) (unknown) (no (unknown) (unknown) Related Data (units (u nknown) date) unknown) (unknown) (no (unknown) (unknown) Respiratory Rate (units (unknown) date) 15 18 unknown) (unknown) (no (unknown) (unknown) Respiratory Rate (units (unknown) date) 22 12/19/21 21:00 unknown) (unknown) (no (unknown) (unknown) Result diagrams: (units (unknown) date) unknown) (unknown) (no (unknown) (unknown) Review of Systems (units (unknown) date) unknown) (unknown) (no (unknown) (unknown) SARS-CoV-2 (PCR) (units (unknown) date) (Negative) unknown) (unknown) (no (unknown) (unknown) SARS-CoV-2 (PCR) (units (unknown) date) Negative (Negative) unknown) (unknown) (no (unknown) (unknown) SKIN: No rash, no (units (unknown) date) laceration, no unknown) pruritus (unknown) (no (unknown) (unknown) SKIN: Warm, dry, (units (unknown) date) no petechiae, no unknown) rashes or lesions. (unknown) (no (unknown) (unknown) Salicylates < 1.0 (units (unknown) date) (<20) mg/dL unknown) (unknown) (no (unknown) (unknown) Salicylates (<20) (units (unknown) date) mg/dL unknown) (unknown) (no (unknown) (unknown) Signed By: (units (unk nown) date) unknown) (unknown) (no (unknown) (unknown) Smoking Status: (units (unknown) date) Never smoker unknown) (unknown) (no (unknown) (unknown) Social History (units (unknown) date) (Reviewed 12/20/21 unknown) @ 06:36 by Ioana Hendrickson DO) (unknown) (no (unknown) (unknown) Sodium (137-145) (units (unknown) date) mmol/L unknown) (unknown) (no (unknown) (unknown) Sodium 138 (units (unk nown) date) (137-145) mmol/L unknown) (unknown) (no (unknown) (unknown) Source: patient (units (unknown) date) unknown) (unknown) (no (unknown) (unknown) Stated Complaint: (units (unknown) date) Needs to be seen, unknown) sent by [employer] (unknown) (no (unknown) (unknown) Stop: 12/20/21 (units (unknown) date) 12:32 unknown) (unknown) (no (unknown) (unknown) Stop: 12/20/21 (units (unknown) date) 13:54 unknown) (unknown) (no (unknown) (unknown) Suicidal ideation (units (unknown) date) unknown) (unknown) (no (unknown) (unknown) TSH (0.47-4.68) (units (unknown) date) uIU/mL unknown) (unknown) (no (unknown) (unknown) TSH 1.23 (units (unkno wn) date) (0.47-4.68) uIU/mL unknown) (unknown) (no (unknown) (unknown) Temperature 97.8 F (units (unknown) date) 12/19/21 21:00 unknown) (unknown) (no (unknown) (unknown) Time Seen by (units (u nknown) date) Provider: 12/20/21 unknown) 06:22 (unknown) (no (unknown) (unknown) Total Bilirubin (units (unknown) date) (0.2-1.3) mg/dL unknown) (unknown) (no (unknown) (unknown) Total Bilirubin (units (unknown) date) 0.6 (0.2-1.3) mg/dL unknown) (unknown) (no (unknown) (unknown) Total Protein (units ( unknown) date) (6.3-8.2) g/dL unknown) (unknown) (no (unknown) (unknown) Total Protein 8.3 (units (unknown) date) H (6.3-8.2) g/dL unknown) (unknown) (no (unknown) (unknown) U Benzodiazepines (units (unknown) date) Scrn (Negative) unknown) (unknown) (no (unknown) (unknown) U Benzodiazepines (units (unknown) date) Scrn Negative unknown) (Negative) (unknown) (no (unknown) (unknown) U Marijuana (THC) (units (unknown) date) Screen (Negative) unknown) (unknown) (no (unknown) (unknown) U Marijuana (THC) (units (unknown) date) Screen Negative unknown) (Negative) (unknown) (no (unknown) (unknown) U Methamphetamines (units (unknown) date) Scrn (Negative) unknown) (unknown) (no (unknown) (unknown) U Methamphetamines (units (unknown) date) Scrn Negative unknown) (Negative) (unknown) (no (unknown) (unknown) U Opiates 300ng/mL (units (unknown) date) cut (Negative) unknown) (unknown) (no (unknown) (unknown) U Opiates 300ng/mL (units (unknown) date) cut Negative unknown) (Negative) (unknown) (no (unknown) (unknown) U Tricyclic (units (un known) date) Antidepress unknown) (Negative) (unknown) (no (unknown) (unknown) U Tricyclic (units (un known) date) Antidepress unknown) Negative (Negative) (unknown) (no (unknown) (unknown) Ur Amphetamines (units (unknown) date) Screen (Negative) unknown) (unknown) (no (unknown) (unknown) Ur Amphetamines (units (unknown) date) Screen Negative unknown) (Negative) (unknown) (no (unknown) (unknown) Ur Barbiturates (units (unknown) date) Screen (Negative) unknown) (unknown) (no (unknown) (unknown) Ur Barbiturates (units (unknown) date) Screen Negative unknown) (Negative) (unknown) (no (unknown) (unknown) Ur MDMA Scrn (units (u nknown) date) (Ecstasy) unknown) (Negative) (unknown) (no (unknown) (unknown) Ur MDMA Scrn (units (u nknown) date) (Ecstasy) Negative unknown) (Negative) (unknown) (no (unknown) (unknown) Ur Oxycodone (units (u nknown) date) Screen (Negative) unknown) (unknown) (no (unknown) (unknown) Ur Oxycodone (units (u nknown) date) Screen Negative unknown) (Negative) (unknown) (no (unknown) (unknown) Ur Phencyclidine (units (unknown) date) Scrn (Negative) unknown) (unknown) (no (unknown) (unknown) Ur Phencyclidine (units (unknown) date) Scrn Negative unknown) (Negative) (unknown) (no (unknown) (unknown) Urine Cocaine (units ( unknown) date) Screen (Negative) unknown) (unknown) (no (unknown) (unknown) Urine Cocaine (units ( unknown) date) Screen Negative unknown) (Negative) (unknown) (no (unknown) (unknown) Urine Dip (units (unkn own) date) unknown) (unknown) (no (unknown) (unknown) Urine Methadone (units (unknown) date) Screen (Negative) unknown) (unknown) (no (unknown) (unknown) Urine Methadone (units (unknown) date) Screen Negative unknown) (Negative) (unknown) (no (unknown) (unknown) Vital Signs - 8 hr (units (unknown) date) unknown) (unknown) (no (unknown) (unknown) Vital Signs (units (un known) date) unknown) (unknown) (no (unknown) (unknown) Vital signs: (units (u nknown) date) unknown) (unknown) (no (unknown) (unknown) WBC (4.5-11.0) (units (unknown) date) X103/uL unknown) (unknown) (no (unknown) (unknown) WBC 6.4 (4.5-11.0) (units (unknown) date) X103/uL unknown) (unknown) (no (unknown) (unknown) [Embedded Image (units (unknown) date) Not Available] unknown) (unknown) (no (unknown) (unknown) a 5-year-old (units (u nknown) date) presenting today unknown) with suicidal ideations. States that she has (unknown) (no (unknown) (unknown) alcohol intake (units (unknown) date) frequency: 0-2 unknown) drinks per day (unknown) (no (unknown) (unknown) are multiple guns (units (unknown) date) at home. She does unknown) not want to hurt her children however he (unknown) (no (unknown) (unknown) difficulty (units (unk nown) date) unknown) (unknown) (no (unknown) (unknown) documented, Denies (units (unknown) date) homicidal ideation unknown) and Reports suicidal ideation (unknown) (no (unknown) (unknown) feelings got even (units (unknown) date) worse. She says she unknown) does not trust herself at home. There (unknown) (no (unknown) (unknown) gluten Allergy (units (unknown) date) Intermediate Hives unknown) Verified 12/20/21 06:35 (unknown) (no (unknown) (unknown) intact (units (unkno wn) date) unknown) (unknown) (no (unknown) (unknown) just feels like (units (unknown) date) she does not want unknown) to live. She does not want to feel this way (unknown) (no (unknown) (unknown) probable (units (unkno wn) date) placement. Patient unknown) does have [id number] here now for temporary help (unknown) (no (unknown) (unknown) she does not know (units (unknown) date) why she is feeling unknown) this way. She does not trust herself. (unknown) (no (unknown) (unknown) speech. (units (unkno wn) date) unknown) (unknown) (no (unknown) (unknown) started feeling (units (unknown) date) this way for a unknown) couple of weeks. Stating that she just does not (unknown) (no (unknown) (unknown) want to live. Her (units (unknown) date) deployed unknown) last week [place] ([place]) (no (unknown) (unknown) with children. She (units (unknown) date) does have a couple unknown) with friends. 1 is here now. Result panel 11 (unknown) (no (unknown) (unknown) (no value) (units (unk nown) date) unknown) (unknown) (no (unknown) (unknown) <Electronically (units (unknown) date) signed by Dionna borges) Malini Ramos> (unknown) (no (unknown) (unknown) <Ioana Hendrickson, (units (unknown) date) DO - Last Filed: unknown) 12/20/21 06:37> (unknown) (no (unknown) (unknown) <Dionna Ramos DO (units (unknown) date) - Last Filed: unknown) 12/20/21 17:59> (unknown) (no (unknown) (unknown) [id number] (units (unkn own) date) unknown) (unknown) (no (unknown) (unknown) 12/19/21 12/19/21 (units (unknown) date) 12/19/21 unknown) Range/Units (unknown) (no (unknown) (unknown) 12/19/21 12/20/21 (units (unknown) date) Range/Units unknown) (unknown) (no (unknown) (unknown) 12/19/21 21:44 (units (unknown) date) unknown) (unknown) (no (unknown) (unknown) 12/20/21 12:23 (units (unknown) date) unknown) (unknown) (no (unknown) (unknown) 12/20/21 1759 (units ( unknown) date) unknown) (unknown) (no (unknown) (unknown) 12/20/21 Richard: (units (unknown) date) Patient signed out unknown) to myself by Dr. Hendrickson. Patient has been (unknown) (no (unknown) (unknown) 12/20/21 (units (unkno wn) date) unknown) (unknown) (no (unknown) (unknown) 13:00 12/20/21 (units (unknown) date) unknown) (unknown) (no (unknown) (unknown) 15:46 12/20/21 (units (unknown) date) unknown) (unknown) (no (unknown) (unknown) 17:37 (units (unkno wn) date) unknown) (unknown) (no (unknown) (unknown) 21:44 21:44 21:44 (units (unknown) date) unknown) (unknown) (no (unknown) (unknown) 22:35 12:23 (units (un known) date) unknown) (unknown) (no (unknown) (unknown) 8 point review of (units (unknown) date) systems is negative unknown) except for those stated above and HPI (unknown) (no (unknown) (unknown) ALT (<35) IU/L (units (unknown) date) unknown) (unknown) (no (unknown) (unknown) ALT 48 H (<35) (units (unknown) date) IU/L unknown) (unknown) (no (unknown) (unknown) AST (14-36) IU/L (units (unknown) date) unknown) (unknown) (no (unknown) (unknown) AST 36 (14-36) (units (unknown) date) IU/L unknown) (unknown) (no (unknown) (unknown) Acetaminophen < 10 (units (unknown) date) (10-30) ug/mL unknown) (unknown) (no (unknown) (unknown) Acetaminophen (units ( unknown) date) (10-30) ug/mL unknown) (unknown) (no (unknown) (unknown) Acetaminophen (units ( unknown) date) (Acetaminophen 325 unknown) Mg Tablet) 650 mg PO NOW ONE (unknown) (no (unknown) (unknown) Age/Sex: 31 / F (units (unknown) date) unknown) (unknown) (no (unknown) (unknown) Albumin (3.5-5.0) (units (unknown) date) g/dL unknown) (unknown) (no (unknown) (unknown) Albumin 4.8 (units (un known) date) (3.5-5.0) g/dL unknown) (unknown) (no (unknown) (unknown) Albumin/Globulin (units (unknown) date) Ratio (1.0-2.8) unknown) (unknown) (no (unknown) (unknown) Albumin/Globulin (units (unknown) date) Ratio 1.4 (1.0-2.8) unknown) (unknown) (no (unknown) (unknown) Alkaline (units (unkno wn) date) Phosphatase unknown) (38-126) U/L (unknown) (no (unknown) (unknown) Alkaline (units (unkno wn) date) Phosphatase 110 unknown) (38-126) U/L (unknown) (no (unknown) (unknown) Allergies (units (unkn own) date) unknown) (unknown) (no (unknown) (unknown) Allergy/AdvReac (units (unknown) date) Type Severity unknown) Reaction Status Date / Time (unknown) (no (unknown) (unknown) BUN (7-17) mg/dL (units (unknown) date) unknown) (unknown) (no (unknown) (unknown) BUN 11 (7-17) (units ( unknown) date) mg/dL unknown) (unknown) (no (unknown) (unknown) BUN/Creatinine (units (unknown) date) Ratio (6-22) unknown) (unknown) (no (unknown) (unknown) BUN/Creatinine (units (unknown) date) Ratio 16.4 (6-22) unknown) (unknown) (no (unknown) (unknown) Baso # (Auto) (units ( unknown) date) (0-100) /uL unknown) (unknown) (no (unknown) (unknown) Baso # (Auto) 100 (units (unknown) date) (0-100) /uL unknown) (unknown) (no (unknown) (unknown) Baso % (Auto) (units ( unknown) date) (0-2) % unknown) (unknown) (no (unknown) (unknown) Baso % (Auto) 1.1 (units (unknown) date) (0-2) % unknown) (unknown) (no (unknown) (unknown) Bedside Urine (units ( unknown) date) Bilirubin - unknown) Negative (unknown) (no (unknown) (unknown) Bedside Urine (units ( unknown) date) Glucose Negative unknown) (unknown) (no (unknown) (unknown) Bedside Urine (units ( unknown) date) Ketone - Negative unknown) (unknown) (no (unknown) (unknown) Bedside Urine (units ( unknown) date) Leukocytes - unknown) Negative (unknown) (no (unknown) (unknown) Bedside Urine (units ( unknown) date) Nitrite - Negative unknown) (unknown) (no (unknown) (unknown) Bedside Urine (units ( unknown) date) Occult Blood - unknown) Negative (unknown) (no (unknown) (unknown) Bedside Urine (units ( unknown) date) Protein - Negative unknown) (unknown) (no (unknown) (unknown) Bedside Urine (units ( unknown) date) Urobilinogen - unknown) Negative (unknown) (no (unknown) (unknown) Blood Pressure (units (unknown) date) 132/68 109/72 unknown) 121/80 (unknown) (no (unknown) (unknown) Blood Pressure (units (unknown) date) 137/88 12/19/21 unknown) 21:00 (unknown) (no (unknown) (unknown) CARDIOVASCULAR: (units (unknown) date) Denies chest pain, unknown) palpitations (unknown) (no (unknown) (unknown) CARDIOVASCULAR: (units (unknown) date) peripheral pulses unknown) in tact, cap refill <2 sec (unknown) (no (unknown) (unknown) COVID19 -Nasal (units (unknown) date) RAPID/Pre-Proc Stat unknown) (unknown) (no (unknown) (unknown) Calcium (8.4-10.2) (units (unknown) date) mg/dL unknown) (unknown) (no (unknown) (unknown) Calcium 9.4 (units (un known) date) (8.4-10.2) mg/dL unknown) (unknown) (no (unknown) (unknown) Carbon Dioxide (units (unknown) date) (22-32) mmol/L unknown) (unknown) (no (unknown) (unknown) Carbon Dioxide 22 (units (unknown) date) (22-32) mmol/L unknown) (unknown) (no (unknown) (unknown) Chief Complaint: (units (unknown) date) Psychiatric unknown) Symptoms (unknown) (no (unknown) (unknown) Chloride (98-107) (units (unknown) date) mmol/L unknown) (unknown) (no (unknown) (unknown) Chloride 104 (units (u nknown) date) (98-107) mmol/L unknown) (unknown) (no (unknown) (unknown) Clinical (units (unkno wn) date) Impression: unknown) (unknown) (no (unknown) (unknown) Course (units (unkno wn) date) unknown) (unknown) (no (unknown) (unknown) Creatinine (units (unk nown) date) (0.52-1.04) mg/dL unknown) (unknown) (no (unknown) (unknown) Creatinine 0.67 (units (unknown) date) (0.52-1.04) mg/dL unknown) (unknown) (no (unknown) (unknown) : 1990 (units (unknown) date) Acct:[id number] unknown) (unknown) (no (unknown) (unknown) Date of Service: (units (unknown) date) 12/19/21 unknown) (unknown) (no (unknown) (unknown) Departure (units (unkn own) date) unknown) (unknown) (no (unknown) (unknown) Discharge Plan (units (unknown) date) unknown) (unknown) (no (unknown) (unknown) Discontinued (units (u nknown) date) Medications unknown) (unknown) (no (unknown) (unknown) Documented By: ADK (units (unknown) date) unknown) (unknown) (no (unknown) (unknown) Documented By: RLS (units (unknown) date) unknown) (unknown) (no (unknown) (unknown) ED Orders (units (unkn own) date) unknown) (unknown) (no (unknown) (unknown) ER Physician: (units ( unknown) date) Dionna Ramos D.O. unknown) (unknown) (no (unknown) (unknown) EXTREMITIES: (units (u nknown) date) Normal range of unknown) motion, no clubbing or edema. Neurovascularly (unknown) (no (unknown) (unknown) Emergency Report (units (unknown) date) unknown) (unknown) (no (unknown) (unknown) Eos # (Auto) (units (u nknown) date) (0-450) /uL unknown) (unknown) (no (unknown) (unknown) Eos # (Auto) 200 (units (unknown) date) (0-450) /uL unknown) (unknown) (no (unknown) (unknown) Eos % (Auto) (2-4) (units (unknown) date) % unknown) (unknown) (no (unknown) (unknown) Eos % (Auto) 3.0 (units (unknown) date) (2-4) % unknown) (unknown) (no (unknown) (unknown) Esterase (units (unkno wn) date) unknown) (unknown) (no (unknown) (unknown) Estimated GFR > 60 (units (unknown) date) (>60) mL/min unknown) (unknown) (no (unknown) (unknown) Estimated GFR (units ( unknown) date) (>60) mL/min unknown) (unknown) (no (unknown) (unknown) Ethyl Alcohol < 10 (units (unknown) date) ( - 10) mg/dL unknown) (unknown) (no (unknown) (unknown) Ethyl Alcohol ( - (units (unknown) date) 10) mg/dL unknown) (unknown) (no (unknown) (unknown) Exam (units (unkno wn) date) unknown) (unknown) (no (unknown) (unknown) Free T4 (units (unkno wn) date) (0.78-2.19) ng/dL unknown) (unknown) (no (unknown) (unknown) Free T4 1.26 (units (u nknown) date) (0.78-2.19) ng/dL unknown) (unknown) (no (unknown) (unknown) GASTROINTESTINAL: (units (unknown) date) Denies nausea, unknown) vomiting (unknown) (no (unknown) (unknown) GENERAL: Denies (units (unknown) date) chills,fever unknown) (unknown) (no (unknown) (unknown) GENERAL: Tearful (units (unknown) date) 31-year-old female unknown) (unknown) (no (unknown) (unknown) General (units (unkno wn) date) unknown) (unknown) (no (unknown) (unknown) Globulin (1.7-4.1) (units (unknown) date) g/dL unknown) (unknown) (no (unknown) (unknown) Globulin 3.5 (units (u nknown) date) (1.7-4.1) g/dL unknown) (unknown) (no (unknown) (unknown) Glucose (70-100) (units (unknown) date) mg/dL unknown) (unknown) (no (unknown) (unknown) Glucose 111 H (units ( unknown) date) (70-100) mg/dL unknown) (unknown) (no (unknown) (unknown) HEENT: Denies (units ( unknown) date) throat pain unknown) (unknown) (no (unknown) (unknown) HPI - Psych (units (un known) date) unknown) (unknown) (no (unknown) (unknown) HPI Narrative: (units (unknown) date) unknown) (unknown) (no (unknown) (unknown) Hct (36-46) % (units ( unknown) date) unknown) (unknown) (no (unknown) (unknown) Hct 35.6 L (36-46) (units (unknown) date) % unknown) (unknown) (no (unknown) (unknown) Hgb (12.0-16.0) (units (unknown) date) g/dL unknown) (unknown) (no (unknown) (unknown) Hgb 12.6 (units (unkno wn) date) (12.0-16.0) g/dL unknown) (unknown) (no (unknown) (unknown) History of Present (units (unknown) date) Illness unknown) (unknown) (no (unknown) (unknown) Initial Vital (units ( unknown) date) Signs unknown) (unknown) (no (unknown) (unknown) Initial Vital (units ( unknown) date) Signs: unknown) (unknown) (no (unknown) (unknown) [facility] (units (unknown) date) [address] [place] [address] unknown) [place] [address] (unknown) (no (unknown) (unknown) Lab Data (units (unkno wn) date) unknown) (unknown) (no (unknown) (unknown) Lab Results (units (un known) date) unknown) (unknown) (no (unknown) (unknown) Labs: (units (unkno wn) date) unknown) (unknown) (no (unknown) (unknown) Last Admin: (units (un known) date) 12/20/21 12:34 unknown) Dose: 650 mg (unknown) (no (unknown) (unknown) Last Admin: (units (un known) date) 12/20/21 14:19 unknown) Dose: 1 mg (unknown) (no (unknown) (unknown) Lorazepam (units (unkn own) date) (Lorazepam 0.5 Mg unknown) Tablet) 1 mg PO NOW ONE (unknown) (no (unknown) (unknown) Lymph # (Auto) (units (unknown) date) (1835-2074) /uL unknown) (unknown) (no (unknown) (unknown) Lymph # (Auto) (units (unknown) date) 2400 (2358-0507) unknown) /uL (unknown) (no (unknown) (unknown) Lymph % (Auto) (units (unknown) date) (25-40) % unknown) (unknown) (no (unknown) (unknown) Lymph % (Auto) (units (unknown) date) 37.0 (25-40) % unknown) (unknown) (no (unknown) (unknown) MCH (26-34) PG (units (unknown) date) unknown) (unknown) (no (unknown) (unknown) MCH 30.2 (26-34) (units (unknown) date) PG unknown) (unknown) (no (unknown) (unknown) MCHC (30-36) % (units (unknown) date) unknown) (unknown) (no (unknown) (unknown) MCHC 35.4 (30-36) (units (unknown) date) % unknown) (unknown) (no (unknown) (unknown) MCV (80-100) fL (units (unknown) date) unknown) (unknown) (no (unknown) (unknown) MCV 85.3 (80-100) (units (unknown) date) fL unknown) (unknown) (no (unknown) (unknown) MDM - Psych (units (un known) date) unknown) (unknown) (no (unknown) (unknown) MDM Narrative (units ( unknown) date) unknown) (unknown) (no (unknown) (unknown) MUSCULOSKELETAL: (units (unknown) date) Denies extremity unknown) pain, injury (unknown) (no (unknown) (unknown) Medical decision (units (unknown) date) making narrative: unknown) (unknown) (no (unknown) (unknown) Mode of arrival: (units (unknown) date) Ambulatory unknown) (unknown) (no (unknown) (unknown) [place] # (Auto) (units ( unknown) date) (0-900) /uL unknown) (unknown) (no (unknown) (unknown) [place] # (Auto) 400 (units (unknown) date) (0-900) /uL unknown) (unknown) (no (unknown) (unknown) [place] % (Auto) (units ( unknown) date) (3-14) % unknown) (unknown) (no (unknown) (unknown) [place] % (Auto) 6.8 (units (unknown) date) (3-14) % unknown) (unknown) (no (unknown) (unknown) NEUROLOGIC: Denies (units (unknown) date) weakness, unknown) dizziness, headache, numbness (unknown) (no (unknown) (unknown) NEUROLOGICAL: (units ( unknown) date) Cranial nerves II unknown) through XII grossly intact. Normal gait and (unknown) (no (unknown) (unknown) Narrative: (units (unk nown) date) unknown) (unknown) (no (unknown) (unknown) Neut # (Auto) (units ( unknown) date) (3127-7007) /uL unknown) (unknown) (no (unknown) (unknown) Neut # (Auto) 3300 (units (unknown) date) (8313-9620) /uL unknown) (unknown) (no (unknown) (unknown) Neut % (Auto) (units ( unknown) date) (50-75) % unknown) (unknown) (no (unknown) (unknown) Neut % (Auto) 52.1 (units (unknown) date) (50-75) % unknown) (unknown) (no (unknown) (unknown) Ordered: (units (unkno wn) date) unknown) (unknown) (no (unknown) (unknown) Orders (units (unkno wn) date) unknown) (unknown) (no (unknown) (unknown) Oxygen Delivery (units (unknown) date) Method 12/19/21 unknown) 21:00 (unknown) (no (unknown) (unknown) Oxygen Delivery (units (unknown) date) Method Room Air unknown) Room Air Room Air (unknown) (no (unknown) (unknown) Patient (units (unkno wn) date) Disposition: Xfer unknown) [facility] (unknown) (no (unknown) (unknown) Patient History (units (unknown) date) unknown) (unknown) (no (unknown) (unknown) Patient currently (units (unknown) date) is voluntary. To unknown) [facility] evaluation with (unknown) (no (unknown) (unknown) Patient is a (units (un known) date) healthy 31-year-old unknown) female within 2-month-old and (unknown) (no (unknown) (unknown) Patient signed out (units (unknown) date) to Dr. Ramos for unknown) further evaluation management and disposition (unknown) (no (unknown) (unknown) Patient signed out (units (unknown) date) to Dr. Ramos for unknown) further evaluation management and (unknown) (no (unknown) (unknown) Patient: (units (unkno wn) date) Jaelyn Clayton unknown) MR#: M (unknown) (no (unknown) (unknown) Plt Count (units (unkn own) date) (150-400) X103/uL unknown) (unknown) (no (unknown) (unknown) Plt Count 264 (units ( unknown) date) (150-400) X103/uL unknown) (unknown) (no (unknown) (unknown) Point of Care (units ( unknown) date) Testing unknown) (unknown) (no (unknown) (unknown) Potassium (units (unkn own) date) (3.4-5.1) mmol/L unknown) (unknown) (no (unknown) (unknown) Potassium 3.7 (units ( unknown) date) (3.4-5.1) mmol/L unknown) (unknown) (no (unknown) (unknown) Test (units (unknown) date) Results Negative unknown) (unknown) (no (unknown) (unknown) Provider,Mee (units (unknown) date) REYNALDO [Primary Care unknown) Provider] (unknown) (no (unknown) (unknown) Psychiatric (units (un known) date) unknown) (unknown) (no (unknown) (unknown) Psychiatric: (units (u nknown) date) Reports system unknown) reviewed and no additional complaints, except as (unknown) (no (unknown) (unknown) Pulse Oximetry 97 (units (unknown) date) 12/19/21 21:00 unknown) (unknown) (no (unknown) (unknown) Pulse Oximetry 98 (units (unknown) date) 96 97 unknown) (unknown) (no (unknown) (unknown) Pulse Rate 78 72 (units (unknown) date) 79 unknown) (unknown) (no (unknown) (unknown) Pulse Rate 81 (units ( unknown) date) 12/19/21 21:00 unknown) (unknown) (no (unknown) (unknown) RBC (4.0-5.2) (units ( unknown) date) X106/uL unknown) (unknown) (no (unknown) (unknown) RBC 4.17 (4.0-5.2) (units (unknown) date) X106/uL unknown) (unknown) (no (unknown) (unknown) RDW (11.6-14.8) % (units (unknown) date) unknown) (unknown) (no (unknown) (unknown) RDW 13.2 (units (unkno wn) date) (11.6-14.8) % unknown) (unknown) (no (unknown) (unknown) RESPIRATORY: (units (u nknown) date) Denies dyspnea, unknown) cough, wheezing (unknown) (no (unknown) (unknown) RESPIRATORY: No (units (unknown) date) respiratory unknown) distress, speaks in full sentences without (unknown) (no (unknown) (unknown) Referrals: (units (unk nown) date) unknown) (unknown) (no (unknown) (unknown) Related Data (units (u nknown) date) unknown) (unknown) (no (unknown) (unknown) Respiratory Rate (units (unknown) date) 15 18 18 unknown) (unknown) (no (unknown) (unknown) Respiratory Rate (units (unknown) date) 22 12/19/21 21:00 unknown) (unknown) (no (unknown) (unknown) Result diagrams: (units (unknown) date) unknown) (unknown) (no (unknown) (unknown) Review of Systems (units (unknown) date) unknown) (unknown) (no (unknown) (unknown) SARS-CoV-2 (PCR) (units (unknown) date) (Negative) unknown) (unknown) (no (unknown) (unknown) SARS-CoV-2 (PCR) (units (unknown) date) Negative (Negative) unknown) (unknown) (no (unknown) (unknown) SKIN: No rash, no (units (unknown) date) laceration, no unknown) pruritus (unknown) (no (unknown) (unknown) SKIN: Warm, dry, (units (unknown) date) no petechiae, no unknown) rashes or lesions. (unknown) (no (unknown) (unknown) Salicylates < 1.0 (units (unknown) date) (<20) mg/dL unknown) (unknown) (no (unknown) (unknown) Salicylates (<20) (units (unknown) date) mg/dL unknown) (unknown) (no (unknown) (unknown) She has been in (units (unknown) date) contact with unknown) multiple pull friends there is a [id number] here (unknown) (no (unknown) (unknown) Signed By: (units (unk nown) date) unknown) (unknown) (no (unknown) (unknown) Smoking Status: (units (unknown) date) Never smoker unknown) (unknown) (no (unknown) (unknown) Social History (units (unknown) date) (Reviewed 12/20/21 unknown) @ 06:36 by Ioana Hendrickson DO) (unknown) (no (unknown) (unknown) Sodium (137-145) (units (unknown) date) mmol/L unknown) (unknown) (no (unknown) (unknown) Sodium 138 (units (unk nown) date) (137-145) mmol/L unknown) (unknown) (no (unknown) (unknown) Source: patient (units (unknown) date) unknown) (unknown) (no (unknown) (unknown) Stated Complaint: (units (unknown) date) Needs to be seen, unknown) sent by [employer] (unknown) (no (unknown) (unknown) Stop: 12/20/21 (units (unknown) date) 12:32 unknown) (unknown) (no (unknown) (unknown) Stop: 12/20/21 (units (unknown) date) 13:54 unknown) (unknown) (no (unknown) (unknown) Suicidal ideation (units (unknown) date) unknown) (unknown) (no (unknown) (unknown) TSH (0.47-4.68) (units (unknown) date) uIU/mL unknown) (unknown) (no (unknown) (unknown) TSH 1.23 (units (unkno wn) date) (0.47-4.68) uIU/mL unknown) (unknown) (no (unknown) (unknown) Temperature 97.7 F (units (unknown) date) unknown) (unknown) (no (unknown) (unknown) Temperature 97.8 F (units (unknown) date) 12/19/21 21:00 unknown) (unknown) (no (unknown) (unknown) Time Seen by (units (u nknown) date) Provider: 12/20/21 unknown) 06:22 (unknown) (no (unknown) (unknown) Total Bilirubin (units (unknown) date) (0.2-1.3) mg/dL unknown) (unknown) (no (unknown) (unknown) Total Bilirubin (units (unknown) date) 0.6 (0.2-1.3) mg/dL unknown) (unknown) (no (unknown) (unknown) Total Protein (units ( unknown) date) (6.3-8.2) g/dL unknown) (unknown) (no (unknown) (unknown) Total Protein 8.3 (units (unknown) date) H (6.3-8.2) g/dL unknown) (unknown) (no (unknown) (unknown) U Benzodiazepines (units (unknown) date) Scrn (Negative) unknown) (unknown) (no (unknown) (unknown) U Benzodiazepines (units (unknown) date) Scrn Negative unknown) (Negative) (unknown) (no (unknown) (unknown) U Marijuana (THC) (units (unknown) date) Screen (Negative) unknown) (unknown) (no (unknown) (unknown) U Marijuana (THC) (units (unknown) date) Screen Negative unknown) (Negative) (unknown) (no (unknown) (unknown) U Methamphetamines (units (unknown) date) Scrn (Negative) unknown) (unknown) (no (unknown) (unknown) U Methamphetamines (units (unknown) date) Scrn Negative unknown) (Negative) (unknown) (no (unknown) (unknown) U Opiates 300ng/mL (units (unknown) date) cut (Negative) unknown) (unknown) (no (unknown) (unknown) U Opiates 300ng/mL (units (unknown) date) cut Negative unknown) (Negative) (unknown) (no (unknown) (unknown) U Tricyclic (units (un known) date) Antidepress unknown) (Negative) (unknown) (no (unknown) (unknown) U Tricyclic (units (un known) date) Antidepress unknown) Negative (Negative) (unknown) (no (unknown) (unknown) Ur Amphetamines (units (unknown) date) Screen (Negative) unknown) (unknown) (no (unknown) (unknown) Ur Amphetamines (units (unknown) date) Screen Negative unknown) (Negative) (unknown) (no (unknown) (unknown) Ur Barbiturates (units (unknown) date) Screen (Negative) unknown) (unknown) (no (unknown) (unknown) Ur Barbiturates (units (unknown) date) Screen Negative unknown) (Negative) (unknown) (no (unknown) (unknown) Ur MDMA Scrn (units (u nknown) date) (Ecstasy) unknown) (Negative) (unknown) (no (unknown) (unknown) Ur MDMA Scrn (units (u nknown) date) (Ecstasy) Negative unknown) (Negative) (unknown) (no (unknown) (unknown) Ur Oxycodone (units (u nknown) date) Screen (Negative) unknown) (unknown) (no (unknown) (unknown) Ur Oxycodone (units (u nknown) date) Screen Negative unknown) (Negative) (unknown) (no (unknown) (unknown) Ur Phencyclidine (units (unknown) date) Scrn (Negative) unknown) (unknown) (no (unknown) (unknown) Ur Phencyclidine (units (unknown) date) Scrn Negative unknown) (Negative) (unknown) (no (unknown) (unknown) Urine Cocaine (units ( unknown) date) Screen (Negative) unknown) (unknown) (no (unknown) (unknown) Urine Cocaine (units ( unknown) date) Screen Negative unknown) (Negative) (unknown) (no (unknown) (unknown) Urine Dip (units (unkn own) date) unknown) (unknown) (no (unknown) (unknown) Urine Methadone (units (unknown) date) Screen (Negative) unknown) (unknown) (no (unknown) (unknown) Urine Methadone (units (unknown) date) Screen Negative unknown) (Negative) (unknown) (no (unknown) (unknown) [facility] (units (unknown) date) and had prior unknown) authorization from [facility]. (unknown) (no (unknown) (unknown) Vital Signs - 8 hr (units (unknown) date) unknown) (unknown) (no (unknown) (unknown) Vital Signs (units (un known) date) unknown) (unknown) (no (unknown) (unknown) Vital signs: (units (u nknown) date) unknown) (unknown) (no (unknown) (unknown) WBC (4.5-11.0) (units (unknown) date) X103/uL unknown) (unknown) (no (unknown) (unknown) WBC 6.4 (4.5-11.0) (units (unknown) date) X103/uL unknown) (unknown) (no (unknown) (unknown) [Embedded Image (units (unknown) date) Not Available] unknown) (unknown) (no (unknown) (unknown) a 5-year-old (units (u nknown) date) presenting today unknown) with suicidal ideations. States that she has (unknown) (no (unknown) (unknown) alcohol intake (units (unknown) date) frequency: 0-2 unknown) drinks per day (unknown) (no (unknown) (unknown) are multiple guns (units (unknown) date) at home. She does unknown) not want to hurt her children however he (unknown) (no (unknown) (unknown) continues to be (units (unknown) date) agreeable. She has unknown) been pumping breast milk, discussed options (unknown) (no (unknown) (unknown) difficulty (units (unk nown) date) unknown) (unknown) (no (unknown) (unknown) disposition. (units (u nknown) date) unknown) (unknown) (no (unknown) (unknown) documented, Denies (units (unknown) date) homicidal ideation unknown) and Reports suicidal ideation (unknown) (no (unknown) (unknown) feelings got even (units (unknown) date) worse. She says she unknown) does not trust herself at home. There (unknown) (no (unknown) (unknown) for temporary help (units (unknown) date) with the children unknown) and her who is currently deployed (unknown) (no (unknown) (unknown) found mildly (units (u nknown) date) helpful. She was unknown) significantly more anxious once EMS arrived but (unknown) (no (unknown) (unknown) gluten Allergy (units (unknown) date) Intermediate Hives unknown) Verified 12/20/21 06:35 (unknown) (no (unknown) (unknown) hand pump she is (units (unknown) date) trying to wean down unknown) and we discussed potential treatments to (unknown) (no (unknown) (unknown) having suicidal (units (unknown) date) ideation she has unknown) express that she is not sure she can stay safe (unknown) (no (unknown) (unknown) help prevent (units (u nknown) date) mastitis and unknown) engorgement. Patient was found placement at [facility] (unknown) (no (unknown) (unknown) intact (units (unkno wn) date) unknown) (unknown) (no (unknown) (unknown) is in process of (units (unknown) date) being contacted. unknown) Patient had 1 dose of oral Ativan which she (unknown) (no (unknown) (unknown) just feels like (units (unknown) date) she does not want unknown) to live. She does not want to feel this way (unknown) (no (unknown) (unknown) probable (units (unkno wn) date) placement. Patient unknown) does have [id number] here now for temporary help (unknown) (no (unknown) (unknown) she can ask for (units (unknown) date) supervised pumping unknown) with a regular pump, she can asked to have a (unknown) (no (unknown) (unknown) she does not know (units (unknown) date) why she is feeling unknown) this way. She does not trust herself. (unknown) (no (unknown) (unknown) she might lose her (units (unknown) date) children if she unknown) goes inpatient but is seeking treatment. (unknown) (no (unknown) (unknown) speech. (units (unkno wn) date) unknown) (unknown) (no (unknown) (unknown) started feeling (units (unknown) date) this way for a unknown) couple of weeks. Stating that she just does not (unknown) (no (unknown) (unknown) want to live. Her (units (unknown) date) deployed unknown) last week [place] ([place]) (no (unknown) (unknown) with children. She (units (unknown) date) does have a couple unknown) with friends. 1 is here now. (unknown) (no (unknown) (unknown) with her kids at (units (unknown) date) home she is unknown) voluntary. She is quite anxious and concerned that Result panel 12 (unknown) (no (unknown) (unknown) (no value) (units (unk nown) date) unknown) (unknown) (no (unknown) (unknown) <Electronically (units (unknown) date) signed by Ioana unknown) Malini Hendrickson> (unknown) (no (unknown) (unknown) <Electronically (units (unknown) date) signed by Dionna borges) Malini Ramos> (unknown) (no (unknown) (unknown) <Ioana Hendrickson, (units (unknown) date) DO - Last Filed: unknown) 12/21/21 01:20> (unknown) (no (unknown) (unknown) <Dionna Ramos DO (units (unknown) date) - Last Filed: unknown) 12/20/21 17:59> (unknown) (no (unknown) (unknown) [id number] (units (unkn own) date) unknown) (unknown) (no (unknown) (unknown) 12/19/21 12/19/21 (units (unknown) date) 12/19/21 unknown) Range/Units (unknown) (no (unknown) (unknown) 12/19/21 12/20/21 (units (unknown) date) Range/Units unknown) (unknown) (no (unknown) (unknown) 12/19/21 21:44 (units (unknown) date) unknown) (unknown) (no (unknown) (unknown) 12/20/21 1759 (units ( unknown) date) unknown) (unknown) (no (unknown) (unknown) 12/20/21 Richard: (units (unknown) date) Patient signed out unknown) to myself by Dr. Hendrickson. Patient has been (unknown) (no (unknown) (unknown) 12/20/21 (units (unkno wn) date) unknown) (unknown) (no (unknown) (unknown) 12/21/21 0120 (units ( unknown) date) unknown) (unknown) (no (unknown) (unknown) 17:37 (units (unkno wn) date) unknown) (unknown) (no (unknown) (unknown) 21:44 21:44 21:44 (units (unknown) date) unknown) (unknown) (no (unknown) (unknown) 22:35 12:23 (units (un known) date) unknown) (unknown) (no (unknown) (unknown) 8 point review of (units (unknown) date) systems is negative unknown) except for those stated above and HPI (unknown) (no (unknown) (unknown) ALT (<35) IU/L (units (unknown) date) unknown) (unknown) (no (unknown) (unknown) ALT 48 H (<35) (units (unknown) date) IU/L unknown) (unknown) (no (unknown) (unknown) AST (14-36) IU/L (units (unknown) date) unknown) (unknown) (no (unknown) (unknown) AST 36 (14-36) (units (unknown) date) IU/L unknown) (unknown) (no (unknown) (unknown) Acetaminophen < 10 (units (unknown) date) (10-30) ug/mL unknown) (unknown) (no (unknown) (unknown) Acetaminophen (units ( unknown) date) (10-30) ug/mL unknown) (unknown) (no (unknown) (unknown) Acetaminophen (units ( unknown) date) (Acetaminophen 325 unknown) Mg Tablet) 650 mg PO NOW ONE (unknown) (no (unknown) (unknown) Age/Sex: 31 / F (units (unknown) date) unknown) (unknown) (no (unknown) (unknown) Albumin (3.5-5.0) (units (unknown) date) g/dL unknown) (unknown) (no (unknown) (unknown) Albumin 4.8 (units (un known) date) (3.5-5.0) g/dL unknown) (unknown) (no (unknown) (unknown) Albumin/Globulin (units (unknown) date) Ratio (1.0-2.8) unknown) (unknown) (no (unknown) (unknown) Albumin/Globulin (units (unknown) date) Ratio 1.4 (1.0-2.8) unknown) (unknown) (no (unknown) (unknown) Alkaline (units (unkno wn) date) Phosphatase unknown) (38-126) U/L (unknown) (no (unknown) (unknown) Alkaline (units (unkno wn) date) Phosphatase 110 unknown) (38-126) U/L (unknown) (no (unknown) (unknown) Allergies (units (unkn own) date) unknown) (unknown) (no (unknown) (unknown) Allergy/AdvReac (units (unknown) date) Type Severity unknown) Reaction Status Date / Time (unknown) (no (unknown) (unknown) BUN (7-17) mg/dL (units (unknown) date) unknown) (unknown) (no (unknown) (unknown) BUN 11 (7-17) (units ( unknown) date) mg/dL unknown) (unknown) (no (unknown) (unknown) BUN/Creatinine (units (unknown) date) Ratio (6-22) unknown) (unknown) (no (unknown) (unknown) BUN/Creatinine (units (unknown) date) Ratio 16.4 (6-22) unknown) (unknown) (no (unknown) (unknown) Baso # (Auto) (units ( unknown) date) (0-100) /uL unknown) (unknown) (no (unknown) (unknown) Baso # (Auto) 100 (units (unknown) date) (0-100) /uL unknown) (unknown) (no (unknown) (unknown) Baso % (Auto) (units ( unknown) date) (0-2) % unknown) (unknown) (no (unknown) (unknown) Baso % (Auto) 1.1 (units (unknown) date) (0-2) % unknown) (unknown) (no (unknown) (unknown) Bedside Urine (units ( unknown) date) Bilirubin - unknown) Negative (unknown) (no (unknown) (unknown) Bedside Urine (units ( unknown) date) Glucose Negative unknown) (unknown) (no (unknown) (unknown) Bedside Urine (units ( unknown) date) Ketone - Negative unknown) (unknown) (no (unknown) (unknown) Bedside Urine (units ( unknown) date) Leukocytes - unknown) Negative (unknown) (no (unknown) (unknown) Bedside Urine (units ( unknown) date) Nitrite - Negative unknown) (unknown) (no (unknown) (unknown) Bedside Urine (units ( unknown) date) Occult Blood - unknown) Negative (unknown) (no (unknown) (unknown) Bedside Urine (units ( unknown) date) Protein - Negative unknown) (unknown) (no (unknown) (unknown) Bedside Urine (units ( unknown) date) Urobilinogen - unknown) Negative (unknown) (no (unknown) (unknown) Blood Pressure (units (unknown) date) 121/80 unknown) (unknown) (no (unknown) (unknown) Blood Pressure (units (unknown) date) 137/88 12/19/21 unknown) 21:00 (unknown) (no (unknown) (unknown) CARDIOVASCULAR: (units (unknown) date) Denies chest pain, unknown) palpitations (unknown) (no (unknown) (unknown) CARDIOVASCULAR: (units (unknown) date) peripheral pulses unknown) in tact, cap refill <2 sec (unknown) (no (unknown) (unknown) Calcium (8.4-10.2) (units (unknown) date) mg/dL unknown) (unknown) (no (unknown) (unknown) Calcium 9.4 (units (un known) date) (8.4-10.2) mg/dL unknown) (unknown) (no (unknown) (unknown) Carbon Dioxide (units (unknown) date) (22-32) mmol/L unknown) (unknown) (no (unknown) (unknown) Carbon Dioxide 22 (units (unknown) date) (22-32) mmol/L unknown) (unknown) (no (unknown) (unknown) Chief Complaint: (units (unknown) date) Psychiatric unknown) Symptoms (unknown) (no (unknown) (unknown) Chloride (98-107) (units (unknown) date) mmol/L unknown) (unknown) (no (unknown) (unknown) Chloride 104 (units (u nknown) date) (98-107) mmol/L unknown) (unknown) (no (unknown) (unknown) Clinical (units (unkno wn) date) Impression: unknown) (unknown) (no (unknown) (unknown) Course (units (unkno wn) date) unknown) (unknown) (no (unknown) (unknown) Creatinine (units (unk nown) date) (0.52-1.04) mg/dL unknown) (unknown) (no (unknown) (unknown) Creatinine 0.67 (units (unknown) date) (0.52-1.04) mg/dL unknown) (unknown) (no (unknown) (unknown) : 1990 (units (unknown) date) Acct:[id number] unknown) (unknown) (no (unknown) (unknown) Date of Service: (units (unknown) date) 12/19/21 unknown) (unknown) (no (unknown) (unknown) Departure (units (unkn own) date) unknown) (unknown) (no (unknown) (unknown) Discharge Plan (units (unknown) date) unknown) (unknown) (no (unknown) (unknown) Discontinued (units (u nknown) date) Medications unknown) (unknown) (no (unknown) (unknown) Documented By: ADK (units (unknown) date) unknown) (unknown) (no (unknown) (unknown) Documented By: RLS (units (unknown) date) unknown) (unknown) (no (unknown) (unknown) ER Physician: (units ( unknown) date) Dionna Ramos D.O. unknown) (unknown) (no (unknown) (unknown) EXTREMITIES: (units (u nknown) date) Normal range of unknown) motion, no clubbing or edema. Neurovascularly (unknown) (no (unknown) (unknown) Emergency Report (units (unknown) date) unknown) (unknown) (no (unknown) (unknown) Eos # (Auto) (units (u nknown) date) (0-450) /uL unknown) (unknown) (no (unknown) (unknown) Eos # (Auto) 200 (units (unknown) date) (0-450) /uL unknown) (unknown) (no (unknown) (unknown) Eos % (Auto) (2-4) (units (unknown) date) % unknown) (unknown) (no (unknown) (unknown) Eos % (Auto) 3.0 (units (unknown) date) (2-4) % unknown) (unknown) (no (unknown) (unknown) Esterase (units (unkno wn) date) unknown) (unknown) (no (unknown) (unknown) Estimated GFR > 60 (units (unknown) date) (>60) mL/min unknown) (unknown) (no (unknown) (unknown) Estimated GFR (units ( unknown) date) (>60) mL/min unknown) (unknown) (no (unknown) (unknown) Ethyl Alcohol < 10 (units (unknown) date) ( - 10) mg/dL unknown) (unknown) (no (unknown) (unknown) Ethyl Alcohol ( - (units (unknown) date) 10) mg/dL unknown) (unknown) (no (unknown) (unknown) Exam (units (unkno wn) date) unknown) (unknown) (no (unknown) (unknown) Free T4 (units (unkno wn) date) (0.78-2.19) ng/dL unknown) (unknown) (no (unknown) (unknown) Free T4 1.26 (units (u nknown) date) (0.78-2.19) ng/dL unknown) (unknown) (no (unknown) (unknown) GASTROINTESTINAL: (units (unknown) date) Denies nausea, unknown) vomiting (unknown) (no (unknown) (unknown) GENERAL: Denies (units (unknown) date) chills,fever unknown) (unknown) (no (unknown) (unknown) GENERAL: Tearful (units (unknown) date) 31-year-old female unknown) (unknown) (no (unknown) (unknown) General (units (unkno wn) date) unknown) (unknown) (no (unknown) (unknown) Globulin (1.7-4.1) (units (unknown) date) g/dL unknown) (unknown) (no (unknown) (unknown) Globulin 3.5 (units (u nknown) date) (1.7-4.1) g/dL unknown) (unknown) (no (unknown) (unknown) Glucose (70-100) (units (unknown) date) mg/dL unknown) (unknown) (no (unknown) (unknown) Glucose 111 H (units ( unknown) date) (70-100) mg/dL unknown) (unknown) (no (unknown) (unknown) HEENT: Denies (units ( unknown) date) throat pain unknown) (unknown) (no (unknown) (unknown) HPI - Psych (units (un known) date) unknown) (unknown) (no (unknown) (unknown) HPI Narrative: (units (unknown) date) unknown) (unknown) (no (unknown) (unknown) Hct (36-46) % (units ( unknown) date) unknown) (unknown) (no (unknown) (unknown) Hct 35.6 L (36-46) (units (unknown) date) % unknown) (unknown) (no (unknown) (unknown) Hgb (12.0-16.0) (units (unknown) date) g/dL unknown) (unknown) (no (unknown) (unknown) Hgb 12.6 (units (unkno wn) date) (12.0-16.0) g/dL unknown) (unknown) (no (unknown) (unknown) History of Present (units (unknown) date) Illness unknown) (unknown) (no (unknown) (unknown) Initial Vital (units ( unknown) date) Signs unknown) (unknown) (no (unknown) (unknown) Initial Vital (units ( unknown) date) Signs: unknown) (unknown) (no (unknown) (unknown) [facility] (units (unknown) date) [address] [place] [address] unknown) [place] [address] (unknown) (no (unknown) (unknown) Lab Data (units (unkno wn) date) unknown) (unknown) (no (unknown) (unknown) Lab Results (units (un known) date) unknown) (unknown) (no (unknown) (unknown) Labs: (units (unkno wn) date) unknown) (unknown) (no (unknown) (unknown) Last Admin: (units (un known) date) 12/20/21 12:34 unknown) Dose: 650 mg (unknown) (no (unknown) (unknown) Last Admin: (units (un known) date) 12/20/21 14:19 unknown) Dose: 1 mg (unknown) (no (unknown) (unknown) Lorazepam (units (unkn own) date) (Lorazepam 0.5 Mg unknown) Tablet) 1 mg PO NOW ONE (unknown) (no (unknown) (unknown) Lymph # (Auto) (units (unknown) date) (1991-0637) /uL unknown) (unknown) (no (unknown) (unknown) Lymph # (Auto) (units (unknown) date) 2400 (4584-9837) unknown) /uL (unknown) (no (unknown) (unknown) Lymph % (Auto) (units (unknown) date) (25-40) % unknown) (unknown) (no (unknown) (unknown) Lymph % (Auto) (units (unknown) date) 37.0 (25-40) % unknown) (unknown) (no (unknown) (unknown) MCH (26-34) PG (units (unknown) date) unknown) (unknown) (no (unknown) (unknown) MCH 30.2 (26-34) (units (unknown) date) PG unknown) (unknown) (no (unknown) (unknown) MCHC (30-36) % (units (unknown) date) unknown) (unknown) (no (unknown) (unknown) MCHC 35.4 (30-36) (units (unknown) date) % unknown) (unknown) (no (unknown) (unknown) MCV (80-100) fL (units (unknown) date) unknown) (unknown) (no (unknown) (unknown) MCV 85.3 (80-100) (units (unknown) date) fL unknown) (unknown) (no (unknown) (unknown) MDM - Psych (units (un known) date) unknown) (unknown) (no (unknown) (unknown) MDM Narrative (units ( unknown) date) unknown) (unknown) (no (unknown) (unknown) MUSCULOSKELETAL: (units (unknown) date) Denies extremity unknown) pain, injury (unknown) (no (unknown) (unknown) Medical decision (units (unknown) date) making narrative: unknown) (unknown) (no (unknown) (unknown) Mode of arrival: (units (unknown) date) Ambulatory unknown) (unknown) (no (unknown) (unknown) [place] # (Auto) (units ( unknown) date) (0-900) /uL unknown) (unknown) (no (unknown) (unknown) [place] # (Auto) 400 (units (unknown) date) (0-900) /uL unknown) (unknown) (no (unknown) (unknown) [place] % (Auto) (units ( unknown) date) (3-14) % unknown) (unknown) (no (unknown) (unknown) [place] % (Auto) 6.8 (units (unknown) date) (3-14) % unknown) (unknown) (no (unknown) (unknown) NEUROLOGIC: Denies (units (unknown) date) weakness, unknown) dizziness, headache, numbness (unknown) (no (unknown) (unknown) NEUROLOGICAL: (units ( unknown) date) Cranial nerves II unknown) through XII grossly intact. Normal gait and (unknown) (no (unknown) (unknown) Narrative: (units (unk nown) date) unknown) (unknown) (no (unknown) (unknown) Neut # (Auto) (units ( unknown) date) (0863-2224) /uL unknown) (unknown) (no (unknown) (unknown) Neut # (Auto) 3300 (units (unknown) date) (3410-2379) /uL unknown) (unknown) (no (unknown) (unknown) Neut % (Auto) (units ( unknown) date) (50-75) % unknown) (unknown) (no (unknown) (unknown) Neut % (Auto) 52.1 (units (unknown) date) (50-75) % unknown) (unknown) (no (unknown) (unknown) Ordered: (units (unkno wn) date) unknown) (unknown) (no (unknown) (unknown) Orders (units (unkno wn) date) unknown) (unknown) (no (unknown) (unknown) Oxygen Delivery (units (unknown) date) Method 12/19/21 unknown) 21:00 (unknown) (no (unknown) (unknown) Oxygen Delivery (units (unknown) date) Method Room Air unknown) (unknown) (no (unknown) (unknown) Patient (units (unkno wn) date) Disposition: Xfer unknown) [facility] ([facility]) (no (unknown) (unknown) Patient History (units (unknown) date) unknown) (unknown) (no (unknown) (unknown) Patient currently (units (unknown) date) is voluntary. unknown) Awaiting social Work evaluation with probable (unknown) (no (unknown) (unknown) Patient currently (units (unknown) date) is voluntary. To unknown) [facility] social Work evaluation with (unknown) (no (unknown) (unknown) Patient is a (units (un known) date) healthy 31-year-old unknown) female within 2-month-old and (unknown) (no (unknown) (unknown) Patient signed out (units (unknown) date) to Dr. Ramos for unknown) further evaluation management and (unknown) (no (unknown) (unknown) Patient: (units (unkno wn) date) Jaelyn Clayton unknown) MR#: M (unknown) (no (unknown) (unknown) Plt Count (units (unkn own) date) (150-400) X103/uL unknown) (unknown) (no (unknown) (unknown) Plt Count 264 (units ( unknown) date) (150-400) X103/uL unknown) (unknown) (no (unknown) (unknown) Point of Care (units ( unknown) date) Testing unknown) (unknown) (no (unknown) (unknown) Potassium (units (unkn own) date) (3.4-5.1) mmol/L unknown) (unknown) (no (unknown) (unknown) Potassium 3.7 (units ( unknown) date) (3.4-5.1) mmol/L unknown) (unknown) (no (unknown) (unknown) Test (units (unknown) date) Results Negative unknown) (unknown) (no (unknown) (unknown) Provider,Mee (units (unknown) date) REYNALDO [Primary Care unknown) Provider] (unknown) (no (unknown) (unknown) Psychiatric (units (un known) date) unknown) (unknown) (no (unknown) (unknown) Psychiatric: (units (u nknown) date) Reports system unknown) reviewed and no additional complaints, except as (unknown) (no (unknown) (unknown) Pulse Oximetry 97 (units (unknown) date) 12/19/21 21:00 unknown) (unknown) (no (unknown) (unknown) Pulse Oximetry 97 (units (unknown) date) unknown) (unknown) (no (unknown) (unknown) Pulse Rate 79 (units ( unknown) date) unknown) (unknown) (no (unknown) (unknown) Pulse Rate 81 (units ( unknown) date) 12/19/21 21:00 unknown) (unknown) (no (unknown) (unknown) RBC (4.0-5.2) (units ( unknown) date) X106/uL unknown) (unknown) (no (unknown) (unknown) RBC 4.17 (4.0-5.2) (units (unknown) date) X106/uL unknown) (unknown) (no (unknown) (unknown) RDW (11.6-14.8) % (units (unknown) date) unknown) (unknown) (no (unknown) (unknown) RDW 13.2 (units (unkno wn) date) (11.6-14.8) % unknown) (unknown) (no (unknown) (unknown) RESPIRATORY: (units (u nknown) date) Denies dyspnea, unknown) cough, wheezing (unknown) (no (unknown) (unknown) RESPIRATORY: No (units (unknown) date) respiratory unknown) distress, speaks in full sentences without (unknown) (no (unknown) (unknown) Referrals: (units (unk nown) date) unknown) (unknown) (no (unknown) (unknown) Related Data (units (u nknown) date) unknown) (unknown) (no (unknown) (unknown) Respiratory Rate (units (unknown) date) 18 unknown) (unknown) (no (unknown) (unknown) Respiratory Rate (units (unknown) date) 22 12/19/21 21:00 unknown) (unknown) (no (unknown) (unknown) Result diagrams: (units (unknown) date) unknown) (unknown) (no (unknown) (unknown) Review of Systems (units (unknown) date) unknown) (unknown) (no (unknown) (unknown) SARS-CoV-2 (PCR) (units (unknown) date) (Negative) unknown) (unknown) (no (unknown) (unknown) SARS-CoV-2 (PCR) (units (unknown) date) Negative (Negative) unknown) (unknown) (no (unknown) (unknown) SKIN: No rash, no (units (unknown) date) laceration, no unknown) pruritus (unknown) (no (unknown) (unknown) SKIN: Warm, dry, (units (unknown) date) no petechiae, no unknown) rashes or lesions. (unknown) (no (unknown) (unknown) Salicylates < 1.0 (units (unknown) date) (<20) mg/dL unknown) (unknown) (no (unknown) (unknown) Salicylates (<20) (units (unknown) date) mg/dL unknown) (unknown) (no (unknown) (unknown) She has been in (units (unknown) date) contact with unknown) multiple pull friends there is a [id number] here (unknown) (no (unknown) (unknown) Signed By: (units (unk nown) date) unknown) (unknown) (no (unknown) (unknown) Smoking Status: (units (unknown) date) Never smoker unknown) (unknown) (no (unknown) (unknown) Social History (units (unknown) date) (Reviewed 12/20/21 unknown) @ 06:36 by Ioana Hendrickson DO) (unknown) (no (unknown) (unknown) Sodium (137-145) (units (unknown) date) mmol/L unknown) (unknown) (no (unknown) (unknown) Sodium 138 (units (unk nown) date) (137-145) mmol/L unknown) (unknown) (no (unknown) (unknown) Source: patient (units (unknown) date) unknown) (unknown) (no (unknown) (unknown) Stated Complaint: (units (unknown) date) Needs to be seen, unknown) sent by [employer] (unknown) (no (unknown) (unknown) Stop: 12/20/21 (units (unknown) date) 12:32 unknown) (unknown) (no (unknown) (unknown) Stop: 12/20/21 (units (unknown) date) 13:54 unknown) (unknown) (no (unknown) (unknown) Suicidal ideation (units (unknown) date) unknown) (unknown) (no (unknown) (unknown) TSH (0.47-4.68) (units (unknown) date) uIU/mL unknown) (unknown) (no (unknown) (unknown) TSH 1.23 (units (unkno wn) date) (0.47-4.68) uIU/mL unknown) (unknown) (no (unknown) (unknown) Temperature 97.7 F (units (unknown) date) unknown) (unknown) (no (unknown) (unknown) Temperature 97.8 F (units (unknown) date) 12/19/21 21:00 unknown) (unknown) (no (unknown) (unknown) Time Seen by (units (u nknown) date) Provider: 12/20/21 unknown) 06:22 (unknown) (no (unknown) (unknown) Total Bilirubin (units (unknown) date) (0.2-1.3) mg/dL unknown) (unknown) (no (unknown) (unknown) Total Bilirubin (units (unknown) date) 0.6 (0.2-1.3) mg/dL unknown) (unknown) (no (unknown) (unknown) Total Protein (units ( unknown) date) (6.3-8.2) g/dL unknown) (unknown) (no (unknown) (unknown) Total Protein 8.3 (units (unknown) date) H (6.3-8.2) g/dL unknown) (unknown) (no (unknown) (unknown) U Benzodiazepines (units (unknown) date) Scrn (Negative) unknown) (unknown) (no (unknown) (unknown) U Benzodiazepines (units (unknown) date) Scrn Negative unknown) (Negative) (unknown) (no (unknown) (unknown) U Marijuana (THC) (units (unknown) date) Screen (Negative) unknown) (unknown) (no (unknown) (unknown) U Marijuana (THC) (units (unknown) date) Screen Negative unknown) (Negative) (unknown) (no (unknown) (unknown) U Methamphetamines (units (unknown) date) Scrn (Negative) unknown) (unknown) (no (unknown) (unknown) U Methamphetamines (units (unknown) date) Scrn Negative unknown) (Negative) (unknown) (no (unknown) (unknown) U Opiates 300ng/mL (units (unknown) date) cut (Negative) unknown) (unknown) (no (unknown) (unknown) U Opiates 300ng/mL (units (unknown) date) cut Negative unknown) (Negative) (unknown) (no (unknown) (unknown) U Tricyclic (units (un known) date) Antidepress unknown) (Negative) (unknown) (no (unknown) (unknown) U Tricyclic (units (un known) date) Antidepress unknown) Negative (Negative) (unknown) (no (unknown) (unknown) Ur Amphetamines (units (unknown) date) Screen (Negative) unknown) (unknown) (no (unknown) (unknown) Ur Amphetamines (units (unknown) date) Screen Negative unknown) (Negative) (unknown) (no (unknown) (unknown) Ur Barbiturates (units (unknown) date) Screen (Negative) unknown) (unknown) (no (unknown) (unknown) Ur Barbiturates (units (unknown) date) Screen Negative unknown) (Negative) (unknown) (no (unknown) (unknown) Ur MDMA Scrn (units (u nknown) date) (Ecstasy) unknown) (Negative) (unknown) (no (unknown) (unknown) Ur MDMA Scrn (units (u nknown) date) (Ecstasy) Negative unknown) (Negative) (unknown) (no (unknown) (unknown) Ur Oxycodone (units (u nknown) date) Screen (Negative) unknown) (unknown) (no (unknown) (unknown) Ur Oxycodone (units (u nknown) date) Screen Negative unknown) (Negative) (unknown) (no (unknown) (unknown) Ur Phencyclidine (units (unknown) date) Scrn (Negative) unknown) (unknown) (no (unknown) (unknown) Ur Phencyclidine (units (unknown) date) Scrn Negative unknown) (Negative) (unknown) (no (unknown) (unknown) Urine Cocaine (units ( unknown) date) Screen (Negative) unknown) (unknown) (no (unknown) (unknown) Urine Cocaine (units ( unknown) date) Screen Negative unknown) (Negative) (unknown) (no (unknown) (unknown) Urine Dip (units (unkn own) date) unknown) (unknown) (no (unknown) (unknown) Urine Methadone (units (unknown) date) Screen (Negative) unknown) (unknown) (no (unknown) (unknown) Urine Methadone (units (unknown) date) Screen Negative unknown) (Negative) (unknown) (no (unknown) (unknown) [facility] (units (unknown) date) and had prior unknown) authorization from [facility]. (unknown) (no (unknown) (unknown) Vital Signs - 8 hr (units (unknown) date) unknown) (unknown) (no (unknown) (unknown) Vital Signs (units (un known) date) unknown) (unknown) (no (unknown) (unknown) Vital signs: (units (u nknown) date) unknown) (unknown) (no (unknown) (unknown) WBC (4.5-11.0) (units (unknown) date) X103/uL unknown) (unknown) (no (unknown) (unknown) WBC 6.4 (4.5-11.0) (units (unknown) date) X103/uL unknown) (unknown) (no (unknown) (unknown) [Embedded Image (units (unknown) date) Not Available] unknown) (unknown) (no (unknown) (unknown) a 5-year-old (units (u nknown) date) presenting today unknown) with suicidal ideations. States that she has (unknown) (no (unknown) (unknown) alcohol intake (units (unknown) date) frequency: 0-2 unknown) drinks per day (unknown) (no (unknown) (unknown) are multiple guns (units (unknown) date) at home. She does unknown) not want to hurt her children however he (unknown) (no (unknown) (unknown) children. She does (units (unknown) date) have a couple with unknown) friends. 1 is here now. (unknown) (no (unknown) (unknown) continues to be (units (unknown) date) agreeable. She has unknown) been pumping breast milk, discussed options (unknown) (no (unknown) (unknown) difficulty (units (unk nown) date) unknown) (unknown) (no (unknown) (unknown) disposition. (units (u nknown) date) unknown) (unknown) (no (unknown) (unknown) documented, Denies (units (unknown) date) homicidal ideation unknown) and Reports suicidal ideation (unknown) (no (unknown) (unknown) feelings got even (units (unknown) date) worse. She says she unknown) does not trust herself at home. There (unknown) (no (unknown) (unknown) for temporary help (units (unknown) date) with the children unknown) and her who is currently deployed (unknown) (no (unknown) (unknown) found mildly (units (u nknown) date) helpful. She was unknown) significantly more anxious once EMS arrived but (unknown) (no (unknown) (unknown) gluten Allergy (units (unknown) date) Intermediate Hives unknown) Verified 12/20/21 06:35 (unknown) (no (unknown) (unknown) hand pump she is (units (unknown) date) trying to wean down unknown) and we discussed potential treatments to (unknown) (no (unknown) (unknown) having suicidal (units (unknown) date) ideation she has unknown) express that she is not sure she can stay safe (unknown) (no (unknown) (unknown) help prevent (units (u nknown) date) mastitis and unknown) engorgement. Patient was found placement at [facility] (unknown) (no (unknown) (unknown) intact (units (unkno wn) date) unknown) (unknown) (no (unknown) (unknown) is in process of (units (unknown) date) being contacted. unknown) Patient had 1 dose of oral Ativan which she (unknown) (no (unknown) (unknown) just feels like (units (unknown) date) she does not want unknown) to live. She does not want to feel this way (unknown) (no (unknown) (unknown) placement. Patient (units (unknown) date) does have unknown) [id number] here now for temporary help with (unknown) (no (unknown) (unknown) probable (units (unkno wn) date) placement. Patient unknown) does have [id number] here now for temporary help (unknown) (no (unknown) (unknown) she can ask for (units (unknown) date) supervised pumping unknown) with a regular pump, she can asked to have a (unknown) (no (unknown) (unknown) she does not know (units (unknown) date) why she is feeling unknown) this way. She does not trust herself. (unknown) (no (unknown) (unknown) she might lose her (units (unknown) date) children if she unknown) goes inpatient but is seeking treatment. (unknown) (no (unknown) (unknown) speech. (units (unkno wn) date) unknown) (unknown) (no (unknown) (unknown) started feeling (units (unknown) date) this way for a unknown) couple of weeks. Stating that she just does not (unknown) (no (unknown) (unknown) want to live. Her (units (unknown) date) deployed unknown) last week [place] (unknown) (no (unknown) (unknown) with children. She (units (unknown) date) does have a couple unknown) with friends. 1 is here now. (unknown) (no (unknown) (unknown) with her kids at (units (unknown) date) home she is unknown) voluntary. She is quite anxious and concerned that Social History No information. Vital Signs No information.
[2022-01-17] MEDS ORDERED: ACETAMINOPHEN 325 MG TABLET PO STA (00:08)
[2022-01-17 00:28] VITALS: BP 114/69
[2022-01-17] MEDS ORDERED: cephALEXin 250 MG CAPSULE PO STA (01:07)
--- NOTE | 2022-01-17 01:11 | ED Physician Documentation ---
PD HPI SKIN - Stated complaint Stated Complaint: ABD PX - Chief complaint Chief Complaint: Wound - History obtained from History obtained from: Patient - Additional information Additional information: 31yF, previously healthy, p/w superficial skin abscess on right lower abdomen that developed over the past couple days. gradual onset severe pain, constant, aching, a/w swelling and erythema. denies fevers. 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 : None HEENT: None Psych: Depression Musculoskeletal: None Derm: None Other Past Medical History: Post depression - Past Surgical History Past Surgical History: Yes General: Cholecystectomy /DISTRIBUTION CENTER MANAGER: section - Present Medications Home Medications: Ambulatory Orders Medication Instructions Recorded Confirmed buPROPion HCL [Bupropion Xl] 150 mg PO DAILY 01/16/22 01/16/22 busPIRone [Buspar] 5 mg PO TID 01/16/22 01/16/22 traZODone [Desyrel] 50 mg PO TID 01/16/22 01/16/22 cephALEXin [Keflex] 500 mg PO Q6H #28 01/17/22 cephALEXin [Keflex] 500 mg PO Q6H #28 tab 01/17/22 - Allergies Allergies/Adverse Reactions: Allergies Allergy/AdvReac Type Severity Reaction Status Date / Time No Known Drug Allergies Allergy Verified 01/16/22 18:48 - Social History Does the pt smoke?: No Smoking Status: Never smoker Does the pt drink ETOH?: No Does the pt have substance abuse?: No - Immunizations Immunizations are current?: Yes - POLST Patient has POLST: No PD ED PE NORMAL - Vitals Vital signs reviewed: Yes - General General: Alert and oriented X 3, No acute distress, Well developed/nourished - HEENT HEENT: Atraumatic, PERRL, EOMI - Abdomen Abdomen: Other (2 by 2cm fluctuant swelling and erythema to R lower abdomen) Results - Vitals Vitals: Vital Signs - 24 hr 01/16/22 01/16/22 01/17/22 18:46 21:34 00:26 Temperature 36.6 C 35.7 C L 36.9 C Heart Rate 80 76 80 Respiratory 14 16 16 Rate Blood Pressure 135/82 H 146/84 H 114/69 O2 Saturation 96 99 97 Oxygen O2 Source Room air Procedures - Abscess I&D (location) Abdomen right Preparation: Confirmed with ultrasound, Lidocaine 1%, With epi Incision: Incised with scalpel, Purulent drainage, Irrigated, Culture obtained Other: Pt tolerated well, Dressing applied, Antibiotic prescribed PD MEDICAL DECISION MAKING - ED course ED course: 31yF presented with abdominal superficial abscess, drained without issue. plan to f/u in 48h for wound check. return precautions given. abx prescribed. Departure - Departure Disposition: 01 Home, Self Care Clinical Impression: Abscess Condition: Good Instructions: ED Abscess IandD Prescriptions: cephALEXin [Keflex] 500 mg PO Q6H #28 cephALEXin [Keflex] 500 mg PO Q6H #28 tab Comments: You were seen in the ED for abscess. Please take your antibiotics as prescribed (sent to [facility] in [place]) and follow up with your primary care provider in 48 hours. Return to the ED if you are unable to see your doctor or if you have other concerns.
== END 2022-01-17 01:23 | disposition home or self-care (01) ==
LOC: ED 18:24
DX: L02.211 Cutaneous abscess of abdominal wall (principal)
CPT/HCPCS: 10060; 87070; 87205; 99283; A9270; 87181

== ENCOUNTER 2022-08-02 22:25 | Emergency (ER) | payer OTHER ==
[2022-08-02] MEDS ORDERED: TRIAMCINOLONE 0.1% CREAM 15 GM TUBE TOP STA (22:49)
[2022-08-02] MEDS ORDERED: KETOROLAC 30 MG/ML VIAL IM STA (22:49)
--- NOTE | 2022-08-02 22:55 | ED Physician Documentation ---
History of Present Illness - Stated complaint Stated Complaint: BACK PX - Chief complaint Chief Complaint: General - History obtained from History obtained from: Patient - Additonal information Additional information: 32yF with history of shingles p/w pruritic, burning skin eruption to L upper back. denies fever, allergen exposure. 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 : Chronic bladder infection HEENT: None Psych: Depression, Anxiety, Panic attacks Musculoskeletal: None Derm: None - Past Surgical History Past Surgical History: Yes General: Cholecystectomy /BEVELLER OPERATOR: section - Present Medications Home Medications: Ambulatory Orders Medication Instructions Recorded Confirmed buPROPion HCL [Bupropion Xl] 300 mg PO DAILY 01/16/22 08/02/22 busPIRone [Buspar] 5 mg PO TID PRN 01/16/22 08/02/22 traZODone [Desyrel] 75 mg PO QPM 01/16/22 08/02/22 Triamcinolone 0.1% Oint 1 applic TOP BID 7 Days #80 gm 08/02/22 Valacyclovir HCl [Valtrex] 1,000 mg PO TID #21 tablet 08/02/22 - Allergies Allergies/Adverse Reactions: Allergies Allergy/AdvReac Type Severity Reaction Status Date / Time gluten Allergy Hives Verified 08/02/22 22:32 - Social History Does the pt smoke?: No Smoking Status: Never smoker Does the pt drink ETOH?: No Does the pt have substance abuse?: No - Immunizations Immunizations are current?: Yes - POLST Patient has POLST: No PD ED PE NORMAL - Vitals Vital signs reviewed: Yes - General General: Alert and oriented X 3, No acute distress, Well developed/nourished - HEENT HEENT: Atraumatic, PERRL, EOMI - Derm Derm: Normal color, Warm and dry, Other (pustular rash to medial L upper back measuring about 3cm diameter) Results - Vitals Vitals: Vital Signs - 24 hr 08/02/22 22:28 Temperature 35.5 C L Heart Rate 84 Respiratory 19 Rate Blood Pressure 135/76 H O2 Saturation 97 Oxygen O2 Source Room air PD Medical Decision Making - ED course ED course: 32-year-old woman with history of shingles presents with nonspecific pustular eruption to left upper back with associated pruritus and burning sensation. She also states that she has itching to bilateral shoulders and pain. This all started today. I discussed with her that this may be shingles versus a nonspec [facility] skin eruption shortness of edition given her history of prior shingles is to go ahead and treat with valacyclovir since it has a low side effect profile and could benefit this early in disease if indeed it is herpes zoster. Patient will follow up with her primary care provider. Return precautions given. Departure - Departure Disposition: 01 Home, Self Care Clinical Impression: Rash and nonspecific skin eruption Prescriptions: Triamcinolone 0.1% Oint 1 applic TOP BID 7 Days #80 gm Valacyclovir HCl [Valtrex] 1,000 mg PO TID #21 tablet Comments: You are seen in the emergency department for pustular rash. Although we are unsure that this is definitely shingles, I am going to go ahead and prescribe antiviral in addition to steroid ointment for you. Please keep the rash covered wherever possible and wash your hands regularly. Follow-up with your primary care provider and return to the emergency department for new or worsening symptoms or other concerns.
[2022-08-02] MEDS ORDERED: TRIAMCINOLONE 0.1% CREAM 15 GM TUBE TOP ONE (23:03)
[2022-08-02] MEDS ORDERED: TRIAMCINOLONE 0.1% OINT 15 GM TUBE TOP ONE (23:04)
[2022-08-02 23:29] VITALS: BP 128/66
== END 2022-08-02 23:29 | disposition home or self-care (01) ==
LOC: ED 22:25
DX: R21 Rash and other nonspecific skin eruption (principal); Z79.899 Other long term (current) drug therapy
CPT/HCPCS: 96372; 99283; A9270

== ENCOUNTER 2022-10-03 18:30 | Emergency (ER) | payer OTHER ==
[2022-10-03] MEDS ORDERED: KETOROLAC 15 MG/ML VIAL IVP STA (18:56)
[2022-10-03] MEDS ORDERED: LORazepam 2 MG/ML VIAL IVP STA (18:56)
--- NOTE | 2022-10-03 18:57 | ED Physician Documentation ---
PD HPI CHEST PAIN - Stated complaint Stated Complaint: CHEST PX - Chief complaint Chief Complaint: Cardiac - History obtained from History obtained from: Patient - Additional information Additional information: 32-year-old woman with history of anxiety. No personal history of heart problems but her dad had PR and in his 30s. She presents with left upper anterior chest pain radiating to the left arm that has been constant since yesterday. Its associated with some neck and back pain as well. She is short of breath with it and it worsens if she takes a deep breath. She denies pedal edema or calf pain. No hemoptysis. She is not on any hormonal control, but has had her tubes tied. She tried a BuSpar thinking this might be anxiety but it was not very helpful. She has had similar chest pains with anxiety in the past but this is lasting much longer. 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 : Chronic bladder infection HEENT: None Psych: Depression, Anxiety, Panic attacks Musculoskeletal: None Derm: None - Past Surgical History Past Surgical History: Yes General: Cholecystectomy /FORM STRIPPER: section - Present Medications Home Medications: Ambulatory Orders Medication Instructions Recorded Confirmed buPROPion HCL [Bupropion Xl] 300 mg PO DAILY 01/16/22 08/02/22 busPIRone [Buspar] 5 mg PO TID PRN 01/16/22 08/02/22 traZODone [Desyrel] 75 mg PO QPM 01/16/22 08/02/22 - Allergies Allergies/Adverse Reactions: Allergies Allergy/AdvReac Type Severity Reaction Status Date / Time gluten Allergy Hives Verified 10/03/22 18:41 - Social History Does the pt smoke?: No Smoking Status: Never smoker Does the pt drink ETOH?: No Does the pt have substance abuse?: No - Immunizations Immunizations are current?: Yes - POLST Patient has POLST: No PD ED PE NORMAL - Vitals Vital signs reviewed: Yes - General General: Alert and oriented X 3, Other (She appears anxious and somewhat despondent as well.) - HEENT HEENT: PERRL, EOMI - Neck Neck: Supple, no meningeal sign, No bony TTP - Cardiac Cardiac: RRR, No murmur, Other (Chest pain is reproducible with palpation of the left upper chest wall.) - Respiratory Respiratory: No respiratory distress, Clear bilaterally - Abdomen Abdomen: Non tender - Extremities Extremities: No edema, No calf tenderness / cord - Neuro Neuro: Alert and oriented X 3, Normal speech Results - Vitals Vitals: Vital Signs - 24 hr 10/03/22 18:39 Temperature 37.1 C Heart Rate 89 Respiratory 18 Rate Blood Pressure 135/90 H O2 Saturation 99 Oxygen O2 Source Room air - EKG (time done) 1838 EKG releavant findings:: EKG personally interpreted by author of this note. Relevant findings are: Rate: Rate (enter#) (83) Rhythm: NSR [place]: Normal Intervals: Normal SC QRS: Normal Ischemia: Normal ST segments - Labs Labs: Laboratory Tests 10/03/22 10/03/22 10/03/22 19:07 19:07 19:07 WBC 6.3 RBC 4.16 L Hgb 13.0 Hct 37.1 MCV 89.2 MCH 31.3 H MCHC 35.0 RDW 12.3 Plt Count 234 MPV 9.4 Neut # (Auto) 3.6 Lymph # (Auto) 2.1 Pike # (Auto) 0.4 Eos # (Auto) 0.2 Baso # (Auto) 0.0 Absolute Nucleated RBC 0.00 Nucleated RBC % 0.0 D-Dimer < 200.0 L Sodium 137 Potassium 3.8 Chloride 104 Carbon Dioxide 27 Anion Gap 6.0 BUN 14 Creatinine 0.9 Estimated GFR (MDRD) 74 L Glucose 100 Calcium 9.7 Troponin I High Sens 10/03/22 19:07 WBC RBC Hgb Hct MCV MCH MCHC RDW Plt Count MPV Neut # (Auto) Lymph # (Auto) Pike # (Auto) Eos # (Auto) Baso # (Auto) Absolute Nucleated RBC Nucleated RBC % D-Dimer Sodium Potassium Chloride Carbon Dioxide Anion Gap BUN Creatinine Estimated GFR (MDRD) Glucose Calcium Troponin I High Sens < 2.3 L - Rads (name of study) Single view chest x-ray is unremarkable Relevant Findings:: Final report received, EMP independent interpretation of test PD Medical Decision Making - ED course ED course: CBC, D-dimer, troponin, and BNP all normal/negative. The pain is reproducible with palpation suggesting more of a musculoskeletal or superficial cause. Heart score 1 . She did get relief with IV ketorolac and Ativan. Departure - Departure Disposition: Home, Self Care Clinical Impression: Chest wall pain Condition: Good Record reviewed to determine appropriate education?: Yes Instructions: ED Chest Pain Costochondritis Comments: Rest assured that there is no serious identifiable cause of your chest pain. It does seem like a chest wall issue given that we are able to reproduce it with palpation of the chest wall and we have ruled out active heart disease and blood clots. Ibuprofen as needed for pain. You can also do heat and gentle stretching around the left shoulder and arm. Call your doctor to arrange a follow-up appointment, make the next available appointment. In the interim, return anytime if worse or if new symptoms develop. Forms: PCP List
[2022-10-03 19:16] LABS: BASOPHILS % (AUTO) 0.5 %; EOSINOPHILS # (AUTO) 0.2 10^3/uL (0.0-0.7); EOSINOPHILS % (AUTO) 2.6 %; HCT - HEMATOCRIT 37.1 % (37.0-47.0); LYMPHOCYTES # (AUTO) 2.1 10^3/uL (1.5-3.5); LYMPHOCYTES % (AUTO) 32.7 %; MEAN CORPUSCULAR HEMOGLOBIN 31.3 pg (27.0-31.0); MEAN CORPUSCULAR VOLUME 89.2 fL (81.0-99.0); MEAN PLATELET VOLUME 9.4 fL (7.9-10.8); MONOCYTES # (AUTO) 0.4 10^3/uL (0.0-1.0); MONOCYTES % (AUTO) 6.9 %; NEUTROPHILS # (AUTO) 3.6 10^3/uL (1.5-6.6); NEUTROPHILS % (AUTO) 56.8 %; PLT - PLATELET COUNT 234 10^3/uL (130-450); RED BLOOD COUNT 4.16 10^6/uL (4.20-5.40); RED CELL DISTRIBUTION WIDTH 12.3 % (12.0-15.0); WHITE BLOOD COUNT 6.3 x10^3/uL (4.8-10.8)
--- NOTE | 2022-10-03 19:31 | XRAY Report ---
PROCEDURE: Chest 1 View X-Ray INDICATIONS: chest pain TECHNIQUE: One view of the chest was acquired. COMPARISON: None. FINDINGS: Surgical changes and devices: None. Lungs and pleura: No pleural effusions or pneumothorax. Lungs are clear. Mediastinum: Mediastinal contours appear normal. Heart size is normal. Bones and chest wall: No suspicious bony lesions. Overlying soft tissues appear unremarkable. IMPRESSION: No acute cardiopulmonary process. Reviewed by: Onelia Landon MD on 10/03/2022 7:30 PM PDT Approved by: Onelia Landon MD on 10/03/2022 7:30 PM PDT Station ID: [id number]
[2022-10-03 19:34] LABS: CALCIUM 9.7 mg/dL (8.5-10.3); CREATININE 0.9 mg/dL (0.6-1.3); POTASSIUM 3.8 mmol/L (3.5-4.5)
[2022-10-03 20:02] VITALS: BP 120/75
== END 2022-10-03 20:01 | disposition home or self-care (01) ==
LOC: ED 18:30
DX: R07.89 Other chest pain (principal)
CPT/HCPCS: 36415; 71045; 80048; 84484; 85025; 85379; 93005; 96374; 99283; 99284; J2060